=== PATIENT | male | born 1970 | race Caucasian/White ===

== ENCOUNTER 2018-04-16 10:12 | Inpatient (IN) ==
--- NOTE | 2018-04-16 10:43 | ED ---
HPI General Chief complaint: Respiratory Symptoms Stated complaint: Cough/SOB/legs swelling x Sunday Time Seen by Provider: 04/16/18 10:29 History of Present Illness HPI narrative: 48-year-old man with history of heart failure and hypertension presents with 5-6-day history of progressive difficulty breathing, but also some cough and congestion and sputum production. He has no history of fever, although reports that he felt warm sometime last week, but apparently none since, has central chest discomfort, but only when he coughs deeply, and lasts only for seconds and subsides afterwards, but no pressure-like sensation, and no arm neck or jaw pain. Patient is hypoxemic at triage, with acute respiratory distress, tachypneic and severely hypoxemic with O2 saturation 86% on 2 LPM by nasal cannula. His last visit here was 2014, with heart failure, and reports that he has been receiving stable care at [facility], although he sees a different physician every time, and is generally treated with antihypertensive, diuretic, cholesterol medication, and potassium supplementation. He reports that his weights have been stable, but does not appear to check them daily, reports his current weight is 268, and that his best weight in approximately 3 years ago was in the 240s. He is not sure if he has been gaining any weight otherwise. Has no particular swelling of legs. Related Data Home Medications Medication Instructions Recorded Confirmed amlodipine 10 mg PO DAILY 04/16/18 04/16/18 bumetanide 2 mg PO DAILY 04/16/18 04/16/18 escitalopram oxalate [Lexapro] 20 mg PO DAILY 04/16/18 04/16/18 hydralazine 50 mg PO BID 04/16/18 04/16/18 isosorbide mononitrate 60 mg PO DAILY 04/16/18 04/16/18 lisinopril 20 mg PO DAILY 04/16/18 04/16/18 pravastatin 40 mg PO HS 04/16/18 04/16/18 Allergies Allergy/AdvReac Type Severity Reaction Status Date / Time No Known Allergies Allergy Verified 04/16/18 16:36 Review of Systems ROS: all other systems reviewed are negative Constitutional Denies body ache(s), Denies chills and Reports fever(s) ENT Denies sore throat Cardiovascular Denies chest pain, Denies diaphoresis, Denies lightheadedness and Reports dyspnea Respiratory Reports chest congestion, Reports pain with cough, Reports dyspnea and Reports wheezing Gastrointestinal Denies abdominal pain, Denies nausea and Denies vomiting Musculoskeletal Denies back pain Neurologic Denies dizziness, Denies syncope and Denies headache(s) Endocrine Denies heat intolerance, Denies polydipsia and Denies polyuria Hematologic/Lymphatic Denies easy bruising Allergic/Immunologic Denies urticaria, Denies throat swelling and Denies wheezing [facility] Medical History Medical History Anxiety (Acute) Chronic systolic CHF (congestive heart failure) (Acute) Hypertension (Acute) Family History Family History Other Hypertension Social History Social History Substance History: No History of Abuse Second Hand Smoke Exposure: No Smoking Status: Never smoker How Often Do You Have a Drink Containing Alcohol: Never Recent Travel in [facility] within the Last 8 Weeks: No Recent Out of Country Travel within the Last 8 Weeks: No Exam Narrative Exam Narrative: GENERAL: Middle-aged man, significantly obese, appears older than stated age, moderate acute distress, tachypneic, but not in overt pain, oxygen saturation is hypoxemic at 86% when patient is speaking, but goes into the mid 90s when he is resting and breathing steadily and deeply. Vital signs otherwise stable. Patient is afebrile SKIN: Focused skin assessment warm/dry. HEAD: Atraumatic. Normocephalic. EYES: Pupils equal and round. No scleral icterus. No injection or drainage. ENT: No nasal bleeding or discharge. Mucous membranes pink and moist. NECK: Trachea midline. No JVD. CARDIOVASCULAR: Regular rate and rhythm. No murmur appreciated. CHEST: Nontender, no bony discomfort, no costochondral discomfort. RESPIRATORY: Tachypneic with air hunger, speaks in short sentences, but lung laguna are generally clear to auscultation, no rales, rhonchi or wheezing. GASTROINTESTINAL: Abdomen soft, non-tender, nondistended. Hepatic and splenic margins not palpable. MUSCULOSKELETAL: No obvious deformities. No clubbing. No cyanosis. No edema. NEUROLOGICAL: Awake and alert. No obvious cranial nerve deficits. Motor grossly within normal limits. Normal speech. PSYCHIATRIC: Appropriate mood and affect; insight and judgment normal. Course Reevaluation(s) Reevaluation #1: Patient significantly hypoxemic, even on supplemental oxygen, with PO2 of 52, and mild respiratory compensation with PO2 of 7.495, and PCO2 of 29.5. There is no base deficit. Patient advanced to nonrebreather mask. Time: 11:14 Reevaluation #2: Patient improved symptomatically, but still tachypneic, and still requires nonrebreather mask at 4 L of oxygen to maintain 95% saturation. Chest x-ray indicates possibility of mass, with significant interstitial vascular congestion and cardiomegaly, compatible with heart failure primarily, possible underlying tumor. BNP elevated, greater than 1000. Troponin elevated, 1.05, but I think this is Type 2 injury, due to stress of heart failure. No overt ECG findings. Will repeat ECG. BP 179/89, will reduce afterload stress, hydralazine given. Time: 12:00 Initial Documented Vital Signs Temperature 99.2 F 04/16/18 10:31 Pulse Rate 118 H 04/16/18 10:31 Respiratory Rate 26 H 04/16/18 10:31 Blood Pressure 172/95 H 04/16/18 10:31 Pulse Oximetry 88 L 04/16/18 10:31 Last Documented Vital Signs Temperature 99.2 F 04/16/18 10:31 Pulse Rate 108 H 04/16/18 16:17 Respiratory Rate 22 04/16/18 16:17 Blood Pressure 169/93 H 04/16/18 16:17 Pulse Oximetry 97 04/16/18 16:17 Critical Care Time Critical Care Time: Yes Total Critical Care Time: 60 Attestation: 60 minutes of critical care time was provided to this patient in acute respiratory distress, with severe hypoxemia, and acute decompensated heart failure, requiring immediate stabilization, diuresis, and blood pressure management to ensure patient's stability, as conditions were at risk for significant life-threatening decompensation in the absence of intervening stabilization and management. No billable procedures performed during this encounter. Medical Decision Making MDM Narrative Medical decision making narrative: Patient has acute heart failure with typical symptoms of progressive shortness of breath, with good relief with diuresis, preload reduction and afterload reduction, the patient has an elevated troponin level, and patient will be admitted to the CICU of the [facility], after consultation with Dr. Collins and air pollution analyst Dr. Schafer. Patient also has x-ray concerning for right hilar mass, which will need evaluation, but patient is on able to lay down comfortably due to his dyspnea, and further evaluation of this will be deferred until patient is significant significantly improved. Patient's d-dimer is also elevated, and this can be evaluated after is improved as well. Medical Screen Exam Complete: Yes Emergency Medical Condition: Yes Lab Data Result diagrams: 04/16/18 10:50 04/16/18 10:50 Lab Results 04/16/18 04/16/18 04/16/18 Range/Units 10:50 10:50 10:50 CBC w Diff Auto diff final WBC 17.3 H (4.0-11.0) th/mm3 RBC 5.46 (4.50-5.90) mil/mm3 Hgb 15.8 (13.0-17.0) gm/dL Hct 47.3 (39.0-51.0) % MCV 86.7 (80.0-100.0) fL MCH 29.0 (27.0-34.0) pg MCHC 33.4 (32.0-36.0) % RDW 12.6 (11.6-17.2) % Plt Count 344 (150-450) th/mm3 MPV 9.3 (7.0-11.0) fL Neut % (Auto) 88.0 H (16.0-70.0) % Lymph % (Auto) 5.9 L (9.0-44.0) % Hoke % (Auto) 5.5 (0.0-8.0) % Eos % (Auto) 0.0 (0.0-4.0) % Baso % (Auto) 0.6 (0.0-2.0) % Neut # (Auto) 15.2 H (1.8-7.7) th/mm3 Lymph # (Auto) 1.0 (1.0-4.8) th/mm3 Hoke # (Auto) 1.0 H (0.0-0.9) th/mm3 Eos # (Auto) 0.0 (0.0-0.4) th/mm3 Baso # (Auto) 0.1 (0.0-0.2) th/mm3 WBC Differential . Differential Comment . PT 11.4 (9.8-11.6) sec INR 1.1 Ratio APTT (23.4-31.7) sec D-Dimer Quant (PE/DVT) (0.00-0.50) mg/L FEU Puncture Site Right radial Patient Temperature 98.6 O2 Saturation 84 L* (90-100) % ABG pH 7.50 H (7.380-7.420) ABG pCO2 30 L (38-42) mmHg ABG pO2 52 L* (61-120) mmHg ABG HCO3 23 (22-26) mmol/L ABG O2 Content 18.4 (12.0-20.0) Vol % ABG Base Excess -0.4 (-2-2) mmol/L ABG Methemoglobin 1.1 (0-2) % Davin Test Present Hemoglobin 15.7 (12.0-16.0) G/DL Carboxyhemoglobin 1.9 (0-4) % O2 Delivery Device Nasal cannula Liter Flow 2.00 L/M Critical Value Yes Sodium (136-145) meq/L Potassium (3.5-5.1) meq/L Chloride (98-107) meq/L Carbon Dioxide (21.0-32.0) meq/L Anion Gap (5-15) meq/L BUN (7-18) mg/dL Creatinine (0.60-1.30) mg/dL Estimated GFR (>89) mL/min Random Glucose (74-106) mg/dL Lactic Acid (0.4-2.0) mmol/L Calcium (8.5-10.1) mg/dL Magnesium (1.5-2.5) mg/dL Total Bilirubin (0.2-1.0) mg/dL AST (15-37) U/L ALT (12-78) U/L Alkaline Phosphatase (45-117) U/L Troponin I (0.02-0.05) ng/mL B-Natriuretic Peptide (0-100) pg/mL Total Protein (6.4-8.2) g/dL Albumin (3.4-5.0) g/dL Ur Collection Type Urine Color (Yellw/Straw) Urine Clarity (Clear) Urine pH (5.0-8.5) Ur Specific Left Hand (1.002-1.035) Urine Protein (Neg-Trace) mg/dL Urine Glucose (UA) (Negative) mg/dL Urine Ketones (Negative) mg/dL Urine Occult Blood (Negative) Urine Nitrate (Negative) Urine Bilirubin (Negative) Urine Urobilinogen (Less than 2) mg/dL Ur Leukocyte Esterase (Negative) Urine RBC (0-3) /hpf Urine WBC (0-5) /hpf Ur Squamous Epith Cells (0-5) /hpf Fine Granular Casts (None) /lpf Micro UA Comment Ur Microscopic Review Urine Culture Comments 04/16/18 04/16/18 04/16/18 Range/Units 10:50 10:50 10:50 CBC w Diff WBC (4.0-11.0) th/mm3 RBC (4.50-5.90) mil/mm3 Hgb (13.0-17.0) gm/dL Hct (39.0-51.0) % MCV (80.0-100.0) fL MCH (27.0-34.0) pg MCHC (32.0-36.0) % RDW (11.6-17.2) % Plt Count (150-450) th/mm3 MPV (7.0-11.0) fL Neut % (Auto) (16.0-70.0) % Lymph % (Auto) (9.0-44.0) % Hoke % (Auto) (0.0-8.0) % Eos % (Auto) (0.0-4.0) % Baso % (Auto) (0.0-2.0) % Neut # (Auto) (1.8-7.7) th/mm3 Lymph # (Auto) (1.0-4.8) th/mm3 Hoke # (Auto) (0.0-0.9) th/mm3 Eos # (Auto) (0.0-0.4) th/mm3 Baso # (Auto) (0.0-0.2) th/mm3 WBC Differential Differential Comment PT (9.8-11.6) sec INR Ratio APTT (23.4-31.7) sec D-Dimer Quant (PE/DVT) 1.40 H (0.00-0.50) mg/L FEU Puncture Site Patient Temperature O2 Saturation (90-100) % ABG pH (7.380-7.420) ABG pCO2 (38-42) mmHg ABG pO2 (61-120) mmHg ABG HCO3 (22-26) mmol/L ABG O2 Content (12.0-20.0) Vol % ABG Base Excess (-2-2) mmol/L ABG Methemoglobin (0-2) % Davin Test Hemoglobin (12.0-16.0) G/DL Carboxyhemoglobin (0-4) % O2 Delivery Device Liter Flow L/M Critical Value Sodium 132 L (136-145) meq/L Potassium 3.5 (3.5-5.1) meq/L Chloride 96 L (98-107) meq/L Carbon Dioxide 24.8 (21.0-32.0) meq/L Anion Gap 11 (5-15) meq/L BUN 18 (7-18) mg/dL Creatinine 1.00 (0.60-1.30) mg/dL Estimated GFR 80 L (>89) mL/min Random Glucose 200 H (74-106) mg/dL Lactic Acid (0.4-2.0) mmol/L Calcium 8.2 L (8.5-10.1) mg/dL Magnesium 2.2 (1.5-2.5) mg/dL Total Bilirubin 1.0 (0.2-1.0) mg/dL AST 51 H (15-37) U/L ALT 74 (12-78) U/L Alkaline Phosphatase 201 H (45-117) U/L Troponin I 1.05 H* (0.02-0.05) ng/mL B-Natriuretic Peptide 1016 H (0-100) pg/mL Total Protein 8.4 H (6.4-8.2) g/dL Albumin 3.1 L (3.4-5.0) g/dL Ur Collection Type Urine Color (Yellw/Straw) Urine Clarity (Clear) Urine pH (5.0-8.5) Ur Specific Left Hand (1.002-1.035) Urine Protein (Neg-Trace) mg/dL Urine Glucose (UA) (Negative) mg/dL Urine Ketones (Negative) mg/dL Urine Occult Blood (Negative) Urine Nitrate (Negative) Urine Bilirubin (Negative) Urine Urobilinogen (Less than 2) mg/dL Ur Leukocyte Esterase (Negative) Urine RBC (0-3) /hpf Urine WBC (0-5) /hpf Ur Squamous Epith Cells (0-5) /hpf Fine Granular Casts (None) /lpf Micro UA Comment Ur Microscopic Review Urine Culture Comments 04/16/18 04/16/18 04/16/18 Range/Units 10:50 12:00 12:05 CBC w Diff WBC (4.0-11.0) th/mm3 RBC (4.50-5.90) mil/mm3 Hgb (13.0-17.0) gm/dL Hct (39.0-51.0) % MCV (80.0-100.0) fL MCH (27.0-34.0) pg MCHC (32.0-36.0) % RDW (11.6-17.2) % Plt Count (150-450) th/mm3 MPV (7.0-11.0) fL Neut % (Auto) (16.0-70.0) % Lymph % (Auto) (9.0-44.0) % Hoke % (Auto) (0.0-8.0) % Eos % (Auto) (0.0-4.0) % Baso % (Auto) (0.0-2.0) % Neut # (Auto) (1.8-7.7) th/mm3 Lymph # (Auto) (1.0-4.8) th/mm3 Hoke # (Auto) (0.0-0.9) th/mm3 Eos # (Auto) (0.0-0.4) th/mm3 Baso # (Auto) (0.0-0.2) th/mm3 WBC Differential Differential Comment PT Cancelled (9.8-11.6) sec INR Cancelled Ratio APTT 28.7 (23.4-31.7) sec D-Dimer Quant (PE/DVT) (0.00-0.50) mg/L FEU Puncture Site Patient Temperature O2 Saturation (90-100) % ABG pH (7.380-7.420) ABG pCO2 (38-42) mmHg ABG pO2 (61-120) mmHg ABG HCO3 (22-26) mmol/L ABG O2 Content (12.0-20.0) Vol % ABG Base Excess (-2-2) mmol/L ABG Methemoglobin (0-2) % Davin Test Hemoglobin (12.0-16.0) G/DL Carboxyhemoglobin (0-4) % O2 Delivery Device Liter Flow L/M Critical Value Sodium (136-145) meq/L Potassium (3.5-5.1) meq/L Chloride (98-107) meq/L Carbon Dioxide (21.0-32.0) meq/L Anion Gap (5-15) meq/L BUN (7-18) mg/dL Creatinine (0.60-1.30) mg/dL Estimated GFR (>89) mL/min Random Glucose (74-106) mg/dL Lactic Acid 2.4 H (0.4-2.0) mmol/L Calcium (8.5-10.1) mg/dL Magnesium (1.5-2.5) mg/dL Total Bilirubin (0.2-1.0) mg/dL AST (15-37) U/L ALT (12-78) U/L Alkaline Phosphatase (45-117) U/L Troponin I (0.02-0.05) ng/mL B-Natriuretic Peptide (0-100) pg/mL Total Protein (6.4-8.2) g/dL Albumin (3.4-5.0) g/dL Ur Collection Type Clean catch Urine Color Yellow (Yellw/Straw) Urine Clarity Clear (Clear) Urine pH 5.5 (5.0-8.5) Ur Specific Left Hand Greater/equal 1.030 (1.002-1.035) Urine Protein 300 or greater H (Neg-Trace) mg/dL Urine Glucose (UA) Negative (Negative) mg/dL Urine Ketones Trace H (Negative) mg/dL Urine Occult Blood Trace (Negative) Urine Nitrate Negative (Negative) Urine Bilirubin Negative (Negative) Urine Urobilinogen 0.2 (Less than 2) mg/dL Ur Leukocyte Esterase Negative (Negative) Urine RBC 0-3 (0-3) /hpf Urine WBC 0-5 (0-5) /hpf Ur Squamous Epith Cells 0-5 (0-5) /hpf Fine Granular Casts 1-3 H (None) /lpf Micro UA Comment Culture not ind Ur Microscopic Review Microscopic reviewed Urine Culture Comments Culture not ind 04/16/18 Range/Units 14:40 CBC w Diff WBC (4.0-11.0) th/mm3 RBC (4.50-5.90) mil/mm3 Hgb (13.0-17.0) gm/dL Hct (39.0-51.0) % MCV (80.0-100.0) fL MCH (27.0-34.0) pg MCHC (32.0-36.0) % RDW (11.6-17.2) % Plt Count (150-450) th/mm3 MPV (7.0-11.0) fL Neut % (Auto) (16.0-70.0) % Lymph % (Auto) (9.0-44.0) % Hoke % (Auto) (0.0-8.0) % Eos % (Auto) (0.0-4.0) % Baso % (Auto) (0.0-2.0) % Neut # (Auto) (1.8-7.7) th/mm3 Lymph # (Auto) (1.0-4.8) th/mm3 Hoke # (Auto) (0.0-0.9) th/mm3 Eos # (Auto) (0.0-0.4) th/mm3 Baso # (Auto) (0.0-0.2) th/mm3 WBC Differential Differential Comment PT (9.8-11.6) sec INR Ratio APTT (23.4-31.7) sec D-Dimer Quant (PE/DVT) (0.00-0.50) mg/L FEU Puncture Site Patient Temperature O2 Saturation (90-100) % ABG pH (7.380-7.420) ABG pCO2 (38-42) mmHg ABG pO2 (61-120) mmHg ABG HCO3 (22-26) mmol/L ABG O2 Content (12.0-20.0) Vol % ABG Base Excess (-2-2) mmol/L ABG Methemoglobin (0-2) % Davin Test Hemoglobin (12.0-16.0) G/DL Carboxyhemoglobin (0-4) % O2 Delivery Device Liter Flow L/M Critical Value Sodium (136-145) meq/L Potassium (3.5-5.1) meq/L Chloride (98-107) meq/L Carbon Dioxide (21.0-32.0) meq/L Anion Gap (5-15) meq/L BUN (7-18) mg/dL Creatinine (0.60-1.30) mg/dL Estimated GFR (>89) mL/min Random Glucose (74-106) mg/dL Lactic Acid (0.4-2.0) mmol/L Calcium (8.5-10.1) mg/dL Magnesium (1.5-2.5) mg/dL Total Bilirubin (0.2-1.0) mg/dL AST (15-37) U/L ALT (12-78) U/L Alkaline Phosphatase (45-117) U/L Troponin I 3.16 H* (0.02-0.05) ng/mL B-Natriuretic Peptide (0-100) pg/mL Total Protein (6.4-8.2) g/dL Albumin (3.4-5.0) g/dL Ur Collection Type Urine Color (Yellw/Straw) Urine Clarity (Clear) Urine pH (5.0-8.5) Ur Specific Left Hand (1.002-1.035) Urine Protein (Neg-Trace) mg/dL Urine Glucose (UA) (Negative) mg/dL Urine Ketones (Negative) mg/dL Urine Occult Blood (Negative) Urine Nitrate (Negative) Urine Bilirubin (Negative) Urine Urobilinogen (Less than 2) mg/dL Ur Leukocyte Esterase (Negative) Urine RBC (0-3) /hpf Urine WBC (0-5) /hpf Ur Squamous Epith Cells (0-5) /hpf Fine Granular Casts (None) /lpf Micro UA Comment Ur Microscopic Review Urine Culture Comments Imaging Data Radiologist's impression: Chest X-Ray 04/16/18 10:44 CONCLUSION: Masslike opacity right hilum Cardiomegaly with interstitial vascular congestion. ECG Data EKG Prior to Arrival: No Attestation: I personally reviewed and interpreted this ECG as follows: Interpretation: or any signs of cardiac progression at theEKG taken at 1025 hrs. is of poor technical quality, no prior tracings available for review. Baseline rhythm is sinus tachycardia, and there are frequent multifocal PVCs. QRS morphology shows nonspecific intraventricular conduction delay, with an increased QRS duration of 122 ms. QRS axis is normal at [address] segments showed nonspecific changes, but no acute elevations or depressions, and T waves are upright throughout on observation of the [place] rhythm. No STEMI is identified, no ischemia identified. NH interval is 120 ms, QT interval is normal at 412 ms corrected. Repeat EKG taken at 1328 hrs. shows stable ventricular bigeminy, but no evidence of signs of ST elevation or T wave inversion negative rhythm. Ventricular rate has decreased to 111 bpm, NH interval is 164 ms, QRS interval remains prolonged at 115 ms, QT interval remains unchanged at 421 ms corrected. This is abnormal tracing primarily significant for ventricular bigeminy. Discharge Plan Discharge Disposition Patient Disposition: 02 Transfer To [facility] [place] Discharge Condition Condition: Fair Discharge Details Diagnosis: Heart failure of unknown etiology, Acute respiratory distress, Hypoxemia, Hilar mass, D-dimer, elevated Physicians Team ED Provider: Alexey Palencia Primary Care Provider: LIZZ, Attending Provider: Jose R Judd Other Providers: Erickson Rushing Status ED Status: Admitted Patient
[2018-04-16 10:57] LABS: ABG Base Excess -0.4 mmol/L (-2-2); ABG PCO2 30 mmHg (38-42); ABG PO2 52 mmHg (61-120)
--- NOTE | 2018-04-16 11:10 | XR ---
EXAM DATE: 04/16/2018 11:06 AM EST AGE/SEX: 48 years / Male INDICATIONS: Short of breath for five days. CLINICAL DATA: This is the patient's initial encounter. Patient reports that signs and symptoms have been present for 4 - 6 days and indicates a pain score of 0/10. MEDICAL/SURGICAL HISTORY: . Hypertension and cardiomyopathy. Congestive heart failure None. COMPARISON: [facility], CHEST SINGLE AP, 12/26/2014. . FINDINGS: A masslike opacity is identified in the right hilum. There is generalized interstitial vascular congestion with patchy airspace disease bilaterally. The heart is moderately to markedly enlarged. There are no significant pleural effusions. CONCLUSION: Masslike opacity right hilum Cardiomegaly with interstitial vascular congestion. Electronically signed by: Reji Hernandez MD 04/16/2018 11:08 AM EST
[2018-04-16 11:16] LABS: Baso # (Auto) 0.1 th/mm3 (0.0-0.2); Baso % (Auto) 0.6 % (0.0-2.0); Hematocrit 47.3 % (39.0-51.0); Hemoglobin 15.8 gm/dL (13.0-17.0); Lymph % (Auto) 5.9 % (9.0-44.0); Mean Corpuscular HGB Conc 33.4 % (32.0-36.0); Mean Corpuscular Volume 86.7 fL (80.0-100.0); Mean Platelet Volume 9.3 fL (7.0-11.0); Mono % (Auto) 5.5 % (0.0-8.0); Neut # (Auto) 15.2 th/mm3 (1.8-7.7); Platelet Count 344 th/mm3 (150-450); Red Blood Count 5.46 mil/mm3 (4.50-5.90); Red Cell Distribution Width 12.6 % (11.6-17.2); White Blood Count 17.3 th/mm3 (4.0-11.0)
[2018-04-16 11:32] LABS: Chloride 96 meq/L (98-107); Potassium 3.5 meq/L (3.5-5.1); Sodium 132 meq/L (136-145)
[2018-04-16 11:34] LABS: INR 1.1 Ratio; Prothrombin Time 11.4 sec (9.8-11.6)
[2018-04-16 11:36] LABS: Calcium 8.2 mg/dL (8.5-10.1)
[2018-04-16 11:37] LABS: Albumin 3.1 g/dL (3.4-5.0); Anion Gap 11 meq/L (5-15); Blood Urea Nitrogen 18 mg/dL (7-18); Carbon Dioxide 24.8 meq/L (21.0-32.0); Glucose,Random 200 mg/dL (74-106); Magnesium 2.2 mg/dL (1.5-2.5)
[2018-04-16 11:40] LABS: Alanine Aminotransferase 74 U/L (12-78); Aspartate Aminotransferase 51 U/L (15-37); Glomerular Filtration Rate 80 mL/min (>89)
[2018-04-16 11:41] LABS: Total Protein 8.4 g/dL (6.4-8.2)
[2018-04-16 11:43] LABS: Alkaline Phosphatase 201 U/L (45-117)
[2018-04-16 12:03] LABS: Troponin I 1.05 ng/mL (0.02-0.05)
--- NOTE | 2018-04-16 12:14 | ECG ---
Date Performed: 04/16/2018 Time Performed: 10:25:18 PTAGE: 48 years EKG: SINUS TACHYCARDIA WITH FREQUENT VENTRICULAR PREMATURE COMPLEXES MODERATE INTRAVENTRICULAR C ONDUCTION DELAY ABNORMAL RHYTHM ECG PREVIOUS TRACING : 12/26/2014 17.22 DOCTOR: Martin Cody Interpretating Date/Time 04/16/2018 12:12:49
[2018-04-16] MEDS ORDERED: hydrALAZINE HCl Inj 20 MG/ML Vial IV.PUSH ONE (12:18)
[2018-04-16 12:21] LABS: Bilirubin,Urine Negative (Negative); Clarity,Urine Clear (Clear); Color,Urine Yellow (Yellw/Straw); Glucose,Urine (UA) Negative (Negative); Leukocyte Esterase,Urine Negative (Negative); Nitrite,Urine Negative (Negative); PH,Urine 5.5 (5.0-8.5); Specific Gravity,Urine Greater/Equal 1.030 (1.002-1.035); Urobilinogen,Urine 0.2 mg/dL (Less than 2)
[2018-04-16 12:30] LABS: RBC,Urine 0-3 /hpf (0-3); Squamous Epithelial Cell,Urine 0-5 /hpf (0-5); WBC,Urine 0-5 /hpf (0-5)
[2018-04-16] MEDS ORDERED: Acetaminophen 325 MG Tablet PO PRN ×2 (14:22→17:00)
[2018-04-16] MEDS: Heparin Drip 25,000 UNIT/250 ML BAG IV.CONT PRN (16:20)
[2018-04-16] MEDS ORDERED: Heparin - SQ 10,000 UNITS/ML Vial SQ SCH (17:00)
[2018-04-16] MEDS ORDERED: hydrALAZINE HCl Inj 20 MG/ML Vial IV.PUSH PRN (17:00)
--- NOTE | 2018-04-16 17:26 | P.HPIM ---
History of Present Illness Primary Care Physician: UNKNOWN Chief Complaint: Shortness of breath History of Present Illness: The patient is a 48-year-old male with a past medical history of CHF who is presenting to the hospital with worsening shortness of breath. The patient says that on he was working and had some [place] food when he started to feel increased shortness of breath and had some dark mucus production. The patient then developed upper chest pain that he likened to having a chest cold. He said that he had a panic attack that day. He said his symptoms gradually got better and he did well throughout the weekend. Starting yesterday he had worsening shortness of breath. Family noticed that he cannot sleep flat on his back and has to sleep elevated. The patient also endorses swelling in his feet. He has lost energy over the past few days. He does state that he has run out of several home medications including his water pill and his Lexapro. He says it has been a few weeks since he took those medications. He says he did have a bout of heart failure several years ago. He says that his breathing is currently improved. He says he has not had any further chest pain since last . He has not been following up with cardiology recently. Inpatient Certification: I certify that the inpatient services were ordered in accordance with Medicare regulations governing the order. This includes certification that hospital inpatient services are reasonable and necessary and in the case of services not specified as inpatient-only under 42 CFR 419.22(n), that they are appropriately provided as inpatient services in accordance to with the 2-midnight benchmark under 43 CFR 412.3(e) Estimated Total Length of Stay (Days): 2 Plans for Post Hospital Care: Not yet determined Review of Systems All other systems reviewed negative except as stated in HPI [facility] - History History Provided By: Patient - Medical History Medical History: Medical History (Last Updated 04/16/18 @ 17:19 by Jose R Judd DO) Anxiety Chronic systolic CHF (congestive heart failure) Hypertension - Family History Family History: Family History (Last Updated 04/16/18 @ 17:20 by Jose R Judd DO) Other Hypertension - Social History I have reviewed the patient's Social History: Yes - Tobacco History Second Hand Smoke Exposure: No Smoking Status: Never smoker - Alcohol History How Often Do You Have a Drink Containing Alcohol: Never - Substance Use History Substance History: No History of Abuse - Travel History Recent Travel in the [place] Within the Last 8 Weeks: No Recent Travel Out of the Country Within the Last 8 Weeks: No - Immunization History Tetanus Immunization: Unsure Medications and Allergies Active Medications: Active Medications Acetaminophen (Tylenol) 650 mg PO Q4H PRN PRN Reason: HEADACHE OR TEMP > 101 F Amlodipine Besylate (Norvasc) 10 mg PO DAILY [facility] Aspirin (Ecotrin) 325 mg PO DAILY [facility] Enalaprilat (Vasotec Inj) 1.25 mg IV.PUSH Q6H PRN PRN Reason: SEE LABEL COMMENTS Escitalopram Oxalate (Lexapro) 20 mg PO DAILY [facility] Furosemide (Lasix Inj) 40 mg IV.PUSH BID@0900,1800 [facility] Hydralazine HCl (Apresoline) 50 mg PO BID DAN[facility] Hydralazine HCl (Apresoline Inj) 10 mg IV.PUSH Q6H PRN PRN Reason: SEE LABEL COMMENTS Heparin Sodium/Dextrose (Heparin/D5w 25,000 U/250 Ml) 25,000 unit in 250 mls @ 0 mls/hr IV.CONT TITRATE PRN; Protocol PRN Reason: Per Protocol Last Admin: 04/16/18 16:20 Dose: 1,000 units/hr, 10 mls/hr Isosorbide Mononitrate (Imdur) 60 mg PO DAILY [facility] Lisinopril (Prinivil) 20 mg PO DAILY [facility] Metoprolol Tartrate (Lopressor) 12.5 mg PO BID [facility] Nitroglycerin (Nitrostat Sl) 0.4 mg SL Q5M PRN PRN Reason: CHEST PAIN Nitroglycerin (Nitro-Bid 2% Oint) 1 inch TOPICAL Q6HR [facility] Pravastatin Sodium (Pravachol) 40 mg PO HS [facility] Sodium Chloride (Ns Inj) 2 ml IV.FLUSH BID DANIELLA Sodium Chloride (Ns Inj) 2 ml IV.FLUSH UNSCH PRN PRN Reason: FLUSH AFTER USING IV ACCESS Allergies Allergy/AdvReac Type Severity Reaction Status Date / Time No Known Allergies Allergy Verified 04/16/18 16:36 Home Medications Medication Instructions Recorded Confirmed Type amlodipine 10 mg PO DAILY 04/16/18 04/16/18 History bumetanide 2 mg PO DAILY 04/16/18 04/16/18 History escitalopram oxalate [Lexapro] 20 mg PO DAILY 04/16/18 04/16/18 History hydralazine 50 mg PO BID 04/16/18 04/16/18 History isosorbide mononitrate 60 mg PO DAILY 04/16/18 04/16/18 History lisinopril 20 mg PO DAILY 04/16/18 04/16/18 History pravastatin 40 mg PO HS 04/16/18 04/16/18 History Exam Vital signs: Vital Signs 04/16/18 10:31 04/16/18 10:35 04/16/18 10:45 Temperature 99.2 F Pulse Rate 118 H 110 H Respiratory Rate 26 H Blood Pressure 172/95 H Pulse Oximetry 88 L 93 L 04/16/18 11:32 04/16/18 11:34 04/16/18 11:36 Temperature Pulse Rate 118 H Respiratory Rate 22 Blood Pressure 179/78 H Pulse Oximetry 95 95 98 04/16/18 12:34 04/16/18 12:52 04/16/18 13:07 Temperature Pulse Rate 113 H Respiratory Rate 22 Blood Pressure 176/92 H 174/71 H 178/81 H Pulse Oximetry 97 04/16/18 14:47 04/16/18 14:48 04/16/18 16:17 Temperature Pulse Rate 110 H 108 H Respiratory Rate 20 22 Blood Pressure 167/79 H 169/93 H Pulse Oximetry 96 96 97 Intake & Output 04/15/18 04/16/18 04/16/18 18:59 06:59 18:59 Intake Total 150 / 150 Output Total 850 / 850 Balance -700 / -700 Weight 126 kg Intake: IV 150 / 150 Levaquin 750 mg Premix Inj 150 150 / 150 ML @ 100 mls/hr IV.SIG ONCE ONE Rx#:[id number] Output: Urine 850 / 850 Narrative: GENERAL: Appears older than stated age, no acute distress. SKIN: Focused skin assessment warm/dry. HEAD: Atraumatic. Normocephalic. EYES: Pupils equal and round. No scleral icterus. No injection or drainage. ENT: No nasal bleeding or discharge. Mucous membranes pink and moist. NECK: Trachea midline. No JVD. CARDIOVASCULAR: Tachycardic. No murmur appreciated. RESPIRATORY: Lung laguna are generally clear to auscultation, no rales, rhonchi or wheezing. GASTROINTESTINAL: Abdomen soft, non-tender, nondistended. Hepatic and splenic margins not palpable. MUSCULOSKELETAL: No obvious deformities. No clubbing. No cyanosis. 1+ edema. NEUROLOGICAL: Awake and alert. No obvious cranial nerve deficits. Motor grossly within normal limits. Normal speech. PSYCHIATRIC: Appropriate mood and affect; insight and judgment normal. Results - Labs CBC & Chem 7: 04/16/18 10:50 04/16/18 10:50 Labs: Short CBC 04/16/18 Range/Units 10:50 WBC 17.3 H (4.0-11.0) th/mm3 Hgb 15.8 (13.0-17.0) gm/dL Hct 47.3 (39.0-51.0) % Plt Count 344 (150-450) th/mm3 BMP 04/16/18 10:50 Sodium 132 L Potassium 3.5 Chloride 96 L Carbon Dioxide 24.8 BUN 18 Creatinine 1.00 Calcium 8.2 L Cardiac Enzymes 04/16/18 04/16/18 Range/Units 10:50 14:40 Troponin I 1.05 H* 3.16 H* (0.02-0.05) ng/mL Liver Function 04/16/18 Range/Units 10:50 Total Bilirubin 1.0 (0.2-1.0) mg/dL AST 51 H (15-37) U/L ALT 74 (12-78) U/L Alkaline Phosphatase 201 H (45-117) U/L Albumin 3.1 L (3.4-5.0) g/dL Urine 04/16/18 Range/Units 12:00 Urine Color Yellow (Yellw/Straw) Urine Clarity Clear (Clear) Urine pH 5.5 (5.0-8.5) Ur Specific [place] Greater/equal 1.030 (1.002-1.035) Urine Protein 300 or greater H (Neg-Trace) mg/dL Urine Glucose (UA) Negative (Negative) mg/dL - Imaging Impressions Chest X-Ray 04/16/18 10:44 CONCLUSION: Masslike opacity right hilum Cardiomegaly with interstitial vascular congestion. Caprini VTE Risk Assessment Caprini VTE Risk Assessment: Moderate/High Risk (score >= 2) Caprini Risk Assessment Model: Point Value = 1 Point Value = 2 Point Value = 3 Point Value = 5 Age 41-60 Minor surgery BMI > 25 kg/m2 Swollen legs Varicose veins or History of unexplained or recurrent spontaneous Oral contraceptives or hormone replacement Sepsis (< 1 month) Serious lung disease, including pneumonia (< 1 month) Abnormal pulmonary function Acute myocardial infarction Congestive heart failure (< 1 month) History of inflammatory bowel disease Medical patient at bed rest Age 61-74 Arthroscopic surgery Major open surgery (> 45 min) Laparoscopic surgery (> 45 min) Malignancy Confined to bed (> 72 hours) Immobilizing plaster cast Central venous access Age >= 75 History of VTE Family history of VTE Factor V Leiden Prothrombin [id number] Lupus anticoagulant Anticardiolipin antibodies Elevated serum homocysteine Heparin-induced thrombocytopenia Other congenital or acquired thrombophilia Stroke (< 1 month) Elective arthroplasty Hip, pelvis, or leg fracture Acute spinal cord injury (< 1 month) Prophylaxis Regimen: Total Risk Factor Score Risk Level Prophylaxis Regimen 0-1 Low Early ambulation 2 Moderate Order ONE of the following: *Sequential Compression Device (SCD) *Heparin 5000 units SQ BID 3-4 Higher Order ONE of the following medications: *Heparin 5000 units SQ TID *Enoxaparin/Lovenox 40 mg SQ daily (WT < 150 kg, CrCl > 30 mL/min) *Enoxaparin/Lovenox 30 mg SQ daily (WT < 150 kg, CrCl > 10-29 mL/min) *Enoxaparin/Lovenox 30 mg SQ BID (WT < 150 kg, CrCl > 30 mL/min) AND/OR *Sequential Compression Device (SCD) 5 or more Highest Order ONE of the following medications: *Heparin 5000 units SQ TID (Preferred with Epidurals) *Enoxaparin/Lovenox 40 mg SQ daily (WT < 150 kg, CrCl > 30 mL/min) *Enoxaparin/Lovenox 30 mg SQ daily (WT < 150 kg, CrCl > 10-29 mL/min) *Enoxaparin/Lovenox 30 mg SQ BID (WT < 150 kg, CrCl > 30 mL/min) AND *Sequential Compression Device (SCD) Assessment and Plan - Plan Acute on chronic systolic CHF/NSTEMI Patient presents with shortness of breath and lower extremity edema. BNP elevated at 1016. Chest x-ray with vascular congestion. The patient ran out of several medications including his diuretic. Troponin is elevated at 3.16. EKG with sinus rhythm, frequent PVCs and intraventricular conduction delay. -Cardiology consult requested. The patient is pending a transfer to the [facility]. -Telemetry. -Lasix 40 mg IV BID. -follow Is and Os, daily weights. -Continue heparin drip. -Check lipid profile and A1c. -Blood pressure control. -trend trops and EKGs. Accelerated hypertension Blood pressure poorly controlled at this time. -Resume home medications. -Hydralazine or Vasotec IV as needed. -Nitropaste. Lung mass Chest x-ray with masslike opacity at the right hilum. -We will repeat chest x-ray or pursue CT of the chest once respiratory and cardiac status have improved. Hyponatremia Appears hypervolemic. -diurese and monitor. Noncompliance The pt ran out of many medications weeks ago and has not bothered to get them refilled. -compliance recommended. -resume home meds. PPx: Heparin gtt Discharge Planning: Transfer to [facility]
[2018-04-16] MEDS: amLODIPine 10 MG Tablet PO SCH (19:50)
[2018-04-16] MEDS: Lisinopril 20 MG Tablet PO SCH (19:50)
--- NOTE | 2018-04-16 19:54 | P.CONCA ---
History of Present Illness Service: Cardiology Consult date: 04/16/18 Requesting Physician: Jose R Judd Reason for Consult: Elevated troponin and CHF Primary Care Provider: UNKNOWN Chief Complaint: Shortness of breath History of Present Illness: This is a 48-year-old male with a past medical history of CHF. He presented to the [facility] Emergency Department with complaints of increase shortness of breath since of last week. He states that he had some [place] food that day and developed SOB with some dark mucous production. He stated, that his SOB improved over the weekend but started to increase yesterday. He also noticed swelling of his lower extremities and increase fatigue. He informed me that he ran out of some of his medications including his water pill a few weeks ago and has not followed up with a wealth management consultant in a few years. He currently states that his breathing is slowly improving and that he has not had any CP since of last week. Review of Systems All other systems reviewed negative except as stated in HPI [facility] - History History Provided By: Patient - Medical History Medical History: Medical History (Last Updated 04/16/18 @ 17:19 by Jose R Judd DO) Anxiety Chronic systolic CHF (congestive heart failure) Hypertension - Family History Family History: Family History (Last Updated 04/16/18 @ 17:20 by Jose R Judd DO) Other Hypertension - Tobacco History Second Hand Smoke Exposure: No Smoking Status: Never smoker - Alcohol History How Often Do You Have a Drink Containing Alcohol: Never - Substance Use History Substance History: No History of Abuse - Travel History Recent Travel in the [place] Within the Last 8 Weeks: No Recent Travel Out of the Country Within the Last 8 Weeks: No - Immunization History Tetanus Immunization: Unsure Medications and Allergies Allergies Allergy/AdvReac Type Severity Reaction Status Date / Time No Known Allergies Allergy Verified 04/16/18 16:36 Home Medications Medication Instructions Recorded Confirmed Type amlodipine 10 mg PO DAILY 04/16/18 04/16/18 History bumetanide 2 mg PO DAILY 04/16/18 04/16/18 History escitalopram oxalate [Lexapro] 20 mg PO DAILY 04/16/18 04/16/18 History hydralazine 50 mg PO BID 04/16/18 04/16/18 History isosorbide mononitrate 60 mg PO DAILY 04/16/18 04/16/18 History lisinopril 20 mg PO DAILY 04/16/18 04/16/18 History pravastatin 40 mg PO HS 04/16/18 04/16/18 History Active Medications: Active Medications Acetaminophen (Tylenol) 650 mg PO Q4H PRN PRN Reason: HEADACHE OR TEMP > 101 F Amlodipine Besylate (Norvasc) 10 mg PO DAILY [facility] Aspirin (Ecotrin) 325 mg PO DAILY DANIELLA Enalaprilat (Vasotec Inj) 1.25 mg IV.PUSH Q6H PRN PRN Reason: SEE LABEL COMMENTS Escitalopram Oxalate (Lexapro) 20 mg PO DAILY DANIELLA Furosemide (Lasix Inj) 40 mg IV.PUSH BID@0900,1800 DANIELLA Hydralazine HCl (Apresoline) 50 mg PO BID DANIELLA Hydralazine HCl (Apresoline Inj) 10 mg IV.PUSH Q6H PRN PRN Reason: SEE LABEL COMMENTS Heparin Sodium/Dextrose (Heparin/D5w 25,000 U/250 Ml) 25,000 unit in 250 mls @ 0 mls/hr IV.CONT TITRATE PRN; Protocol PRN Reason: Per Protocol Last Titration: 04/16/18 17:37 Dose: 1,000 units/hr, 10 mls/hr Isosorbide Mononitrate (Imdur) 60 mg PO DAILY [facility] Lisinopril (Prinivil) 20 mg PO DAILY [facility] Metoprolol Tartrate (Lopressor) 12.5 mg PO BID [facility] Nitroglycerin (Nitrostat Sl) 0.4 mg SL Q5M PRN PRN Reason: CHEST PAIN Nitroglycerin (Nitro-Bid 2% Oint) 1 inch TOPICAL Q6HR [facility] Pravastatin Sodium (Pravachol) 40 mg PO HS [facility] Sodium Chloride (Ns Inj) 2 ml IV.FLUSH BID DANIELLA Sodium Chloride (Ns Inj) 2 ml IV.FLUSH UNSCH PRN PRN Reason: FLUSH AFTER USING IV ACCESS Exam Vital signs: Vital Signs 04/16/18 10:31 04/16/18 10:35 04/16/18 10:45 Temperature 99.2 F Pulse Rate 118 H 110 H Respiratory Rate 26 H Blood Pressure 172/95 H Pulse Oximetry 88 L 93 L 04/16/18 11:32 04/16/18 11:34 04/16/18 11:36 Temperature Pulse Rate 118 H Respiratory Rate 22 Blood Pressure 179/78 H Pulse Oximetry 95 95 98 04/16/18 12:34 04/16/18 12:52 04/16/18 13:07 Temperature Pulse Rate 113 H Respiratory Rate 22 Blood Pressure 176/92 H 174/71 H 178/81 H Pulse Oximetry 97 04/16/18 14:47 04/16/18 14:48 04/16/18 16:17 Temperature Pulse Rate 110 H 108 H Respiratory Rate 20 22 Blood Pressure 167/79 H 169/93 H Pulse Oximetry 96 96 97 04/16/18 17:29 04/16/18 18:15 Temperature Pulse Rate 112 H 118 H Respiratory Rate 20 18 Blood Pressure 172/92 H 140/90 Pulse Oximetry 96 97 Intake & Output 04/16/18 04/16/18 04/17/18 06:59 18:59 06:59 Intake Total 160 / 160 Output Total 850 / 850 Balance -690 / -690 Weight 126 kg Intake: IV 160 / 160 Heparin/D5W 25,000 U/250 mL 25, 10 / 10 000 unit In 250 ml @ Per Protocol IV.CONT TITRATE PRN Rx #:[id number] Levaquin 750 mg Premix Inj 150 150 / 150 ML @ 100 mls/hr IV.SIG ONCE ONE Rx#:[id number] Output: Urine 850 / 850 - Constitutional mild distress - Routine HEENT Exam Head: Present: normocephalic Eye: Present: PERRL ENT: Present: mucous membranes moist - Routine Neck Exam Present: full ROM - Routine Respiratory Exam Present: decreased breath sounds - Routine Cardiovascular Exam Present: S1, S2. Absent: murmur, gallop, rubs - Routine Abdominal Exam Present: normoactive bowel sounds - Routine Extremities Exam Present: edema, full ROM, pulses intact, normal capillary refill. Absent: cyanosis, clubbing - Routine Skin Exam Present: intact - Routine Neurological Exam Present: oriented X3 Results 04/16/18 10:50 04/16/18 10:50 Cardiac Enzymes 04/16/18 04/16/18 04/16/18 Range/Units 10:50 10:50 14:40 AST 51 H (15-37) U/L Troponin I 1.05 H* 3.16 H* (0.02-0.05) ng/mL B-Natriuretic Peptide 1016 H (0-100) pg/mL Coagulation 04/16/18 04/16/18 04/16/18 Range/Units 10:50 10:50 10:50 PT 11.4 Cancelled (9.8-11.6) sec APTT 28.7 (23.4-31.7) sec B-Natriuretic Peptide 1016 H (0-100) pg/mL CBC 04/16/18 Range/Units 10:50 WBC 17.3 H (4.0-11.0) th/mm3 RBC 5.46 (4.50-5.90) mil/mm3 Hgb 15.8 (13.0-17.0) gm/dL Hct 47.3 (39.0-51.0) % Plt Count 344 (150-450) th/mm3 Neut # (Auto) 15.2 H (1.8-7.7) th/mm3 Lymph # (Auto) 1.0 (1.0-4.8) th/mm3 [place] # (Auto) 1.0 H (0.0-0.9) th/mm3 Eos # (Auto) 0.0 (0.0-0.4) th/mm3 Baso # (Auto) 0.1 (0.0-0.2) th/mm3 Comprehensive Metabolic Panel 04/16/18 Range/Units 10:50 Sodium 132 L (136-145) meq/L Potassium 3.5 (3.5-5.1) meq/L Chloride 96 L (98-107) meq/L Carbon Dioxide 24.8 (21.0-32.0) meq/L BUN 18 (7-18) mg/dL Creatinine 1.00 (0.60-1.30) mg/dL Calcium 8.2 L (8.5-10.1) mg/dL AST 51 H (15-37) U/L ALT 74 (12-78) U/L Alkaline Phosphatase 201 H (45-117) U/L Total Protein 8.4 H (6.4-8.2) g/dL Albumin 3.1 L (3.4-5.0) g/dL Intake and Output 04/16/18 04/16/18 04/16/18 06:59 14:59 22:59 Intake Total 150 / 150 10 / 10 Output Total 450 / 450 400 / 400 Balance -300 / -300 -390 / -390 Intake: IV 150 / 150 10 / 10 Heparin/D5W 25,000 U/250 mL 25, 10 / 10 000 unit In 250 ml @ Per Protocol IV.CONT TITRATE PRN Rx #:[id number] Levaquin 750 mg Premix Inj 150 150 / 150 ML @ 100 mls/hr IV.SIG ONCE ONE Rx#:[id number] Output: Urine 450 / 450 400 / 400 Other: Weight 126 kg Patient Weight 04/17/18 06:59 Weight 126 kg - Imaging and Cardiology Imaging: Impressions Chest X-Ray 04/16/18 10:44 CONCLUSION: Masslike opacity right hilum Cardiomegaly with interstitial vascular congestion. Assessment and Plan - Assessment (1) Heart failure of unknown etiology Code(s): I50.9 - Heart failure, unspecified Status: Acute (2) Acute respiratory distress Code(s): R06.03 - Acute respiratory distress Status: Acute (3) Hypoxemia Code(s): R09.02 - Hypoxemia Status: Acute (4) D-dimer, elevated Code(s): R79.89 - Other specified abnormal findings of blood chemistry Status : Acute - Plan Patient currently on a 100% NRB, continue diuresis with Lasix and CHF treatment plan. We will obtain a 2D echo to evaluate LV function. Troponin levels are slightly elevated, we will continue to monitor. Continue to monitor patient on telemetry. We will continue to follow the patient during his hospitalization The patient was seen and evaluated by Dr. Ruhsing who participated in care, management and decision making. - Attending Attestation Patient seen and examined. I reviewed and agree with the evaluation and plan as presented. Obtain echo to evaluate LV function. Troponin elevated, may need ischemic workup once stabilized. Continue therapy for CHF including diuresis.
[2018-04-16 20:44] LABS: Chol/HDL Ratio 4.02 Ratio; HDL Cholesterol 49.4 mg/dL (40.0-60.0)
[2018-04-16 21:35] LABS: Hemoglobin A1c 8.8 % (4.3-6.0)
[2018-04-16] MEDS: hydrALAZINE 50 MG Tablet PO SCH (23:57)
[2018-04-16] MEDS: Metoprolol Tartrate 25 MG Tablet PO SCH (23:59)
[2018-04-17 07:13] LABS: Baso # (Auto) 0.1 th/mm3 (0.0-0.2); Baso % (Auto) 0.4 % (0.0-2.0); Hematocrit 43.1 % (39.0-51.0); Hemoglobin 14.6 gm/dL (13.0-17.0); Lymph # (Auto) 1.4 th/mm3 (1.0-4.8); Lymph % (Auto) 8.9 % (9.0-44.0); Mean Corpuscular HGB Conc 33.8 % (32.0-36.0); Mean Corpuscular Hemoglobin 30.3 pg (27.0-34.0); Mean Corpuscular Volume 89.7 fL (80.0-100.0); Mean Platelet Volume 9.6 fL (7.0-11.0); Mono # (Auto) 1.7 th/mm3 (0.0-0.9); Mono % (Auto) 10.8 % (0.0-8.0); Neut # (Auto) 12.4 th/mm3 (1.8-7.7); Neut % (Auto) 79.9 % (16.0-70.0); Platelet Count 257 th/mm3 (150-450); Red Cell Distribution Width 13.5 % (11.6-17.2); White Blood Count 15.5 th/mm3 (4.0-11.0)
[2018-04-17 07:47] LABS: Albumin 2.9 g/dL (3.4-5.0); Anion Gap 11 meq/L (5-15); Aspartate Aminotransferase 72 U/L (15-37); Blood Urea Nitrogen 29 mg/dL (7-18); Calcium 8.3 mg/dL (8.5-10.1); Carbon Dioxide 26.6 meq/L (21.0-32.0); Chloride 94 meq/L (98-107); Glomerular Filtration Rate 59 mL/min (>89); Glucose,Random 171 mg/dL (74-106); Potassium 3.4 meq/L (3.5-5.1); Sodium 132 meq/L (136-145)
[2018-04-17 07:48] LABS: Alanine Aminotransferase 60 U/L (12-78)
[2018-04-17 07:51] LABS: Alkaline Phosphatase 163 U/L (45-117); Total Protein 7.7 g/dL (6.4-8.2)
[2018-04-17] MEDS ORDERED: Lisinopril 20 MG Tablet PO SCH (09:00)
[2018-04-17] MEDS: Isosorbide Mononitrate 60 MG ER 24HR Tablet (Imdur) PO SCH (09:24)
[2018-04-17] MEDS: amLODIPine 10 MG Tablet PO SCH ×2 (09:24→14:00)
[2018-04-17] MEDS: Metoprolol Tartrate 25 MG Tablet PO SCH ×2 (09:25→22:00)
[2018-04-17] MEDS: Lisinopril 20 MG Tablet PO SCH (09:25)
[2018-04-17] MEDS: hydrALAZINE 50 MG Tablet PO SCH ×3 (09:26→22:01)
--- NOTE | 2018-04-17 10:50 | P.PNCA ---
Subjective Interval history: Patient denies any CP, pressure, palpitations or dizziness. Patient complains of edema and SOB. Patient states that the edema is improving and is breathing is getting easier. Medications and Allergies Allergies Allergy/AdvReac Type Severity Reaction Status Date / Time No Known Allergies Allergy Verified 04/16/18 16:36 Home Medications Medication Instructions Recorded Confirmed Type amlodipine 10 mg PO DAILY 04/16/18 04/16/18 History bumetanide 2 mg PO DAILY 04/16/18 04/16/18 History escitalopram oxalate [Lexapro] 20 mg PO DAILY 04/16/18 04/16/18 History hydralazine 50 mg PO BID 04/16/18 04/16/18 History isosorbide mononitrate 60 mg PO DAILY 04/16/18 04/16/18 History lisinopril 20 mg PO DAILY 04/16/18 04/16/18 History pravastatin 40 mg PO HS 04/16/18 04/16/18 History Active Medications: Active Medications Acetaminophen (Tylenol) 650 mg PO Q4H PRN PRN Reason: HEADACHE OR TEMP > 101 F Amlodipine Besylate (Norvasc) 10 mg PO DAILY [facility] Last Admin: 04/16/18 19:50 Dose: 10 mg Aspirin (Ecotrin) 325 mg PO DAILY [facility] Last Admin: 04/17/18 09:25 Dose: 325 mg Enalaprilat (Vasotec Inj) 1.25 mg IV.PUSH Q6H PRN PRN Reason: SEE LABEL COMMENTS Escitalopram Oxalate (Lexapro) 20 mg PO DAILY [facility] Last Admin: 04/17/18 09:26 Dose: 20 mg Furosemide (Lasix Inj) 40 mg IV.PUSH BID@0900,1800 [facility] Last Admin: 04/17/18 09:24 Dose: 40 mg Hydralazine HCl (Apresoline) 50 mg PO BID [facility] Last Admin: 04/16/18 23:57 Dose: 50 mg Hydralazine HCl (Apresoline Inj) 10 mg IV.PUSH Q6H PRN PRN Reason: SEE LABEL COMMENTS Heparin Sodium/Dextrose (Heparin/D5w 25,000 U/250 Ml) 25,000 unit in 250 mls @ 0 mls/hr IV.CONT TITRATE PRN; Protocol PRN Reason: Per Protocol Last Titration: 04/16/18 17:37 Dose: 1,000 units/hr, 10 mls/hr Isosorbide Mononitrate (Imdur) 60 mg PO DAILY [facility] Last Admin: 04/17/18 09:24 Dose: 60 mg Lisinopril (Prinivil) 20 mg PO DAILY [facility] Last Admin: 04/17/18 09:25 Dose: 20 mg Metoprolol Tartrate (Lopressor) 12.5 mg PO BID [facility] Last Admin: 04/17/18 09:25 Dose: 12.5 mg Nitroglycerin (Nitrostat Sl) 0.4 mg SL Q5M PRN PRN Reason: CHEST PAIN Nitroglycerin (Nitro-Bid 2% Oint) 1 inch TOPICAL Q6HR [facility] Last Admin: 04/17/18 05:41 Dose: 1 inch Pravastatin Sodium (Pravachol) 40 mg PO HS [facility] Last Admin: 04/16/18 23:57 Dose: 40 mg Sodium Chloride (Ns Inj) 2 ml IV.FLUSH BID [facility] Last Admin: 04/17/18 09:26 Dose: 2 ml Sodium Chloride (Ns Inj) 2 ml IV.FLUSH UNSCH PRN PRN Reason: FLUSH AFTER USING IV ACCESS Physical Exam Vital signs: Vital Signs 04/16/18 10:31 04/16/18 10:35 04/16/18 10:45 Temperature 99.2 F Pulse Rate 118 H 110 H Respiratory Rate 26 H Blood Pressure 172/95 H Pulse Oximetry 88 L 93 L 04/16/18 11:32 04/16/18 11:34 04/16/18 11:36 Temperature Pulse Rate 118 H Respiratory Rate 22 Blood Pressure 179/78 H Pulse Oximetry 95 95 98 04/16/18 12:34 04/16/18 12:52 04/16/18 13:07 Temperature Pulse Rate 113 H Respiratory Rate 22 Blood Pressure 176/92 H 174/71 H 178/81 H Pulse Oximetry 97 04/16/18 14:47 04/16/18 14:48 04/16/18 16:17 Temperature Pulse Rate 110 H 108 H Respiratory Rate 20 22 Blood Pressure 167/79 H 169/93 H Pulse Oximetry 96 96 97 04/16/18 17:29 04/16/18 18:15 04/16/18 20:00 Temperature 97 F L Pulse Rate 112 H 118 H 117 H Respiratory Rate 20 18 18 Blood Pressure 172/92 H 140/90 173/105 H Pulse Oximetry 96 97 95 04/16/18 21:00 04/16/18 22:00 04/16/18 23:00 Temperature Pulse Rate 114 H 116 H 110 H Respiratory Rate Blood Pressure Pulse Oximetry 04/17/18 00:00 04/17/18 01:00 04/17/18 02:00 Temperature 99.1 F Pulse Rate 109 H 102 H 106 H Respiratory Rate 20 Blood Pressure 135/67 Pulse Oximetry 96 04/17/18 03:00 04/17/18 04:00 04/17/18 05:00 Temperature 99.5 F Pulse Rate 102 H 95 H 92 H Respiratory Rate 20 Blood Pressure 154/88 H Pulse Oximetry 96 04/17/18 06:00 04/17/18 07:00 04/17/18 07:52 Temperature Pulse Rate 98 H 92 H Respiratory Rate Blood Pressure Pulse Oximetry 96 04/17/18 08:00 04/17/18 09:00 04/17/18 09:27 Temperature 99.1 F Pulse Rate 100 H 104 H 97 H Respiratory Rate 24 Blood Pressure 140/85 127/80 Pulse Oximetry 96 98 Intake & Output 04/16/18 04/17/18 04/17/18 18:59 06:59 18:59 Intake Total 160 / 160 240 / 240 Output Total 850 / 850 375 / 375 Balance -690 / -690 -135 / -135 Weight 126 kg 106.5 kg Intake: IV 160 / 160 Heparin/D5W 25,000 U/250 mL 25, 10 / 10 000 unit In 250 ml @ Per Protocol IV.CONT TITRATE PRN Rx #:[id number] Levaquin 750 mg Premix Inj 150 150 / 150 ML @ 100 mls/hr IV.SIG ONCE ONE Rx#:[id number] Oral 240 / 240 Output: Urine 850 / 850 375 / 375 Other: Date of Last Bowel Movement 04/15/18 - Constitutional mild distress - Routine HEENT Exam Head: Present: normocephalic Eye: Present: PERRL ENT: Present: mucous membranes moist - Routine Neck Exam Present: full ROM - Routine Respiratory Exam Present: decreased breath sounds, distant breath sounds Comments: Patient on a 100% NRB at this time. - Routine Cardiovascular Exam Present: S1, S2. Absent: murmur, gallop, rubs - Routine Abdominal Exam Present: normoactive bowel sounds - Routine Extremities Exam Present: edema, full ROM, pulses intact, normal capillary refill. Absent: cyanosis, clubbing - Routine Skin Exam Present: intact - Routine Neurological Exam Present: oriented X3 - Detailed Neurological Exam: Coma Scale Eye Opening: Spontaneous Verbal Response: Oriented Motor Response: Obey commands Dada Coma Scale Total: 15 - Routine Psychiatric Exam Present: normal affect Results 04/17/18 05:24 04/17/18 05:24 Cardiac Enzymes 04/16/18 04/16/18 04/16/18 Range/Units 10:50 10:50 14:40 AST 51 H (15-37) U/L Troponin I 1.05 H* 3.16 H* (0.02-0.05) ng/mL B-Natriuretic Peptide 1016 H (0-100) pg/mL 04/16/18 04/17/18 Range/Units 19:47 05:24 AST 72 H (15-37) U/L Troponin I 6.82 H* (0.02-0.05) ng/mL B-Natriuretic Peptide (0-100) pg/mL Coagulation 04/16/18 04/16/18 04/16/18 Range/Units 10:50 10:50 10:50 PT 11.4 Cancelled (9.8-11.6) sec APTT 28.7 (23.4-31.7) sec B-Natriuretic Peptide 1016 H (0-100) pg/mL 04/16/18 04/17/18 Range/Units 20:05 05:24 PT (9.8-11.6) sec APTT 29.4 31.0 (23.4-31.7) sec B-Natriuretic Peptide (0-100) pg/mL Lipids 04/16/18 Range/Units 19:47 Triglycerides 108 (42-150) mg/dL Cholesterol 199 (120-200) mg/dL HDL Cholesterol 49.4 (40.0-60.0) mg/dL Cholesterol/HDL Ratio 4.02 Ratio CBC 04/16/18 04/17/18 Range/Units 10:50 05:24 WBC 17.3 H 15.5 H (4.0-11.0) th/mm3 RBC 5.46 4.80 (4.50-5.90) mil/mm3 Hgb 15.8 14.6 (13.0-17.0) gm/dL Hct 47.3 43.1 (39.0-51.0) % Plt Count 344 257 (150-450) th/mm3 Neut # (Auto) 15.2 H 12.4 H (1.8-7.7) th/mm3 Lymph # (Auto) 1.0 1.4 (1.0-4.8) th/mm3 [place]cock # (Auto) 1.0 H 1.7 H (0.0-0.9) th/mm3 Eos # (Auto) 0.0 0.0 (0.0-0.4) th/mm3 Baso # (Auto) 0.1 0.1 (0.0-0.2) th/mm3 Comprehensive Metabolic Panel 04/16/18 04/17/18 Range/Units 10:50 05:24 Sodium 132 L 132 L (136-145) meq/L Potassium 3.5 3.4 L (3.5-5.1) meq/L Chloride 96 L 94 L (98-107) meq/L Carbon Dioxide 24.8 26.6 (21.0-32.0) meq/L BUN 18 29 H (7-18) mg/dL Creatinine 1.00 1.30 (0.60-1.30) mg/dL Calcium 8.2 L 8.3 L (8.5-10.1) mg/dL AST 51 H 72 H (15-37) U/L ALT 74 60 (12-78) U/L Alkaline Phosphatase 201 H 163 H (45-117) U/L Total Protein 8.4 H 7.7 D (6.4-8.2) g/dL Albumin 3.1 L 2.9 L (3.4-5.0) g/dL Intake and Output 04/16/18 04/17/18 04/17/18 22:59 06:59 14:59 Intake Total 240 / 240 Output Total 400 / 400 375 / 375 Balance -390 / -390 -135 / -135 Intake: IV Heparin/D5W 25,000 U/250 mL 25, 10 / 10 000 unit In 250 ml @ Per Protocol IV.CONT TITRATE PRN Rx #:[id number] Oral 240 / 240 Output: Urine 400 / 400 375 / 375 Other: Date of Last Bowel Movement 04/15/18 Weight 106.5 kg - Imaging and Cardiology Imaging: Impressions Chest X-Ray 04/16/18 10:44 CONCLUSION: Masslike opacity right hilum Cardiomegaly with interstitial vascular congestion. Assessment and Plan - Assessment (1) Heart failure of unknown etiology Code(s): I50.9 - Heart failure, unspecified Status: Acute (2) Acute respiratory distress Code(s): R06.03 - Acute respiratory distress Status: Acute (3) Hypoxemia Code(s): R09.02 - Hypoxemia Status: Acute (4) D-dimer, elevated Code(s): R79.89 - Other specified abnormal findings of blood chemistry Status : Acute - Plan We will continue with CHF management including aggressive diuresis. 2D echo to evaluate LV function. Patient is fluid overloaded, troponin levels are trending up, we will continue aggressive diuresis until patient is stable from a respiratory standpoint. He will need evaluation for ischemic heart disease once stable. We will consult pulmonology to evaluate respiratory status. Continue to monitor patient on telemetry. We will continue to follow the patient during his hospitalization The patient was seen and evaluated by Dr. Rushing who participated in care, management and decision making. - Attending Attestation Patient seen and examined. I reviewed and agree with the evaluation and plan as presented. Continue therapy for CHF including diuresis. Will schedule adenosine myocardial perfusion study if possible tomorrow.
--- NOTE | 2018-04-17 13:36 | ECHRPT ---
Indication: HEART FAILURE CONCLUSIONS Severely dilated left ventricle. Mild concentric left ventricular hypertrophy. The left ventricular systolic function is severely reduced with an estimated ejection fraction in th e range of 30-35%. The left atrial size is xjcp-ty-wugiynqzok dilated. Uxkvz-fe-vwni mitral valve regurgitation. The estimated pulmonary arterial pressure is 19 mmHg. BP: / HR: Rhythm: MEASUREMENTS (Male / Female) Normal Values Technical Quality:Technically difficult study 2D ECHO LV Diastolic Diameter PLAX 6.4 cm 4.2 - 5.9 / 3.9 - 5.3 cm LV Systolic Diameter PLAX 5.8 cm IVS Diastolic Thickness 1.3 cm 0.6 - 1.0 / 0.6 - 0.9 cm LVPW Diastolic Thickness 1.3 cm 0.6 - 1.0 / 0.6 - 0.9 cm LV Relative Wall Thickness 0.4 RV Internal Dim ED PLAX 3.3 cm LVOT Diameter 2.1 cm Aortic Root Diameter 2.7 cm LA Systolic Diameter LX 4.7 cm 3.0 - 4.0 / 2.7 - 3.8 cm LV Ejection Fraction MOD 4C 33.5 % LV Ejection Fraction 4C AL 33.2 % M-MODE Aortic Root Diameter MM 3.4 cm LA Systolic Diameter MM 6.1 cm LA Ao Ratio MM 1.8 AV Cusp Separation MM 2.0 cm DOPPLER AV Peak Velocity 159.0 cm/s AV Peak Gradient 10.1 mmHg LVOT Peak Velocity 86.4 cm/s LVOT Peak Gradient 3.0 mmHg AV Area Cont Eq pk 1.9 cm Mitral E Point Velocity 129.0 cm/s Mitral A Point Velocity 46.9 cm/s Mitral E to A Ratio 2.8 LV E' Lateral Velocity 5.2 cm/s Mitral E to LV E' Lateral Ratio 24.6 LV E' Septal Velocity 6.5 cm/s Mitral E to LV E' Septal Ratio 19.8 TR Peak Velocity 153.0 cm/s TR Peak Gradient 9.4 mmHg Right Atrial Pressure 10.0 mmHg Pulmonary Artery Systolic Pressu 19.4 mmHg Right Ventricular Systolic Press 19.4 mmHg PV Peak Velocity 103.0 cm/s PV Peak Gradient 4.2 mmHg FINDINGS LEFT VENTRICLE Severely dilated left ventricle. Mild concentric left ventricular hypertrophy. The left ventricular systolic function is severely reduced with an estimated ejection fraction in th e range of 30-35%. RIGHT VENTRICLE Normal right ventricular size and systolic function. LEFT ATRIUM The left atrial size is lvmu-il-sndcugashs dilated. RIGHT ATRIUM The right atrial size is normal. ATRIAL SEPTUM Normal atrial septal thickness without atrial level shunting by limited color doppler interrogation. AORTA The aortic root and proximal ascending aorta are normal in size on limited imaging. MITRAL VALVE Vsshu-pr-rhon mitral valve regurgitation. AORTIC VALVE Trileaflet aortic valve. No aortic valve stenosis or regurgitation. TRICUSPID VALVE The estimated pulmonary arterial pressure is 19 mmHg. PULMONARY VALVE No pulmonary valve regurgitation or stenosis. VESSELS The inferior vena cava is normal in size. PERICARDIUM No pericardial effusion. Martin Cody MD, FACC (Electronically Signed) Final Date:17 April 2018 13:35
[2018-04-17] MEDS: Heparin Drip 25,000 UNIT/250 ML BAG IV.CONT PRN (14:39)
--- NOTE | 2018-04-17 15:16 | P.PNIM ---
Subjective Interval history: Follow-up heart failure. States he is feeling better with improved shortness of breath has not been out of bed. Oxygen saturation 91% on 6 L. Patient verbalizes understanding that he needs to be compliant with his medical therapy. Physical Exam Vital signs: Last Vital Signs Temp 98.7 F 04/17/18 11:00 Pulse 87 04/17/18 11:00 Resp 22 04/17/18 11:00 BP 126/71 04/17/18 14:00 Pulse Ox 93 L 04/17/18 11:00 Intake & Output 04/15/18 04/16/18 04/17/18 04/18/18 06:59 06:59 06:59 06:59 Intake Total 400 / 400 250 / 250 Output Total 1225 / 1225 Balance -825 / -825 250 / 250 Weight 106.5 kg Narrative: GENERAL: Appears older than stated age, no acute distress. SKIN: Focused skin assessment warm/dry. CARDIOVASCULAR: Regular rate and rhythm. No murmur appreciated. RESPIRATORY: Lung laguna are equal with occasional rhonchi GASTROINTESTINAL: Abdomen soft, non-tender, nondistended. MUSCULOSKELETAL: No obvious deformities. No clubbing. No cyanosis. 1+ edema. NEUROLOGICAL: Awake and alert. No obvious cranial nerve deficits. Motor grossly within normal limits. Normal speech. PSYCHIATRIC: Appropriate mood and affect; insight and judgment normal. Results Labs CBC & Chem 7: 04/17/18 05:24 04/17/18 05:24 Labs: Microbiology 04/16/18 12:05 Blood - Peripheral Aerobic Blood Culture - Preliminary No growth in 1 day 04/16/18 12:05 Blood - Peripheral Anaerobic Blood Culture - Preliminary No growth in 1 day 04/16/18 12:00 Blood - Peripheral Aerobic Blood Culture - Preliminary No growth in 1 day 04/16/18 12:00 Blood - Peripheral Anaerobic Blood Culture - Preliminary No growth in 1 day 04/16/18 11:00 Nasal Wash Influenza Types A,B Antigen - Final Negative for FLU A and B antigen Infection due to influenza A or B cannot be ruled out since the antigen present in the sample may be below the detection limit of the test. Assessment and Plan (1) Heart failure of unknown etiology: Code(s): I50.9 - Heart failure, unspecified Status: Acute (2) Acute respiratory distress: Code(s): R06.03 - Acute respiratory distress Status: Acute (3) Hypoxemia: Code(s): R09.02 - Hypoxemia Status: Acute (4) D-dimer, elevated: Code(s): R79.89 - Other specified abnormal findings of blood chemistry Status: Acute Plan Acute on chronic systolic CHF/NSTEMI. EF 30% with LVH. Clinically improving on diuresis Patient presents with shortness of breath and lower extremity edema. BNP elevated at 1016. Chest x-ray with vascular congestion. The patient ran out of several medications including his diuretic. Troponin is elevated at 3.16. EKG with sinus rhythm, frequent PVCs and intraventricular conduction delay. -CHF education, I/O and monitor weight -Telemetry. -Lasix 40 mg IV BID. Monitor electrolytes -Continue heparin drip. -LDL elevated on pravastatin (patient has not been compliant) -Blood pressure control. -will need stress test or cardiac catheterization per cardiology. Continue aspirin, beta-alvarez, lisinopril and nitrates. Consider LifeVest. Repeat echo in 3 months on optimal management, may need ICD Accelerated hypertension. Improved Blood pressure poorly controlled at this time. -Resume home medications. -Hydralazine or Vasotec IV as needed. -Nitropaste. Lung mass Chest x-ray with masslike opacity at the right hilum. -We will repeat chest x-ray or pursue CT of the chest once respiratory and cardiac status have improved. Hyponatremia Appears hypervolemic. -diurese and monitor. Noncompliance The pt ran out of many medications weeks ago and has not bothered to get them refilled. -compliance recommended. -resume home meds. A1c 8.8. New onset diabetes. Monitor fingersticks with sliding scale coverage. Diabetic education. Elevated AST secondary to heart failure. Patient also on started. Will monitor PPx: Heparin gtt Progress Note: Quality VTE Deep Vein Thrombosis/Pulmonary Embolism Present on Admission: No
[2018-04-17] MEDS ORDERED: Dextrose 50% in Water 50 ML Vial IV.PUSH PRN (15:20)
[2018-04-17] MEDS: Insulin NovoLOG Aspart Correctional Sugar Inj SQ SCH ×2 (17:31→22:01)
[2018-04-17 18:25] LABS: ABG PCO2 38 mmHg (38-42); ABG PO2 69 mmHG (61-120)
--- NOTE | 2018-04-17 19:46 | MB ---
cc: Inder Sage MD DATE: 04/17/2018 REASON FOR CONSULTATION: Respiratory distress and hypoxia. HISTORY OF PRESENT ILLNESS: This is a 48-year-old white male with a history of cardiomyopathy and congestive heart failure who has been admitted with progressive shortness of breath, increasing leg edema, and orthopnea. The patient apparently has been having some leg swelling and was having some nocturnal dyspnea and became quite weak over the past few days and thus was brought to the hospital for evaluation. He has been on diuretics in the past and has had previous admissions for heart failure. Upon arrival, a chest x-ray showed evidence of vascular congestion as well as a mass-like infiltrate in the right perihilar region. He has a cough, is bringing up thick whitish-yellow mucus. Denies hemoptysis and denies leg or calf muscle pain. He was started on IV heparin and diuretics, including Lasix 40 mg b.i.d. His urine output has improved and his breathing is easier now, but still on O2 at 5 liters nasal cannula. Complains of some upper chest pain, but no fevers or chills and denies any nausea, vomiting or aspiration. PAST MEDICAL HISTORY: Includes systolic heart failure, chronic. History of anxiety disorder, history of hypertension, and a history of bronchitis. Denies any prior history of asthma or chronic lung disease. PAST SURGICAL HISTORY: No significant surgery. HABITS: The patient never smoked. No alcohol use. 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 ALLERGIES: NO DRUG ALLERGIES LISTED. MEDICATIONS: 1. Amlodipine 10 mg a day. 2. Aspirin 1 daily. 3. Lexapro 20 mg a day. 4. Lasix injection 40 mg b.i.d. 5. Apresoline 50 mg b.i.d. 6. Heparin IV. 7. Lisinopril 20 mg a day. 8. Isordil 60 mg daily. 9. Metoprolol 12.5 mg b.i.d. FAMILY HISTORY: Essentially noncontributory. REVIEW OF SYSTEMS: The patient is overweight. He has wheezing, chest congestion, cough with expectoration, and denies GI symptoms or urinary symptoms. No skin lesions. He has some depression and anxiety. The other system review as in presenting complaint. PHYSICAL EXAMINATION: GENERAL: This is a moderately overweight, middle-aged white male who is alert. Face is flushed. He has 2+ leg edema. VITAL SIGNS: The blood pressure is 110/60, pulse is 90, respirations 22, temperature 98.2. HEENT: Head is normocephalic. Pupils are reactive and equal. Tongue is moist. Throat is mildly injected. Nasal mucosa edematous. NECK: No bruits. Mild venous distention at 45 degrees. Trachea midline. CHEST: Distant breath sounds. There are occasional crackles over the right lower chest and wheezes bilaterally, prolonged expirations. HEART: Sounds are irregular, S1, S2, with no definite murmur or S3. ABDOMEN: Soft, obese, with no organomegaly or tenderness. The bowel sounds are active. EXTREMITIES: 2+ leg edema. No calf tenderness. Peripheral pulses are well felt. NEUROLOGIC: Reflexes 1+ with no gross motor deficits, and the cranial nerves grossly intact. SKIN: Cool and dry. IMPRESSION: 1. Cardiomyopathy with chronic systolic heart failure. 2. Right hilar density, probable pneumonia versus lung mass. 3. History of hypertension. 4. Rule out pulmonary embolism. PLAN: The patient has been started on oxygen at 4 liters nasal cannula. We will continue the heparin drip and we will get a CT scan of the chest to evaluate the right hilum. The patient is already on anticoagulation. We could check his lower extremities for any venous clots. We will also get a pulmonary function study to evaluate him for any obstructive airway disease and start him on DuoNeb solution with a nebulizer q.i.d. He may have a pneumonia in the right perihilar region and thus he was started on Rocephin 2 g IV daily and a sputum sent for culture and Gram stain. I will review and follow the case with you, Dr. Judd. Thank you for this consultation. Inder Sage MD VJD/dionisio , 05:59 PM , 06:13 PM
[2018-04-17 21:25] LABS: Calcium 7.9 mg/dL (8.5-10.1); Carbon Dioxide 27.3 meq/L (21.0-32.0); Potassium 3.6 meq/L (3.5-5.1)
--- NOTE | 2018-04-17 22:50 | ECG ---
Date Performed: 04/16/2018 Time Performed: 15:50:08 PTAGE: 48 years EKG: SINUS TACHYCARDIA WITH FREQUENT VENTRICULAR PREMATURE COMPLEXES LEFT ATRIAL ENLARGEMENT MOD ERATE INTRAVENTRICULAR CONDUCTION DELAY ABNORMAL ECG PREVIOUS TRACING : 04/16/2018 13.28 Compared to previous tracing, VENTRICULAR BIGEMINY HAS RESO LVED DOCTOR: Hermann Branch Interpretating Date/Time 04/17/2018 22:49:20
--- NOTE | 2018-04-17 23:07 | ECG ---
Date Performed: 04/16/2018 Time Performed: 13:28:12 PTAGE: 48 years EKG: Sinus rhythm WITH FREQUENT VENTRICULAR PREMATURE COMPLEXES IN A BIGEMINAL PATTERN LEFT ATRIAL ENLARGEMENT ABNORMA L ECG PREVIOUS TRACING : 04/16/2018 10.25 Since the previous tracing, no significant change noted DOCTOR: Hermann Branch Interpretating Date/Time 04/17/2018 23:06:18
[2018-04-18] MEDS: Heparin Drip 25,000 UNIT/250 ML BAG IV.CONT PRN (05:58)
[2018-04-18 06:34] LABS: Hematocrit 43.2 % (39.0-51.0); Hemoglobin 14.3 gm/dL (13.0-17.0); Mean Corpuscular HGB Conc 33.1 % (32.0-36.0); Mean Corpuscular Hemoglobin 29.6 pg (27.0-34.0); Mean Corpuscular Volume 89.6 fL (80.0-100.0); Mean Platelet Volume 9.2 fL (7.0-11.0); Platelet Count 252 th/mm3 (150-450); Red Blood Count 4.82 mil/mm3 (4.50-5.90); Red Cell Distribution Width 13.6 % (11.6-17.2); White Blood Count 11.6 th/mm3 (4.0-11.0)
[2018-04-18 07:10] LABS: Alanine Aminotransferase 55 U/L (12-78); Albumin 2.6 g/dL (3.4-5.0); Anion Gap 7 meq/L (5-15); Aspartate Aminotransferase 53 U/L (15-37); Blood Urea Nitrogen 35 mg/dL (7-18); Calcium 8.1 mg/dL (8.5-10.1); Carbon Dioxide 30.2 meq/L (21.0-32.0); Chloride 97 meq/L (98-107); Glomerular Filtration Rate 66 mL/min (>89); Glucose,Random 165 mg/dL (74-106); Magnesium 2.8 mg/dL (1.5-2.5); Potassium 3.4 meq/L (3.5-5.1); Sodium 134 meq/L (136-145)
[2018-04-18 07:12] LABS: Alkaline Phosphatase 150 U/L (45-117); Total Protein 7.4 g/dL (6.4-8.2)
[2018-04-18] MEDS: Insulin NovoLOG Aspart Correctional Sugar Inj SQ SCH ×4 (08:37→21:06)
[2018-04-18] MEDS: Metoprolol Tartrate 25 MG Tablet PO SCH ×2 (09:14→21:03)
[2018-04-18] MEDS: Lisinopril 20 MG Tablet PO SCH (09:15)
[2018-04-18] MEDS: Isosorbide Mononitrate 60 MG ER 24HR Tablet (Imdur) PO SCH (09:15)
--- NOTE | 2018-04-18 13:09 | P.PNIM ---
Subjective Interval history: Follow-up heart failure. Improving shortness of breath still on 6 L. T-max of 102 started on Rocephin yesterday pending chest CT and stress test Physical Exam Vital signs: Last Vital Signs Temp 98.6 F 04/18/18 11:13 Pulse 93 H 04/18/18 11:13 Resp 20 04/18/18 11:13 BP 125/72 04/18/18 11:13 Pulse Ox 94 L 04/18/18 11:13 Intake & Output 04/16/18 04/17/18 04/18/18 04/19/18 06:59 06:59 06:59 06:59 Intake Total 400 / 400 2400 / 2400 Output Total 1225 / 1225 1940 / 1940 Balance -825 / -825 460 / 460 Weight 106.5 kg 106.3 kg Narrative: GENERAL: Appears older than stated age, no acute distress. SKIN: Focused skin assessment warm/dry. CARDIOVASCULAR: Regular rate and rhythm. No murmur appreciated. RESPIRATORY: Lung [place] are equal with occasional rhonchi GASTROINTESTINAL: Abdomen soft, non-tender, nondistended. MUSCULOSKELETAL: No obvious deformities. No clubbing. No cyanosis. 1+ edema. NEUROLOGICAL: Awake and alert. No obvious cranial nerve deficits. Motor grossly within normal limits. Normal speech. Results Labs CBC & Chem 7: 04/18/18 05:24 04/18/18 05:24 Labs: Microbiology 04/16/18 12:05 Blood - Peripheral Aerobic Blood Culture - Preliminary No growth in 2 days 04/16/18 12:05 Blood - Peripheral Anaerobic Blood Culture - Preliminary No growth in 2 days 04/16/18 12:00 Blood - Peripheral Aerobic Blood Culture - Preliminary No growth in 2 days 04/16/18 12:00 Blood - Peripheral Anaerobic Blood Culture - Preliminary No growth in 2 days 04/17/18 18:00 Sputum - Expectorated Sputum Gram Stain - Final Imaging Imaging: ITS Impressions Chest X-Ray 04/16/18 10:44 CONCLUSION: Masslike opacity right hilum Cardiomegaly with interstitial vascular congestion. Procedures Procedures: none Assessment and Plan (1) Heart failure of unknown etiology: Code(s): I50.9 - Heart failure, unspecified Status: Acute (2) Acute respiratory distress: Code(s): R06.03 - Acute respiratory distress Status: Acute (3) Hypoxemia: Code(s): R09.02 - Hypoxemia Status: Acute (4) D-dimer, elevated: Code(s): R79.89 - Other specified abnormal findings of blood chemistry Status: Acute Plan Acute on chronic systolic CHF/NSTEMI. EF 30% with LVH. Clinically improving on diuresis Patient presents with shortness of breath and lower extremity edema. BNP elevated at 1016. Chest x-ray with vascular congestion. The patient ran out of several medications including his diuretic. Troponin is elevated at 3.16. EKG with sinus rhythm, frequent PVCs and intraventricular conduction delay. -CHF education, I/O and monitor weight -Telemetry. -Lasix 40 mg IV BID. Monitor electrolytes -Continue heparin drip. -LDL elevated on pravastatin (patient has not been compliant) -Blood pressure control. -Continue aspirin, beta-alvarez, lisinopril and nitrates. Consider LifeVest. Repeat echo in 3 months on optimal management, may need ICD. For stress test today Accelerated hypertension. Improved Blood pressure poorly controlled at this time. -Resume home medications. -Hydralazine or Vasotec IV as needed. -Nitropaste. Lung mass Hypoxia. Wean oxygen to keep saturation at least 92% Chest x-ray with masslike opacity at the right hilum. -Started on Rocephin by pulmonary follow-up chest CT Fever. Blood cultures negative to date monitor Hyponatremia Appears hypervolemic. -diurese and monitor. Noncompliance The pt ran out of many medications weeks ago and has not bothered to get them refilled. -compliance recommended. -resume home meds. A1c 8.8. New onset diabetes. Monitor fingersticks with sliding scale coverage. Diabetic education. Consider Jardiance Elevated AST secondary to heart failure. Patient also on statin. Will monitor PPx: Heparin gtt Not ready for discharge. May need home oxygen. PT consulted-home health care versus snf Progress Note: Quality VTE Deep Vein Thrombosis/Pulmonary Embolism Present on Admission: No
[2018-04-18] MEDS ORDERED: Regadenoson Inj 0.4 MG/5 ML Syringe IV.PUSH ONE (14:00)
--- NOTE | 2018-04-18 14:34 | P.PNCA ---
Subjective Interval history: Still SOB, but improving, no CP, less edema, orthopnea improving Medications and Allergies Active Medications: Active Medications Acetaminophen (Tylenol) 650 mg PO Q4H PRN PRN Reason: HEADACHE OR TEMP > 101 F Last Admin: 04/18/18 00:40 Dose: 650 mg Albuterol (Duoneb Neb (Radha)) 1 ampul NEB Q6HR NEB [facility] Last Admin: 04/18/18 08:16 Dose: 1 ampul Amlodipine Besylate (Norvasc) 10 mg PO DAILY [facility] Last Admin: 04/17/18 14:00 Dose: Not Given Aspirin (Ecotrin) 325 mg PO DAILY [facility] Last Admin: 04/18/18 09:15 Dose: 325 mg Dextrose (D50w Vial) 50 ml IV.PUSH UNSCH PRN PRN Reason: PER HYPOGLYCEMIA PROTOCOL Enalaprilat (Vasotec Inj) 1.25 mg IV.PUSH Q6H PRN PRN Reason: SEE LABEL COMMENTS Escitalopram Oxalate (Lexapro) 20 mg PO DAILY [facility] Last Admin: 04/18/18 09:16 Dose: 20 mg Furosemide (Lasix Inj) 80 mg IV.PUSH BID@0900,1800 [facility] Last Admin: 04/18/18 09:14 Dose: 80 mg Glucagon (Glucagon Inj) 1 mg OTHER UNSCH PRN PRN Reason: for Hypoglycemia Protocol Hydralazine HCl (Apresoline) 50 mg PO BID [facility] Last Admin: 04/17/18 22:01 Dose: 50 mg Hydralazine HCl (Apresoline Inj) 10 mg IV.PUSH Q6H PRN PRN Reason: SEE LABEL COMMENTS Heparin Sodium/Dextrose (Heparin/D5w 25,000 U/250 Ml) 25,000 unit in 250 mls @ 0 mls/hr IV.CONT TITRATE PRN; Protocol PRN Reason: Per Protocol Last Titration: 04/18/18 10:29 Dose: 1,500 units/hr, 15 mls/hr Ceftriaxone Sodium 2,000 mg/ (Sodium Chloride) 100 mls @ 200 mls/hr IV.SIG Q24H [facility] Last Infusion: 04/17/18 22:45 Dose: Infused Insulin Aspart (Novolog Insulin Correctional Sugar Inj) 0 unit SQ ACHS [facility]; Protocol Last Admin: 04/18/18 12:50 Dose: Not Given Isosorbide Mononitrate (Imdur) 60 mg PO DAILY [facility] Last Admin: 04/18/18 09:15 Dose: 60 mg Lisinopril (Prinivil) 20 mg PO DAILY [facility] Last Admin: 04/18/18 09:15 Dose: 20 mg Metoprolol Tartrate (Lopressor) 12.5 mg PO BID [facility] Last Admin: 04/18/18 09:14 Dose: 12.5 mg Nitroglycerin (Nitrostat Sl) 0.4 mg SL Q5M PRN PRN Reason: CHEST PAIN Nitroglycerin (Nitro-Bid 2% Oint) 1 inch TOPICAL Q6HR [facility] Last Admin: 04/18/18 05:54 Dose: 1 inch Potassium Chloride (Klor-Con 10) 30 meq PO BID [facility] Pravastatin Sodium (Pravachol) 40 mg PO HS [facility] Last Admin: 04/17/18 22:00 Dose: 40 mg Sodium Chloride (Ns Inj) 2 ml IV.FLUSH BID [facility] Last Admin: 04/18/18 10:31 Dose: Not Given Sodium Chloride (Ns Inj) 2 ml IV.FLUSH UNSCH PRN PRN Reason: FLUSH AFTER USING IV ACCESS Allergies Allergy/AdvReac Type Severity Reaction Status Date / Time No Known Allergies Allergy Verified 04/16/18 16:36 Home Medications Medication Instructions Recorded Confirmed Type amlodipine 10 mg PO DAILY 04/16/18 04/16/18 History bumetanide 2 mg PO DAILY 04/16/18 04/16/18 History escitalopram oxalate [Lexapro] 20 mg PO DAILY 04/16/18 04/16/18 History hydralazine 50 mg PO BID 04/16/18 04/16/18 History isosorbide mononitrate 60 mg PO DAILY 04/16/18 04/16/18 History lisinopril 20 mg PO DAILY 04/16/18 04/16/18 History pravastatin 40 mg PO HS 04/16/18 04/16/18 History Physical Exam Vital signs: Vital Signs 04/17/18 15:00 04/17/18 15:40 04/17/18 16:00 Temperature 98.0 F Pulse Rate 98 H 90 88 Respiratory Rate 22 Blood Pressure 108/66 Pulse Oximetry 94 L 04/17/18 17:00 04/17/18 17:28 04/17/18 18:00 Temperature Pulse Rate 96 H 96 H 98 H Respiratory Rate 20 Blood Pressure 136/59 L Pulse Oximetry 96 04/17/18 19:00 04/17/18 20:00 04/17/18 21:00 Temperature 97.5 F L Pulse Rate 53 L 53 L 104 H Respiratory Rate 20 Blood Pressure 123/61 Pulse Oximetry 90 L 90 L 04/17/18 21:48 04/17/18 22:00 04/17/18 23:00 Temperature Pulse Rate 53 L 108 H 96 H Respiratory Rate 20 Blood Pressure Pulse Oximetry 90 L 04/18/18 00:00 04/18/18 01:00 04/18/18 02:00 Temperature 102.4 F H Pulse Rate 96 H 96 H 96 H Respiratory Rate 22 Blood Pressure 132/72 Pulse Oximetry 93 L 04/18/18 03:00 04/18/18 04:00 04/18/18 04:41 Temperature 98.2 F Pulse Rate 76 81 83 Respiratory Rate 20 21 Blood Pressure 125/73 Pulse Oximetry 95 04/18/18 05:00 04/18/18 06:00 04/18/18 07:00 Temperature Pulse Rate 74 74 88 Respiratory Rate Blood Pressure Pulse Oximetry 04/18/18 08:00 04/18/18 08:26 04/18/18 09:00 Temperature 98.9 F Pulse Rate 96 H 102 H 102 H Respiratory Rate 20 18 Blood Pressure 145/95 H Pulse Oximetry 92 L 93 L 04/18/18 09:10 04/18/18 10:00 04/18/18 11:13 Temperature 98.6 F Pulse Rate 90 93 H Respiratory Rate 20 Blood Pressure 125/74 125/72 Pulse Oximetry 94 L Intake & Output 04/17/18 04/18/18 04/18/18 18:59 06:59 18:59 Intake Total 1550 / 1550 850 / 850 Output Total 1290 / 1290 650 / 650 Balance 260 / 260 200 / 200 Weight 234 lb 5.622 oz Intake: IV 250 / 250 350 / 350 Heparin/D5W 25,000 U/250 mL 25, 250 / 250 250 / 250 000 unit In 250 ml @ Per Protocol IV.CONT TITRATE PRN Rx #:[id number] Rocephin Inj 2,000 MG In NS Inj 100 / 100 100 ML @ 200 mls/hr IV.SIG Q24H RADHA Rx#:[id number] Oral 1300 / 1300 500 / 500 Output: Urine 1290 / 1290 650 / 650 Other: Date of Last Bowel Movement 04/17/18 04/17/18 04/17/18 Narrative: GENERAL: In NAD. SKIN: Skin warm/dry. CARDIOVASCULAR: Regular rate and rhythm. No murmur appreciated. RESPIRATORY: Lung w few rhonchi. GASTROINTESTINAL: Abdomen soft, non-tender, nondistended. MUSCULOSKELETAL: No cyanosis. 1+ edema. NEUROLOGICAL: Grossly nonfocal. Results 04/18/18 05:24 04/18/18 05:24 Cardiac Enzymes 04/16/18 04/16/18 04/17/18 Range/Units 14:40 19:47 05:24 AST 72 H (15-37) U/L Troponin I 3.16 H* 6.82 H* (0.02-0.05) ng/mL 04/18/18 Range/Units 05:24 AST 53 H (15-37) U/L Troponin I (0.02-0.05) ng/mL Coagulation 04/16/18 04/16/18 04/17/18 Range/Units 10:50 20:05 05:24 PT Cancelled APTT 28.7 29.4 31.0 (23.4-31.7) sec 04/17/18 04/17/18 04/18/18 Range/Units 13:58 20:44 08:46 PT APTT 31.7 25.0 D 31.1 D (23.4-31.7) sec Lipids 04/16/18 Range/Units 19:47 Triglycerides 108 (42-150) mg/dL Cholesterol 199 (120-200) mg/dL HDL Cholesterol 49.4 (40.0-60.0) mg/dL Cholesterol/HDL Ratio 4.02 Ratio CBC 04/17/18 04/18/18 Range/Units 05:24 05:24 WBC 15.5 H 11.6 H (4.0-11.0) th/mm3 RBC 4.80 4.82 (4.50-5.90) mil/mm3 Hgb 14.6 14.3 (13.0-17.0) gm/dL Hct 43.1 43.2 (39.0-51.0) % Plt Count 257 252 (150-450) th/mm3 Neut # (Auto) 12.4 H (1.8-7.7) th/mm3 Lymph # (Auto) 1.4 (1.0-4.8) th/mm3 [place] # (Auto) 1.7 H (0.0-0.9) th/mm3 Eos # (Auto) 0.0 (0.0-0.4) th/mm3 Baso # (Auto) 0.1 (0.0-0.2) th/mm3 Comprehensive Metabolic Panel 04/17/18 04/17/18 04/18/18 Range/Units 05:24 20:44 05:24 Sodium 132 L 132 L 134 L (136-145) meq/L Potassium 3.4 L 3.6 3.4 L (3.5-5.1) meq/L Chloride 94 L 96 L 97 L (98-107) meq/L Carbon Dioxide 26.6 27.3 30.2 (21.0-32.0) meq/L BUN 29 H 34 H 35 H (7-18) mg/dL Creatinine 1.30 1.25 1.18 (0.60-1.30) mg/dL Calcium 8.3 L 7.9 L 8.1 L (8.5-10.1) mg/dL AST 72 H 53 H (15-37) U/L ALT 60 55 (12-78) U/L Alkaline Phosphatase 163 H 150 H (45-117) U/L Total Protein 7.7 D 7.4 (6.4-8.2) g/dL Albumin 2.9 L 2.6 L (3.4-5.0) g/dL Intake and Output 04/17/18 04/18/18 04/18/18 22:59 06:59 14:59 Intake Total 1400 / 1400 750 / 750 Output Total 1290 / 1290 650 / 650 Balance 110 / 110 100 / 100 Intake: IV 100 / 100 250 / 250 Heparin/D5W 25,000 U/250 mL 25, 250 / 250 000 unit In 250 ml @ Per Protocol IV.CONT TITRATE PRN Rx #:[id number] Rocephin Inj 2,000 MG In NS Inj 100 / 100 100 ML @ 200 mls/hr IV.SIG Q24H RADHA Rx#:[id number] Oral 1300 / 1300 500 / 500 Output: Urine 1290 / 1290 650 / 650 Other: Date of Last Bowel Movement 04/17/18 04/17/18 04/17/18 Weight 234 lb 5.622 oz Assessment and Plan - Assessment (1) Heart failure of unknown etiology Code(s): I50.9 - Heart failure, unspecified Status: Acute (2) Acute respiratory distress Code(s): R06.03 - Acute respiratory distress Status: Acute (3) Hypoxemia Code(s): R09.02 - Hypoxemia Status: Acute (4) D-dimer, elevated Code(s): R79.89 - Other specified abnormal findings of blood chemistry Status : Acute - Plan We will continue with CHF management including aggressive diuresis; monitor renal fx and K. Pulmonary evaluation in progress. Will schedule adenosine stress test to evaluate for ischemia. Continue to monitor patient on telemetry. Increase activity as tolerated, PT. We will continue to follow the patient during his hospitalization.
--- NOTE | 2018-04-18 15:44 | NM ---
EXAM DATE: 04/18/2018 3:35 PM EST AGE/SEX: 48 years / Male INDICATIONS:Congestive heart failure. Myocardial infarction CLINICAL DATA: This is the patient's initial encounter. Patient reports that signs and symptoms have been present for 2 days and indicates a pain score of 4/10. MEDICAL/SURGICAL HISTORY: Hypertension. None. COMPARISON: No prior exams available for comparison. DOSE: 10 mCi Tc 99m Myoview at rest 30.2 mCi [id number] at stress 0.4 mg Lexiscan STRESS SYMPTOMS: None. EJECTION FRACTION: 27 % TECHNIQUE: The patient underwent pharmacologic stress with infusion of prescribed dose. Continuous ECG tracing was monitored during stress. Gated SPECT imaging was performed after stress and conventi onal SPECT imaging was performed at rest. The examination was performed on a SPECT/CT scanner, both attenuation and non-corrected datasets were reviewed. FINDINGS: Distribution: The maximum perfused segment at stress is in the septal wall. Perfusion Study: There is a large predominantly fixed perfusion defect involving the lateral wall w ith no significant reversibility. This extends into the lateral aspect of the anterior wall and apex. Gated Study: There is apparent global hypokinesis with akinesis in the lateral and anterior and apic al duncan. The ejection fraction is calculated at 27%. RISK CATEGORY: High (>3% Annual Morality Rate) CONCLUSION: 1. Large predominantly fixed defect involving the lateral wall which also involves the lateral anter ior wall and apex. No definite ischemia. 2. Markedly decreased calculated ejection fraction 27% with global hypokinesis and akinesis in the l ateral, anterior and apical duncan. Electronically signed by: Jose R Vazquez MD Board Certified Radiologist 04/18/2018 3:42 PM EST
[2018-04-18] MEDS: amLODIPine 10 MG Tablet PO SCH (16:51)
[2018-04-18] MEDS: hydrALAZINE 50 MG Tablet PO SCH ×2 (16:51→21:03)
--- NOTE | 2018-04-18 17:46 | P.PN ---
Subjective Interval history: He is better today . Diuresed well and now on O2 3 L. On heparin. Physical Exam Vital signs: Vital Signs 04/17/18 18:00 04/17/18 19:00 04/17/18 20:00 Temperature 97.5 F L Pulse Rate 98 H 53 L 53 L Respiratory Rate 20 Blood Pressure 123/61 Pulse Oximetry 90 L 90 L 04/17/18 21:00 04/17/18 21:48 04/17/18 22:00 Temperature Pulse Rate 104 H 53 L 108 H Respiratory Rate 20 Blood Pressure Pulse Oximetry 90 L 04/17/18 23:00 04/18/18 00:00 04/18/18 01:00 Temperature 102.4 F H Pulse Rate 96 H 96 H 96 H Respiratory Rate 22 Blood Pressure 132/72 Pulse Oximetry 93 L 04/18/18 02:00 04/18/18 03:00 04/18/18 04:00 Temperature 98.2 F Pulse Rate 96 H 76 81 Respiratory Rate 20 Blood Pressure 125/73 Pulse Oximetry 95 04/18/18 04:41 04/18/18 05:00 04/18/18 06:00 Temperature Pulse Rate 83 74 74 Respiratory Rate 21 Blood Pressure Pulse Oximetry 04/18/18 07:00 04/18/18 08:00 04/18/18 08:26 Temperature 98.9 F Pulse Rate 88 96 H 102 H Respiratory Rate 20 18 Blood Pressure 145/95 H Pulse Oximetry 92 L 93 L 04/18/18 09:00 04/18/18 09:10 04/18/18 10:00 Temperature Pulse Rate 102 H 90 Respiratory Rate Blood Pressure 125/74 Pulse Oximetry 04/18/18 11:00 04/18/18 11:13 04/18/18 12:00 Temperature 98.6 F Pulse Rate 90 93 H 88 Respiratory Rate 20 Blood Pressure 125/72 Pulse Oximetry 94 L 04/18/18 13:00 04/18/18 15:00 04/18/18 16:00 Temperature Pulse Rate 84 90 94 H Respiratory Rate Blood Pressure Pulse Oximetry 04/18/18 16:07 04/18/18 17:00 Temperature Pulse Rate 89 96 H Respiratory Rate 20 Blood Pressure Pulse Oximetry Intake & Output 04/17/18 04/18/18 04/18/18 18:59 06:59 18:59 Intake Total 1550 / 1550 850 / 850 Output Total 1290 / 1290 650 / 650 Balance 260 / 260 200 / 200 Weight 106.3 kg Intake: IV 250 / 250 350 / 350 Heparin/D5W 25,000 U/250 mL 25, 250 / 250 250 / 250 000 unit In 250 ml @ Per Protocol IV.CONT TITRATE PRN Rx #:[id number] Rocephin Inj 2,000 MG In NS Inj 100 / 100 100 ML @ 200 mls/hr IV.SIG Q24H DANIELLA Rx#:[id number] Oral 1300 / 1300 500 / 500 Output: Urine 1290 / 1290 650 / 650 Other: Date of Last Bowel Movement 04/17/18 04/17/18 04/18/18 Narrative: GENERAL: Mid aged W/M In NAD. SKIN: Skin warm/dry. CARDIOVASCULAR: Regular rate and rhythm. No murmur appreciated. RESPIRATORY: Basal crackles and wheeze. GASTROINTESTINAL: Abdomen soft, non-tender, nondistended. MUSCULOSKELETAL: No cyanosis. 1+ edema. NEUROLOGICAL: Grossly nonfocal. Results - Labs CBC & Chem 7: 04/18/18 05:24 04/18/18 05:24 Laboratory Results - last 24 hr 04/17/18 04/17/18 04/17/18 18:11 20:44 20:44 WBC RBC Hgb Hct MCV MCH MCHC RDW Plt Count MPV APTT 25.0 D Puncture Site Right radial Patient Temperature 98.6 O2 Saturation 91 ABG pH 7.44 H ABG pCO2 38 ABG pO2 69 ABG HCO3 26 ABG O2 Content 17.8 ABG Base Excess 2.0 ABG Methemoglobin 1.6 Davin Test Present Hemoglobin 13.8 Carboxyhemoglobin 1.2 O2 Delivery Device Nasal cannula Liter Flow 5.00 Critical Value No Sodium 132 L Potassium 3.6 Chloride 96 L Carbon Dioxide 27.3 Anion Gap 9 BUN 34 H Creatinine 1.25 Estimated GFR 62 L POC Glucose Random Glucose 162 H Calcium 7.9 L Magnesium Total Bilirubin AST ALT Alkaline Phosphatase Total Protein Albumin 04/17/18 04/18/18 04/18/18 21:53 05:24 05:24 WBC 11.6 H RBC 4.82 Hgb 14.3 Hct 43.2 MCV 89.6 MCH 29.6 MCHC 33.1 RDW 13.6 Plt Count 252 MPV 9.2 APTT Puncture Site Patient Temperature O2 Saturation ABG pH ABG pCO2 ABG pO2 ABG HCO3 ABG O2 Content ABG Base Excess ABG Methemoglobin Davin Test Hemoglobin Carboxyhemoglobin O2 Delivery Device Liter Flow Critical Value Sodium 134 L Potassium 3.4 L Chloride 97 L Carbon Dioxide 30.2 Anion Gap 7 BUN 35 H Creatinine 1.18 Estimated GFR 66 L POC Glucose 170 H Random Glucose 165 H Calcium 8.1 L Magnesium 2.8 H D Total Bilirubin 0.4 AST 53 H ALT 55 Alkaline Phosphatase 150 H Total Protein 7.4 Albumin 2.6 L 04/18/18 04/18/18 04/18/18 08:27 08:46 11:21 WBC RBC Hgb Hct MCV MCH MCHC RDW Plt Count MPV APTT 31.1 D Puncture Site Patient Temperature O2 Saturation ABG pH ABG pCO2 ABG pO2 ABG HCO3 ABG O2 Content ABG Base Excess ABG Methemoglobin Davin Test Hemoglobin Carboxyhemoglobin O2 Delivery Device Liter Flow Critical Value Sodium Potassium Chloride Carbon Dioxide Anion Gap BUN Creatinine Estimated GFR POC Glucose 161 H 188 H Random Glucose Calcium Magnesium Total Bilirubin AST ALT Alkaline Phosphatase Total Protein Albumin 04/18/18 04/18/18 16:55 16:57 WBC RBC Hgb Hct MCV MCH MCHC RDW Plt Count MPV APTT 32.2 H Puncture Site Patient Temperature O2 Saturation ABG pH ABG pCO2 ABG pO2 ABG HCO3 ABG O2 Content ABG Base Excess ABG Methemoglobin Davin Test Hemoglobin Carboxyhemoglobin O2 Delivery Device Liter Flow Critical Value Sodium Potassium Chloride Carbon Dioxide Anion Gap BUN Creatinine Estimated GFR POC Glucose 181 H Random Glucose Calcium Magnesium Total Bilirubin AST ALT Alkaline Phosphatase Total Protein Albumin [facility] 04/16/18 12:05 Blood - Peripheral Aerobic Blood Culture - Preliminary No growth in 2 days 04/16/18 12:05 Blood - Peripheral Anaerobic Blood Culture - Preliminary No growth in 2 days 04/16/18 12:00 Blood - Peripheral Aerobic Blood Culture - Preliminary No growth in 2 days 04/16/18 12:00 Blood - Peripheral Anaerobic Blood Culture - Preliminary No growth in 2 days 04/17/18 18:00 Sputum - Expectorated Sputum Gram Stain - Final - Imaging Impressions Myocardial Perfusion Scan Nuc Med 04/18/18 08:00 CONCLUSION: 1. Large predominantly fixed defect involving the lateral wall which also involves the lateral anterior wall and apex. No definite ischemia. 2. Markedly decreased calculated ejection fraction 27% with global hypokinesis and akinesis in the lateral, anterior and apical duncan. - Procedures none Assessment and Plan - Assessment (1) Pneumonia Code(s): J18.9 - Pneumonia, unspecified organism Status: Acute (2) Heart failure of unknown etiology Code(s): I50.9 - Heart failure, unspecified Status: Acute (3) Acute respiratory distress Code(s): R06.03 - Acute respiratory distress Status: Acute (4) Hypoxemia Code(s): R09.02 - Hypoxemia Status: Acute (5) Hilar mass Code(s): R91.8 - Other nonspecific abnormal finding of lung field Status: Acute (6) D-dimer, elevated Code(s): R79.89 - Other specified abnormal findings of blood chemistry Status : Acute - Plan 1. Cont antibiotic. Rocephin 2. Nebs qid , duoneb 3. Wean O2 to 2 L 4. Continue Lasix 40 mg BID 5. Will get CT Chest to R/O Mass 6. Doppler of leg veins for Possible DVT 7. CBC,BMP in am
--- NOTE | 2018-04-18 18:21 | US ---
EXAM DATE: 04/18/2018 6:13 PM EST AGE/SEX: 48 years / Male INDICATIONS: Bilateral leg pain. CLINICAL DATA: This is the patient's initial encounter. Patient reports that signs and symptoms have been present for 1 day and indicates a pain score of 4/10. MEDICAL/SURGICAL HISTORY: Hypertension. Diabetes. Congestive heart failure. Anxiety. None. COMPARISON: No prior exams available for comparison. TECHNIQUE: Venous ultrasound of both lower extremities was performed from the inguinal ligament to t he proximal calf. Real-time, color Doppler and spectral tracing, compression and augmentation techni ques were used. FINDINGS: Right Leg: Normal compression of the deep venous system from the inguinal region to the proximal monique f. No echogenic clot is seen. Normal response of the venous system to augmentation and respiration. Left Leg: Normal compression of the deep venous system from the inguinal region to the proximal calf . No echogenic clot is seen. Normal response of the venous system to augmentation and respiration. Other: None. CONCLUSION: 1. Negative for deep venous thrombosis Electronically signed by: Hema Garcia MD Board Certified Radiologist 04/18/2018 6:19 PM EST
[2018-04-19] MEDS: Heparin Drip 25,000 UNIT/250 ML BAG IV.CONT PRN (00:30)
[2018-04-19 06:48] LABS: Hematocrit 38.7 % (39.0-51.0); Hemoglobin 13.2 gm/dL (13.0-17.0); Mean Corpuscular Volume 88.3 fL (80.0-100.0); Mean Platelet Volume 9.6 fL (7.0-11.0); Platelet Count 259 th/mm3 (150-450); Red Blood Count 4.38 mil/mm3 (4.50-5.90); Red Cell Distribution Width 13.5 % (11.6-17.2); White Blood Count 11.7 th/mm3 (4.0-11.0)
[2018-04-19 07:03] LABS: Carbon Dioxide 29.2 meq/L (21.0-32.0); Potassium 3.6 meq/L (3.5-5.1)
[2018-04-19] MEDS: Metoprolol Tartrate 25 MG Tablet PO SCH ×2 (08:55→20:21)
[2018-04-19] MEDS: hydrALAZINE 50 MG Tablet PO SCH ×2 (08:55→20:20)
[2018-04-19] MEDS: amLODIPine 10 MG Tablet PO SCH (08:56)
[2018-04-19] MEDS: Isosorbide Mononitrate 60 MG ER 24HR Tablet (Imdur) PO SCH (08:56)
[2018-04-19] MEDS: Lisinopril 20 MG Tablet PO SCH (08:57)
[2018-04-19] MEDS: Insulin NovoLOG Aspart Correctional Sugar Inj SQ SCH ×4 (08:59→20:29)
[2018-04-19] MEDS ORDERED: Metoprolol Tartrate 25 MG Tablet PO SCH ×2 (11:33→12:00)
--- NOTE | 2018-04-19 11:33 | P.PNIM ---
Subjective Interval history: Follow-up heart failure. Improving shortness of breath still on 2 L. Afebrile overnight, no chest pain, lower extremity edema resolved. Still coughing a lot of mucus, dark green. Physical Exam Vital signs: Last Vital Signs Temp 99.0 F 04/19/18 08:00 Pulse 88 04/19/18 09:53 Resp 18 04/19/18 09:53 BP 159/96 H 04/19/18 08:00 Pulse Ox 94 L 04/19/18 09:54 Intake & Output 04/17/18 04/18/18 04/19/18 04/20/18 06:59 06:59 06:59 06:59 Intake Total 400 / 400 2400 / 2400 1190 / 1190 Output Total 1225 / 1225 1940 / 1940 3445 / 3445 Balance -825 / -825 460 / 460 -2255 / -2255 Weight 106.5 kg 106.3 kg 120 kg Narrative: GENERAL: Not in distress, on 2 L of oxygen. SKIN: Skin warm/dry. CARDIOVASCULAR: Regular rate and rhythm. No murmur appreciated. RESPIRATORY: Occasional crackles at bases, no wheezing GASTROINTESTINAL: Abdomen soft, non-tender, nondistended. MUSCULOSKELETAL: No cyanosis. No edema. NEUROLOGICAL: Grossly nonfocal. Alert awake and oriented x3. Results Labs CBC & Chem 7: 04/19/18 05:16 04/19/18 05:16 Labs: Microbiology 04/16/18 12:05 Blood - Peripheral Aerobic Blood Culture - Preliminary No growth in 3 days 04/16/18 12:05 Blood - Peripheral Anaerobic Blood Culture - Preliminary No growth in 3 days 04/16/18 12:00 Blood - Peripheral Aerobic Blood Culture - Preliminary No growth in 3 days 04/16/18 12:00 Blood - Peripheral Anaerobic Blood Culture - Preliminary No growth in 3 days 04/17/18 18:00 Sputum - Expectorated Sputum Gram Stain - Final Imaging Imaging: Impressions Venous Doppler Study 04/18/18 00:00 CONCLUSION: 1. Negative for deep venous thrombosis Myocardial Perfusion Scan Nuc Med 04/18/18 08:00 CONCLUSION: 1. Large predominantly fixed defect involving the lateral wall which also involves the lateral anterior wall and apex. No definite ischemia. 2. Markedly decreased calculated ejection fraction 27% with global hypokinesis and akinesis in the lateral, anterior and apical duncan. Procedures Procedures: none Assessment and Plan (1) Pneumonia: Code(s): J18.9 - Pneumonia, unspecified organism Status: Acute (2) Heart failure of unknown etiology: Code(s): I50.9 - Heart failure, unspecified Status: Acute (3) Acute respiratory distress: Code(s): R06.03 - Acute respiratory distress Status: Acute (4) Hypoxemia: Code(s): R09.02 - Hypoxemia Status: Acute (5) Hilar mass: Code(s): R91.8 - Other nonspecific abnormal finding of lung field Status: Acute (6) D-dimer, elevated: Code(s): R79.89 - Other specified abnormal findings of blood chemistry Status: Acute Plan The patient is a 48-year-old male with a past medical history of CHF who is presenting to the hospital with worsening shortness of breath with dark mucus production associated with chest pain. Acute on chronic systolic CHF with NSTEMI - EF 30% with LVH. Chest x-ray showed vascular congestion, BNP is 1016, patient ran out of diuretics, troponin III 0.16, EKG showed sinus rhythm with intraventricular conduction delay and PVCs. Cardiology consulted. Recommends aggressive diuresis, clinically improving. Adenosine stress test showed a fixed defect on the lateral wall which also involves the lateral anterior wall and apex, no ischemia. - Continue pravastatin, aspirin, metoprolol, continue lisinopril, nitrates. Continue Lasix twice a day, monitor BMP. Consider LifeVest. Repeat echo in 3 months on optimal management, may need ICD. Left lower extremity Doppler done , negative for DVT. Accelerated hypertension-improved, antihypertensives as above, continue lisinopril, nitrates, hydralazine as needed. Rule out pneumonia-patient has been having dark colored mucus, chest x-ray showed masslike opacity in the right hilum, patient also having fever, blood cultures negative, Gram stain showed mixed tiffanie, moderate WBCs, continue ceftriaxone, follow-up sputum culture. Pulmonology following, continue duo nebs , follow-up chest CT. Continue oxygen supplementation. Hyponatremia-monitor, resolved. Noncompliance -The pt ran out of many medications weeks ago and has not bothered to get them refilled. Counseled. New-onset uncontrolled diabetes mellitus type II-hemoglobin A1c 8.8, continue sliding scale coverage, start metformin, consider Jardiance. Diabetic education. Congestive hepatopathy-elevated AST secondary to heart failure. Patient also on statin. Will monitor PPx: Heparin gtt Not ready for discharge. May need home oxygen. PT consulted-home health care Progress Note: Quality VTE Deep Vein Thrombosis/Pulmonary Embolism Present on Admission: No _ (1) Pneumonia Qualifiers: Aspiration pneumonia type: Laterality: Lung location: Pneumonia type:
--- NOTE | 2018-04-19 12:24 | P.PNIM ---
Physical Exam Vital signs: Last Vital Signs Temp 99.0 F 04/19/18 08:00 Pulse 88 04/19/18 09:53 Resp 18 04/19/18 09:53 BP 159/96 H 04/19/18 08:00 Pulse Ox 94 L 04/19/18 09:54 Intake & Output 04/17/18 04/18/18 04/19/18 04/20/18 06:59 06:59 06:59 06:59 Intake Total 400 / 400 2400 / 2400 1190 / 1190 Output Total 1225 / 1225 1940 / 1940 3445 / 3445 Balance -825 / -825 460 / 460 -2255 / -2255 Weight 106.5 kg 106.3 kg 120 kg Results Labs CBC & Chem 7: 04/19/18 05:16 04/19/18 05:16 Labs: Microbiology 04/16/18 12:05 Blood - Peripheral Aerobic Blood Culture - Preliminary No growth in 3 days 04/16/18 12:05 Blood - Peripheral Anaerobic Blood Culture - Preliminary No growth in 3 days 04/16/18 12:00 Blood - Peripheral Aerobic Blood Culture - Preliminary No growth in 3 days 04/16/18 12:00 Blood - Peripheral Anaerobic Blood Culture - Preliminary No growth in 3 days 04/17/18 18:00 Sputum - Expectorated Sputum Gram Stain - Final Imaging Imaging: Impressions Venous Doppler Study 04/18/18 00:00 CONCLUSION: 1. Negative for deep venous thrombosis Myocardial Perfusion Scan Nuc Med 04/18/18 08:00 CONCLUSION: 1. Large predominantly fixed defect involving the lateral wall which also involves the lateral anterior wall and apex. No definite ischemia. 2. Markedly decreased calculated ejection fraction 27% with global hypokinesis and akinesis in the lateral, anterior and apical duncan. Procedures Procedures: none Assessment and Plan (1) Pneumonia: Code(s): J18.9 - Pneumonia, unspecified organism Status: Acute (2) Heart failure of unknown etiology: Code(s): I50.9 - Heart failure, unspecified Status: Acute (3) Acute respiratory distress: Code(s): R06.03 - Acute respiratory distress Status: Acute (4) Hypoxemia: Code(s): R09.02 - Hypoxemia Status: Acute (5) Hilar mass: Code(s): R91.8 - Other nonspecific abnormal finding of lung field Status: Acute (6) D-dimer, elevated: Code(s): R79.89 - Other specified abnormal findings of blood chemistry Status: Acute Plan The patient is a 48-year-old male with a past medical history of CHF who is presenting to the hospital with worsening shortness of breath with dark mucus production associated with chest pain. Acute on chronic systolic CHF with NSTEMI - EF 30% with LVH. Chest x-ray showed vascular congestion, BNP is 1016, patient ran out of diuretics, troponin III 0.16, EKG showed sinus rhythm with intraventricular conduction delay and PVCs. Cardiology consulted. Recommends aggressive diuresis, clinically improving. Adenosine stress test showed a fixed defect on the lateral wall which also involves the lateral anterior wall and apex, no ischemia. Discussed with cardiology Dr. Rushing, may stop heparin IV. -Continue pravastatin, aspirin, metoprolol, continue lisinopril, nitrates. Continue Lasix twice a day, monitor BMP. Consider LifeVest. Repeat echo in 3 months on optimal management, may need ICD. Left lower extremity Doppler done , negative for DVT. Accelerated hypertension-improved, antihypertensives as above, continue lisinopril, nitrates, hydralazine as needed. Rule out pneumonia-patient has been having dark colored mucus, chest x-ray showed masslike opacity in the right hilum, patient also having fever, blood cultures negative, Gram stain showed mixed tiffanie, moderate WBCs, continue ceftriaxone, follow-up sputum culture. Pulmonology following, continue duo nebs , follow-up chest CT. Continue oxygen supplementation. Hyponatremia-monitor, resolved. Noncompliance -The pt ran out of many medications weeks ago and has not bothered to get them refilled. Counseled. New-onset uncontrolled diabetes mellitus type II-hemoglobin A1c 8.8, continue sliding scale coverage, start metformin, consider Jardiance. Diabetic education. Congestive hepatopathy-elevated AST secondary to heart failure. Patient also on statin. Will monitor DVT PPx: Heparin subcutaneous. Not ready for discharge. May need home oxygen. PT consulted-home health care Progress Note: Quality VTE Deep Vein Thrombosis/Pulmonary Embolism Present on Admission: No _ (1) Pneumonia Qualifiers: Aspiration pneumonia type: Laterality: Lung location: Pneumonia type:
--- NOTE | 2018-04-19 15:32 | P.PNCA ---
Subjective Interval history: Patient denies any CP, pressure, palpitations or dizziness at this time. Patient complains of mild SOB with edema, both are improving. Medications and Allergies Allergies Allergy/AdvReac Type Severity Reaction Status Date / Time No Known Allergies Allergy Verified 04/16/18 16:36 Home Medications Medication Instructions Recorded Confirmed Type amlodipine 10 mg PO DAILY 04/16/18 04/16/18 History bumetanide 2 mg PO DAILY 04/16/18 04/16/18 History escitalopram oxalate [Lexapro] 20 mg PO DAILY 04/16/18 04/16/18 History hydralazine 50 mg PO BID 04/16/18 04/16/18 History isosorbide mononitrate 60 mg PO DAILY 04/16/18 04/16/18 History lisinopril 20 mg PO DAILY 04/16/18 04/16/18 History pravastatin 40 mg PO HS 04/16/18 04/16/18 History Active Medications: Active Medications Acetaminophen (Tylenol) 650 mg PO Q4H PRN PRN Reason: HEADACHE OR TEMP > 101 F Last Admin: 04/18/18 00:40 Dose: 650 mg Albuterol (Duoneb Neb ([facility])) 1 ampul NEB Q6HR NEB [facility] Last Admin: 04/19/18 09:53 Dose: 1 ampul Amlodipine Besylate (Norvasc) 10 mg PO DAILY [facility] Last Admin: 04/19/18 08:56 Dose: 10 mg Aspirin (Ecotrin) 325 mg PO DAILY [facility] Last Admin: 04/19/18 08:57 Dose: 325 mg Dextrose (D50w Vial) 50 ml IV.PUSH UNSCH PRN PRN Reason: PER HYPOGLYCEMIA PROTOCOL Enalaprilat (Vasotec Inj) 1.25 mg IV.PUSH Q6H PRN PRN Reason: SEE LABEL COMMENTS Escitalopram Oxalate (Lexapro) 20 mg PO DAILY [facility] Last Admin: 04/19/18 08:56 Dose: 20 mg Furosemide (Lasix Inj) 80 mg IV.PUSH BID@0900,1800 [facility] Last Admin: 04/19/18 08:58 Dose: 80 mg Glucagon (Glucagon Inj) 1 mg OTHER UNSCH PRN PRN Reason: for Hypoglycemia Protocol Heparin Sodium (Porcine) (Heparin Inj) 5,000 units SQ Q12HR [facility] Hydralazine HCl (Apresoline) 50 mg PO BID [facility] Last Admin: 04/19/18 08:55 Dose: 50 mg Hydralazine HCl (Apresoline Inj) 10 mg IV.PUSH Q6H PRN PRN Reason: SEE LABEL COMMENTS Ceftriaxone Sodium 2,000 mg/ (Sodium Chloride) 100 mls @ 200 mls/hr IV.SIG Q24H [facility] Last Infusion: 04/18/18 21:40 Dose: Infused Insulin Aspart (Novolog Insulin [employer] Sugar Inj) 0 unit SQ ACHS [facility]; Protocol Last Admin: 04/19/18 12:48 Dose: 1 unit Isosorbide Mononitrate (Imdur) 60 mg PO DAILY [facility] Last Admin: 04/19/18 08:56 Dose: 60 mg Lisinopril (Prinivil) 20 mg PO DAILY [facility] Last Admin: 04/19/18 08:57 Dose: 20 mg Metformin HCl (Glucophage) 500 mg PO BIDPC [facility] Last Admin: 04/19/18 12:48 Dose: 500 mg Metoprolol Tartrate (Lopressor) 12.5 mg PO BID [facility] Miscellaneous (Pill Splitter) 1 each OTHER UNSCH PRN PRN Reason: SEE LABEL COMMENTS Nitroglycerin (Nitrostat Sl) 0.4 mg SL Q5M PRN PRN Reason: CHEST PAIN Nitroglycerin (Nitro-Bid 2% Oint) 1 inch TOPICAL Q6HR [facility] Last Admin: 04/19/18 12:49 Dose: Not Given Potassium Chloride (Klor-Con 10) 30 meq PO BID [facility] Last Admin: 04/19/18 08:54 Dose: 30 meq Pravastatin Sodium (Pravachol) 40 mg PO HS [facility] Last Admin: 04/18/18 21:03 Dose: 40 mg Sodium Chloride (Ns Inj) 2 ml IV.FLUSH BID [facility] Last Admin: 04/19/18 09:00 Dose: 2 ml Sodium Chloride (Ns Inj) 2 ml IV.FLUSH UNSCH PRN PRN Reason: FLUSH AFTER USING IV ACCESS Physical Exam Vital signs: Vital Signs 04/18/18 16:00 04/18/18 16:07 04/18/18 17:00 Temperature 99.8 F H Pulse Rate 92 H 89 96 H Respiratory Rate 22 20 Blood Pressure 141/88 H Pulse Oximetry 93 L 04/18/18 18:00 04/18/18 19:00 12/13/18 20:00 Temperature Pulse Rate 104 H 110 H 110 H Respiratory Rate 17 20 Blood Pressure 135/92 H Pulse Oximetry 94 L 92 L 04/18/18 21:00 04/18/18 22:00 04/18/18 23:00 Temperature Pulse Rate 102 H 96 H 94 H Respiratory Rate Blood Pressure Pulse Oximetry 04/19/18 00:00 04/19/18 01:00 04/19/18 02:00 Temperature 98.3 F Pulse Rate 94 H 92 H 92 H Respiratory Rate 20 Blood Pressure 127/78 Pulse Oximetry 93 L 04/19/18 03:00 04/19/18 03:20 04/19/18 04:00 Temperature 98.5 F Pulse Rate 90 93 H 92 H Respiratory Rate 15 20 Blood Pressure 143/92 H Pulse Oximetry 94 L 04/19/18 05:00 04/19/18 06:00 04/19/18 08:00 Temperature 99.0 F Pulse Rate 88 94 H 97 H Respiratory Rate 22 Blood Pressure 159/96 H Pulse Oximetry 92 L 04/19/18 09:53 04/19/18 09:54 Temperature Pulse Rate 88 Respiratory Rate 18 Blood Pressure Pulse Oximetry 94 L Intake & Output 04/18/18 04/19/18 04/19/18 18:59 06:59 18:59 Intake Total 600 / 600 590 / 590 Output Total 2420 / 2420 1025 / 1025 Balance -1820 / -1820 -435 / -435 Weight 120 kg Intake: IV 350 / 350 Heparin/D5W 25,000 U/250 mL 25, 250 / 250 000 unit In 250 ml @ Per Protocol IV.CONT TITRATE PRN Rx #:[id number] Rocephin Inj 2,000 MG In NS Inj 100 / 100 100 ML @ 200 mls/hr IV.SIG Q24H DANIELLA Rx#:[id number] Oral 600 / 600 240 / 240 Output: Urine 2420 / 2420 1025 / 1025 Other: Date of Last Bowel Movement 04/18/18 04/18/18 04/19/18 - Constitutional no acute distress - Routine HEENT Exam Head: Present: normocephalic Eye: Present: PERRL ENT: Present: mucous membranes moist - Routine Neck Exam Present: full ROM - Routine Respiratory Exam Present: decreased breath sounds, wheezes, crackles, distant breath sounds Comments: Rhonchi in the upper lobes, inspiratory and expiratory wheezing in the right middle lobe and course crackles bilat lower lobes. Patient on NC at this time - Routine Cardiovascular Exam Present: S1, S2. Absent: murmur, gallop, rubs - Routine Abdominal Exam Present: normoactive bowel sounds - Routine Extremities Exam Present: edema, full ROM, pulses intact, normal capillary refill. Absent: cyanosis, clubbing Comments: Edema is slowly improving. - Routine Skin Exam Present: intact - Routine Neurological Exam Present: oriented X3 - Detailed Neurological Exam: Coma Scale Eye Opening: Spontaneous Verbal Response: Oriented Motor Response: Obey commands Dada Coma Scale Total: 15 - Routine Psychiatric Exam Present: normal affect Results 04/19/18 05:16 04/19/18 05:16 Cardiac Enzymes 04/18/18 Range/Units 05:24 AST 53 H (15-37) U/L Coagulation 04/17/18 04/18/18 04/18/18 Range/Units 20:44 08:46 16:55 APTT 25.0 D 31.1 D 32.2 H (23.4-31.7) sec 04/19/18 Range/Units 01:01 APTT 31.7 (23.4-31.7) sec CBC 04/18/18 04/19/18 Range/Units 05:24 05:16 WBC 11.6 H 11.7 H (4.0-11.0) th/mm3 RBC 4.82 4.38 L (4.50-5.90) mil/mm3 Hgb 14.3 13.2 (13.0-17.0) gm/dL Hct 43.2 38.7 L (39.0-51.0) % Plt Count 252 259 (150-450) th/mm3 Comprehensive Metabolic Panel 04/17/18 04/18/18 04/19/18 Range/Units 20:44 05:24 05:16 Sodium 132 L 134 L 136 (136-145) meq/L Potassium 3.6 3.4 L 3.6 (3.5-5.1) meq/L Chloride 96 L 97 L 99 (98-107) meq/L Carbon Dioxide 27.3 30.2 29.2 (21.0-32.0) meq/L BUN 34 H 35 H 27 H (7-18) mg/dL Creatinine 1.25 1.18 0.92 (0.60-1.30) mg/dL Calcium 7.9 L 8.1 L 8.0 L (8.5-10.1) mg/dL AST 53 H (15-37) U/L ALT 55 (12-78) U/L Alkaline Phosphatase 150 H (45-117) U/L Total Protein 7.4 (6.4-8.2) g/dL Albumin 2.6 L (3.4-5.0) g/dL Intake and Output 04/19/18 04/19/18 04/19/18 06:59 14:59 22:59 Intake Total 490 / 490 Output Total 1025 / 1025 Balance -535 / -535 Intake: IV 250 / 250 Heparin/D5W 25,000 U/250 mL 25, 250 / 250 000 unit In 250 ml @ Per Protocol IV.CONT TITRATE PRN Rx #:[id number] Oral 240 / 240 Output: Urine 1025 / 1025 Other: Date of Last Bowel Movement 04/18/18 04/19/18 Weight 120 kg - Imaging and Cardiology Imaging: Impressions Venous Doppler Study 04/18/18 00:00 CONCLUSION: 1. Negative for deep venous thrombosis Myocardial Perfusion Scan Nuc Med 04/18/18 08:00 CONCLUSION: 1. Large predominantly fixed defect involving the lateral wall which also involves the lateral anterior wall and apex. No definite ischemia. 2. Markedly decreased calculated ejection fraction 27% with global hypokinesis and akinesis in the lateral, anterior and apical duncan. Assessment and Plan - Assessment (1) Heart failure of unknown etiology Code(s): I50.9 - Heart failure, unspecified Status: Acute (2) Acute respiratory distress Code(s): R06.03 - Acute respiratory distress Status: Acute (3) Hypoxemia Code(s): R09.02 - Hypoxemia Status: Acute (4) D-dimer, elevated Code(s): R79.89 - Other specified abnormal findings of blood chemistry Status : Acute - Plan Patient currently on NC from [facility], pulmonary evaluation in progress. SPECT done yesterday which showed predominantly fixed defect involving lateral wall, lateral anterior wall and apex. No definite ischemia, global hypokinesis and akinesis in the lateral, anterior and apical duncan. Patients edema and SOB are improving, continue with aggressive diuresis and CHF management. We will continue to monitor renal function and potassium levels. Continue to monitor patient on telemetry. Continue to increase activity as patient tolerated. We will continue to follow patient during hospitalization. The patient was seen and evaluated by Dr. Rushing who participated in care, management and decision making. - Attending Attestation Patient seen and examined. I reviewed and agree with the evaluation and plan as presented. Nuc ST with a large fixed defect, no evidence of ischemia. Continue tx for CHF. Pulmonary evaluation in progress.
--- NOTE | 2018-04-19 15:54 | P.DIET ---
Nutritional Evaluation Type of nutrition evaluation: initial Nutrition screening: MDC (diet education) Screening comments: 04/17 MDC for diet education Assessment Assessment: MDC for diet education received on 04/17. Pts present during RD visit. RD provided DM educational materials for pt. Pt and receptive and asked questions relating towards DM diet patterns. RD provided answers for pt. Consult RD if any complexities arise. Recommendations: Consult RD if any complexities arise
--- NOTE | 2018-04-19 18:21 | P.PN ---
Subjective Interval history: He is feeling better. On O2 [address] chest not done yet. No chest pains. Leg edema less. Physical Exam Vital signs: Vital Signs 04/18/18 19:00 04/18/18 20:00 04/18/18 21:00 Temperature Pulse Rate 110 H 110 H 102 H Respiratory Rate 17 20 Blood Pressure 135/92 H Pulse Oximetry 94 L 92 L 04/18/18 22:00 04/18/18 23:00 04/19/18 00:00 Temperature 98.3 F Pulse Rate 96 H 94 H 94 H Respiratory Rate 20 Blood Pressure 127/78 Pulse Oximetry 93 L 04/19/18 01:00 04/19/18 02:00 04/19/18 03:00 Temperature Pulse Rate 92 H 92 H 90 Respiratory Rate Blood Pressure Pulse Oximetry 04/19/18 03:20 04/19/18 04:00 04/19/18 05:00 Temperature 98.5 F Pulse Rate 93 H 92 H 88 Respiratory Rate 15 20 Blood Pressure 143/92 H Pulse Oximetry 94 L 04/19/18 06:00 04/19/18 08:00 04/19/18 09:53 Temperature 99.0 F Pulse Rate 94 H 97 H 88 Respiratory Rate 22 18 Blood Pressure 159/96 H Pulse Oximetry 92 L 04/19/18 09:54 04/19/18 12:00 04/19/18 16:00 Temperature 98.5 F 98.2 F Pulse Rate 87 85 Respiratory Rate 18 18 Blood Pressure 116/76 144/86 H Pulse Oximetry 94 L 93 L 93 L 04/19/18 17:02 Temperature Pulse Rate 87 Respiratory Rate 18 Blood Pressure Pulse Oximetry Intake & Output 04/18/18 04/19/18 04/19/18 18:59 06:59 18:59 Intake Total 600 / 600 590 / 590 Output Total 2420 / 2420 1025 / 1025 Balance -1820 / -1820 -435 / -435 Weight 120 kg Intake: IV 350 / 350 Heparin/D5W 25,000 U/250 mL 25, 250 / 250 000 unit In 250 ml @ Per Protocol IV.CONT TITRATE PRN Rx #:[id number] Rocephin Inj 2,000 MG In NS Inj 100 / 100 100 ML @ 200 mls/hr IV.SIG Q24H DANIELLA Rx#:[id number] Oral 600 / 600 240 / 240 Output: Urine 2420 / 2420 1025 / 1025 Other: Date of Last Bowel Movement 04/18/18 04/18/18 04/19/18 Narrative: GENERAL: Obese mid aged W/M Not in distress, on 2 L of oxygen. SKIN: Skin warm/dry. CARDIOVASCULAR: Regular rate and rhythm. No murmur appreciated. RESPIRATORY: Occasional crackles at bases, no wheezing GASTROINTESTINAL: Abdomen soft, non-tender, nondistended. MUSCULOSKELETAL: No cyanosis. 1 + edema. NEUROLOGICAL: Grossly nonfocal. Alert awake and oriented x3. Results - Labs CBC & Chem 7: 04/19/18 05:16 04/19/18 05:16 Laboratory Results - last 24 hr 04/18/18 04/19/18 04/19/18 20:41 01:01 05:16 WBC 11.7 H RBC 4.38 L Hgb 13.2 Hct 38.7 L MCV 88.3 MCH 30.0 MCHC 34.0 RDW 13.5 Plt Count 259 MPV 9.6 APTT 31.7 Sodium Potassium Chloride Carbon Dioxide Anion Gap BUN Creatinine Estimated GFR POC Glucose 224 H Random Glucose Calcium 04/19/18 04/19/18 04/19/18 05:16 08:17 11:53 WBC RBC Hgb Hct MCV MCH MCHC RDW Plt Count MPV APTT Sodium 136 Potassium 3.6 Chloride 99 Carbon Dioxide 29.2 Anion Gap 8 BUN 27 H Creatinine 0.92 Estimated GFR 88 L POC Glucose 200 H 189 H Random Glucose 161 H Calcium 8.0 L 04/19/18 17:07 WBC RBC Hgb Hct MCV MCH MCHC RDW Plt Count MPV APTT Sodium Potassium Chloride Carbon Dioxide Anion Gap BUN Creatinine Estimated GFR POC Glucose 146 H Random Glucose Calcium Microbiology 04/17/18 18:00 Sputum - Expectorated Sputum Gram Stain - Final 04/17/18 18:00 Sputum - Expectorated Sputum Sputum Culture - Preliminary Heavy growth normal respiratory tiffanie at 24 hours 04/16/18 12:05 Blood - Peripheral Aerobic Blood Culture - Preliminary No growth in 3 days 04/16/18 12:05 Blood - Peripheral Anaerobic Blood Culture - Preliminary No growth in 3 days 04/16/18 12:00 Blood - Peripheral Aerobic Blood Culture - Preliminary No growth in 3 days 04/16/18 12:00 Blood - Peripheral Anaerobic Blood Culture - Preliminary No growth in 3 days - Imaging Impressions Venous Doppler Study 04/18/18 00:00 CONCLUSION: 1. Negative for deep venous thrombosis - Procedures none Assessment and Plan - Assessment (1) Pneumonia Code(s): J18.9 - Pneumonia, unspecified organism Status: Acute (2) Heart failure of unknown etiology Code(s): I50.9 - Heart failure, unspecified Status: Acute (3) Acute respiratory distress Code(s): R06.03 - Acute respiratory distress Status: Acute (4) Hypoxemia Code(s): R09.02 - Hypoxemia Status: Acute (5) Hilar mass Code(s): R91.8 - Other nonspecific abnormal finding of lung field Status: Acute (6) D-dimer, elevated Code(s): R79.89 - Other specified abnormal findings of blood chemistry Status : Acute - Plan 1. Cont antibiotic. and switch to PO ceftin 2. Nebs qid , duoneb 3. Cont O2 2 L 4. Continue Lasix 80 mg BID 5. Will get CT Chest to R/O Mass 6. Doppler of leg veins for Possible DVT 7. CBC,BMP in am
[2018-04-19] MEDS: Heparin - SQ 10,000 UNITS/ML Vial SQ SCH (20:25)
[2018-04-20 08:47] LABS: Calcium 9.1 mg/dL (8.5-10.1); Carbon Dioxide 35.4 meq/L (21.0-32.0); Potassium 3.9 meq/L (3.5-5.1)
[2018-04-20] MEDS: Insulin NovoLOG Aspart Correctional Sugar Inj SQ SCH ×4 (09:24→20:34)
[2018-04-20] MEDS: Heparin - SQ 10,000 UNITS/ML Vial SQ SCH ×2 (09:27→20:21)
[2018-04-20] MEDS: hydrALAZINE 50 MG Tablet PO SCH ×2 (09:28→20:21)
[2018-04-20] MEDS: Isosorbide Mononitrate 60 MG ER 24HR Tablet (Imdur) PO SCH (09:28)
[2018-04-20] MEDS: Metoprolol Tartrate 25 MG Tablet PO SCH ×2 (09:28→20:22)
[2018-04-20] MEDS: amLODIPine 10 MG Tablet PO SCH (09:29)
[2018-04-20] MEDS: Lisinopril 20 MG Tablet PO SCH (09:29)
--- NOTE | 2018-04-20 11:03 | P.PNIM ---
Subjective Interval history: No overnight events, feeling good, still on oxygen at 2 L. Breathing a lot better, no chest pain. Physical Exam Vital signs: Last Vital Signs Temp 97.7 F 04/20/18 07:59 Pulse 82 04/20/18 10:00 Resp 14 04/20/18 09:00 BP 150/84 H 04/20/18 09:25 Pulse Ox 95 04/20/18 09:38 Intake & Output 04/18/18 04/19/18 04/20/18 04/21/18 06:59 06:59 06:59 06:59 Intake Total 2400 / 2400 1190 / 1190 1480 / 1480 Output Total 1940 / 1940 3445 / 3445 3475 / 3475 Balance 460 / 460 -2254 / -2254 -1994 / Weight 106.3 kg 120 kg 118.5 kg Narrative: GENERAL: Obese mid aged W/M Not in distress, on 2 L of oxygen. SKIN: Skin warm/dry. CARDIOVASCULAR: Regular rate and rhythm. No murmur appreciated. RESPIRATORY: Occasional rhonchi, no crackles or wheezing GASTROINTESTINAL: Abdomen soft, non-tender, nondistended. MUSCULOSKELETAL: No cyanosis. Trace edema. NEUROLOGICAL: Grossly nonfocal. Alert awake and oriented x3. Results Labs CBC & Chem 7: 04/19/18 05:16 04/20/18 07:44 Labs: Microbiology 04/17/18 18:00 Sputum - Expectorated Sputum Gram Stain - Final 04/17/18 18:00 Sputum - Expectorated Sputum Sputum Culture - Preliminary Heavy growth normal respiratory tiffanie at 24 hours 04/16/18 12:05 Blood - Peripheral Aerobic Blood Culture - Preliminary No growth in 3 days 04/16/18 12:05 Blood - Peripheral Anaerobic Blood Culture - Preliminary No growth in 3 days 04/16/18 12:00 Blood - Peripheral Aerobic Blood Culture - Preliminary No growth in 3 days 04/16/18 12:00 Blood - Peripheral Anaerobic Blood Culture - Preliminary No growth in 3 days Procedures Procedures: none Assessment and Plan (1) Heart failure of unknown etiology: Code(s): I50.9 - Heart failure, unspecified Status: Acute (2) Acute respiratory distress: Code(s): R06.03 - Acute respiratory distress Status: Acute (3) Hypoxemia: Code(s): R09.02 - Hypoxemia Status: Acute (4) D-dimer, elevated: Code(s): R79.89 - Other specified abnormal findings of blood chemistry Status: Acute Plan The patient is a 48-year-old male with a past medical history of CHF who is presenting to the hospital with worsening shortness of breath with dark mucus production associated with chest pain. EF 30% with LVH. Chest x-ray showed vascular congestion, BNP is 1016, patient ran out of diuretics, troponin III 0.16, EKG showed sinus rhythm with intraventricular conduction delay and PVCs. Cardiology consulted. Recommends aggressive diuresis, clinically improving. Adenosine stress test showed a fixed defect on the lateral wall which also involves the lateral anterior wall and apex, no ischemia. Left lower extremity Doppler done, negative for DVT. Repeat echo in 3 months on optimal management, may need AICD. Patient also being treated for pneumonia with dark colored mucus , chest x-ray showed masslike opacity in the right hilum, blood culture negative , Gram stain showed mixed tiffanie with moderate WBCs, patient was started on ceftriaxone and was switched to cefuroxime. Awaiting CT scan of the chest to rule out bronchogenic carcinoma. Blood glucose was uncontrolled, hemoglobin A1c 8.8, patient was started on metformin. Acute on chronic systolic CHF with NSTEMI - Discussed with cardiology Dr. Rushing, may stop heparin IV. Continue pravastatin, aspirin, metoprolol, continue lisinopril, nitrates. Continue Lasix twice a day, switch to oral, BMP stable. Recheck BMP tomorrow. Accelerated hypertension-improved, antihypertensives as above, continue lisinopril, Norvasc, nitrates, hydralazine as needed. Rule out pneumonia-patient has been having dark colored mucus, chest x-ray showed masslike opacity in the right hilum, patient also having fever, blood cultures negative, Gram stain showed mixed tiffanie, moderate WBCs, continue antibiotics, switch ceftriaxone to cefuroxime. Ceftriaxone, follow-up sputum culture. Pulmonology following, continue duo nebs, follow-up chest CT to rule out bronchogenic carcinoma. Patient does not have any pair source, needs to be on room air before discharge. Hyponatremia-monitor, resolved. Noncompliance -The pt ran out of many medications weeks ago and has not bothered to get them refilled. Counseled. New-onset uncontrolled diabetes mellitus type II-hemoglobin A1c 8.8, continue sliding scale coverage, cont metformin, consider Jardiance prior to discharge. Diabetic education. Congestive hepatopathy-elevated AST secondary to heart failure. Patient also on statin. Monitor as outpatient. DVT PPx: Heparin subcutaneous. Not ready for discharge. Still on 2 L of oxygen. Discharge home when on room air. Progress Note: Quality VTE Deep Vein Thrombosis/Pulmonary Embolism Present on Admission: No
--- NOTE | 2018-04-20 13:40 | NM ---
EXAM DATE: 04/20/2018 1:34 PM EST AGE/SEX: 48 years / Male INDICATIONS: Dyspnea. CLINICAL DATA: This is the patient's initial encounter. Patient reports that signs and symptoms have been present for 1 day and indicates a pain score of 0/10. MEDICAL/SURGICAL HISTORY: Congestive heart failure. Hypertension. None. COMPARISON: [facility], CHEST 1V SINGLE AP, 04/16/2018. . DOSE: 0.6 mCi Tc99m DTPA aerosol 8.2 mCi Tc99m MAA IV TECHNIQUE: Following five minutes of tidal breathing of DTPA aerosol, planar images of the lungs wer e performed in eight projections. The patient was then injected with MAA, and eight-view perfusion s can was performed. FINDINGS: Heterogeneous pattern of aerosol delivery to the periphery of both lungs. Multiple small matched defe cts are noted bilaterally. Perfusion demonstrates multiple areas of matched perfusion defects, small in size. CONCLUSION: 1. Multiple small matched perfusion and ventilation defects. Low probability of PE. Electronically signed by: Audra Loredo MD Board Certified Radiologist 04/20/2018 1:38 PM JOHN Urbano
--- NOTE | 2018-04-20 13:57 | CT ---
EXAM DATE: 04/20/2018 1:49 PM EST AGE/SEX: 48 years / Male INDICATIONS: Short of breath, possible right sided lung mass. CLINICAL DATA: This is the patient's initial encounter. Patient reports that signs and symptoms have been present for 1 week and indicates a pain score of 7/10. MEDICAL/SURGICAL HISTORY: Congestive heart failure. Hypertension. None. RADIATION DOSE: 18.46 CTDI (mGy) COMPARISON: [facility] [place], [place] LUNG VENT & PERFUSE, 04/20/2018. [facility], CHEST 1V SINGLE AP, 04/16/2018. [facility], CHEST SINGLE AP, 12/26/2014. . TECHNIQUE: Multiple contiguous axial images were obtained through the chest without contrast. Image s were obtained in suspended respiration using multiple row detector helical technique. Using automa erik exposure control and adjustment of the mA and/or kV according to patient size, radiation dose was kept as low as reasonably achievable to obtain optimal diagnostic quality images. DICOM format imag e data is available electronically for review and comparison. FINDINGS: Lungs: The lungs are significant for multifocal bilateral airspace groundglass opacities identified predominantly adjacent to vascular structures within area of rounded airspace consolidation involving the right upper lobe. There is pleural effusion on the right, small with fluid also seen within the minor fissure. Mediastinum: The heart is moderately enlarged with severe three-vessel calcified coronary artery dis ease. Pleurae: Small right-sided pleural effusion with extension into the minor fissure. Focal pleural thi ckening seen adjacent to the area of rounded airspace consolidation involving the basilar aspect of t he right upper lobe. Axillae: Unremarkable. Bony Structures: Unremarkable. Miscellaneous: The examination was extended to include the upper abdomen, and both adrenal glands ar e normal in size and configuration. CONCLUSION: 1. Bilateral multifocal airspace groundglass opacities. Given the distribution adjacent to vascular structures and enlargement of cardiac silhouette this likely represents congestive heart failure with pulmonary edema. Area of rounded airspace consolidation involving the right upper lobe abuts the ple ura with focal thickening of the pleural surface. Findings are compatible with rounded atelectasis ve rsus irregular parenchymal mass. Right-sided pleural effusion is noted above. Electronically signed by: Audra Loredo MD Board Certified Radiologist 04/20/2018 1:56 PM Sundeep
--- NOTE | 2018-04-20 15:22 | P.PN ---
Subjective Interval history: Doing better. Still with good output. Physical Exam Vital signs: Vital Signs 04/19/18 16:00 04/19/18 17:00 04/19/18 17:02 Temperature 98.2 F Pulse Rate 82 85 87 Respiratory Rate 18 18 Blood Pressure 144/86 H Pulse Oximetry 93 L 04/19/18 18:00 04/19/18 19:00 04/19/18 20:00 Temperature 98.5 F Pulse Rate 90 90 92 H Respiratory Rate 22 Blood Pressure 162/93 H Pulse Oximetry 93 L 04/19/18 20:49 04/19/18 21:00 04/19/18 22:00 Temperature Pulse Rate 93 H 86 87 Respiratory Rate 16 Blood Pressure Pulse Oximetry 92 L 04/19/18 23:00 04/20/18 00:00 04/20/18 01:00 Temperature 97.9 F Pulse Rate 82 79 80 Respiratory Rate 20 Blood Pressure 133/85 Pulse Oximetry 94 L 04/20/18 02:00 04/20/18 03:00 04/20/18 04:00 Temperature 98 F Pulse Rate 79 81 83 Respiratory Rate 16 20 Blood Pressure 148/90 H Pulse Oximetry 92 L 94 L 04/20/18 05:00 04/20/18 06:00 04/20/18 07:00 Temperature Pulse Rate 85 86 78 Respiratory Rate Blood Pressure Pulse Oximetry 04/20/18 07:59 04/20/18 08:00 04/20/18 09:00 Temperature 97.7 F Pulse Rate 85 92 H 90 Respiratory Rate 18 14 Blood Pressure 148/90 H Pulse Oximetry 94 L 3 L 04/20/18 09:25 04/20/18 09:38 04/20/18 10:00 Temperature Pulse Rate 80 82 Respiratory Rate Blood Pressure 150/84 H Pulse Oximetry 95 95 04/20/18 11:00 04/20/18 11:45 04/20/18 12:00 Temperature 98.8 F Pulse Rate 85 82 80 Respiratory Rate 18 Blood Pressure 145/88 H Pulse Oximetry 92 L 04/20/18 13:00 Temperature Pulse Rate 74 Respiratory Rate Blood Pressure Pulse Oximetry Intake & Output 04/19/18 04/20/18 04/20/18 18:59 06:59 18:59 Intake Total 900 / 900 580 / 580 Output Total 2175 / 2175 1300 / 1300 Balance -1275 / -1275 -720 / -720 Weight 118.5 kg Intake: IV 200 / 200 100 / 100 Heparin/D5W 25,000 U/250 mL 25, 200 / 200 000 unit In 250 ml @ Per Protocol IV.CONT TITRATE PRN Rx #:[id number] Rocephin Inj 2,000 MG In NS Inj 100 / 100 100 ML @ 200 mls/hr IV.SIG Q24H DANIELLA Rx#:[id number] Oral 700 / 700 480 / 480 Output: Urine 2175 / 2175 1300 / 1300 Other: Date of Last Bowel Movement 04/19/18 04/19/18 # Bowel Movements 1 0 Narrative: GENERAL: Obese mid aged W/M Not in distress. SKIN: Skin warm/dry. CARDIOVASCULAR: Regular rate and rhythm. No murmur appreciated. RESPIRATORY: Occasional basal crackles and wheezing GASTROINTESTINAL: Abdomen soft, non-tender, nondistended. MUSCULOSKELETAL: No cyanosis. Trace edema. NEUROLOGICAL: Grossly nonfocal. Alert awake and oriented x3. Results - Labs CBC & Chem 7: 04/19/18 05:16 04/20/18 07:44 Laboratory Results - last 24 hr 04/19/18 04/19/18 04/20/18 17:07 20:28 07:44 Sodium 141 Potassium 3.9 Chloride 101 Carbon Dioxide 35.4 H Anion Gap 5 BUN 24 H Creatinine 0.95 Estimated GFR 85 L POC Glucose 146 H 149 H Random Glucose 136 H Calcium 9.1 D 04/20/18 04/20/18 08:06 11:40 Sodium Potassium Chloride Carbon Dioxide Anion Gap BUN Creatinine Estimated GFR POC Glucose 124 H 164 H Random Glucose Calcium Microbiology 04/17/18 18:00 Sputum - Expectorated Sputum Gram Stain - Final 04/17/18 18:00 Sputum - Expectorated Sputum Sputum Culture - Final Heavy growth normal respiratory tiffanie 04/16/18 12:05 Blood - Peripheral Aerobic Blood Culture - Preliminary No growth in 4 days 04/16/18 12:05 Blood - Peripheral Anaerobic Blood Culture - Preliminary No growth in 4 days 04/16/18 12:00 Blood - Peripheral Aerobic Blood Culture - Preliminary No growth in 4 days 04/16/18 12:00 Blood - Peripheral Anaerobic Blood Culture - Preliminary No growth in 4 days - Imaging Impressions Chest CT 04/20/18 00:00 CONCLUSION: 1. Bilateral multifocal airspace groundglass opacities. Given the distribution adjacent to vascular structures and enlargement of cardiac silhouette this likely represents congestive heart failure with pulmonary edema. Area of rounded airspace consolidation involving the right upper lobe abuts the pleura with focal thickening of the pleural surface. Findings are compatible with rounded atelectasis versus irregular parenchymal mass. Right-sided pleural effusion is noted above. Pulmonary Perfusion Imaging 04/20/18 00:00 CONCLUSION: 1. Multiple small matched perfusion and ventilation defects. Low probability of PE. - Procedures none Assessment and Plan - Assessment (1) Pneumonia Code(s): J18.9 - Pneumonia, unspecified organism Status: Acute (2) Heart failure of unknown etiology Code(s): I50.9 - Heart failure, unspecified Status: Acute (3) Acute respiratory distress Code(s): R06.03 - Acute respiratory distress Status: Acute (4) Hypoxemia Code(s): R09.02 - Hypoxemia Status: Acute (5) Hilar mass Code(s): R91.8 - Other nonspecific abnormal finding of lung field Status: Acute (6) D-dimer, elevated Code(s): R79.89 - Other specified abnormal findings of blood chemistry Status : Acute - Plan 1. Cont antibiotic.for 5 days 2. Nebs qid , duoneb 3. Cont O2 2 L 4. Continue Lasix 40 mg BID 5. PFT on Sunday 6. Up with help 7. CBC,BMP in am
--- NOTE | 2018-04-20 15:56 | P.PNCA ---
Subjective Interval history: Patient denies any CP, pressure, palpitations, dizziness or edema. States his SOB is getting much better. Medications and Allergies Allergies Allergy/AdvReac Type Severity Reaction Status Date / Time No Known Allergies Allergy Verified 04/16/18 16:36 Home Medications Medication Instructions Recorded Confirmed Type amlodipine 10 mg PO DAILY 04/16/18 04/16/18 History bumetanide 2 mg PO DAILY 04/16/18 04/16/18 History escitalopram oxalate [Lexapro] 20 mg PO DAILY 04/16/18 04/16/18 History hydralazine 50 mg PO BID 04/16/18 04/16/18 History isosorbide mononitrate 60 mg PO DAILY 04/16/18 04/16/18 History lisinopril 20 mg PO DAILY 04/16/18 04/16/18 History pravastatin 40 mg PO HS 04/16/18 04/16/18 History Active Medications: Active Medications Acetaminophen (Tylenol) 650 mg PO Q4H PRN PRN Reason: HEADACHE OR TEMP > 101 F Last Admin: 04/18/18 00:40 Dose: 650 mg Albuterol (Duoneb Neb ([facility])) 1 ampul NEB Q6HR NEB [facility] Last Admin: 04/20/18 09:36 Dose: 1 ampul Amlodipine Besylate (Norvasc) 10 mg PO DAILY [facility] Last Admin: 04/20/18 09:29 Dose: 10 mg Aspirin (Ecotrin) 325 mg PO DAILY [facility] Last Admin: 04/20/18 09:28 Dose: 325 mg Cefuroxime Axetil (Ceftin) 500 mg PO Q12HR [facility] Dextrose (D50w Vial) 50 ml IV.PUSH UNSCH PRN PRN Reason: PER HYPOGLYCEMIA PROTOCOL Enalaprilat (Vasotec Inj) 1.25 mg IV.PUSH Q6H PRN PRN Reason: SEE LABEL COMMENTS Escitalopram Oxalate (Lexapro) 20 mg PO DAILY [facility] Last Admin: 04/20/18 09:28 Dose: 20 mg Furosemide (Lasix) 80 mg PO BID@0900,1800 [facility] Glucagon (Glucagon Inj) 1 mg OTHER UNSCH PRN PRN Reason: for Hypoglycemia Protocol Heparin Sodium (Porcine) (Heparin Inj) 5,000 units SQ Q12HR [facility] Last Admin: 04/20/18 09:27 Dose: 5,000 units Hydralazine HCl (Apresoline) 50 mg PO BID [facility] Last Admin: 04/20/18 09:28 Dose: 50 mg Hydralazine HCl (Apresoline Inj) 10 mg IV.PUSH Q6H PRN PRN Reason: SEE LABEL COMMENTS Insulin Aspart (Novolog Insulin Correctional Sugar Inj) 0 unit SQ ACHS [facility]; Protocol Last Admin: 04/20/18 14:10 Dose: 1 unit Isosorbide Mononitrate (Imdur) 60 mg PO DAILY [facility] Last Admin: 04/20/18 09:28 Dose: 60 mg Lisinopril (Prinivil) 20 mg PO DAILY [facility] Last Admin: 04/20/18 09:29 Dose: 20 mg [facility] Last Admin: 04/20/18 09:28 Dose: 500 mg Metoprolol Tartrate (Lopressor) 12.5 mg PO BID [facility] Last Admin: 04/20/18 09:28 Dose: 12.5 mg Miscellaneous (Pill Splitter) 1 each OTHER UNSCH PRN PRN Reason: SEE LABEL COMMENTS Nitroglycerin (Nitrostat Sl) 0.4 mg SL Q5M PRN PRN Reason: CHEST PAIN Nitroglycerin (Nitro-Bid 2% Oint) 1 inch TOPICAL Q6HR [facility] Last Admin: 04/20/18 12:39 Dose: Not Given Potassium Chloride (Klor-Con 10) 30 meq PO BID [facility] Last Admin: 04/20/18 09:26 Dose: 30 meq Pravastatin Sodium (Pravachol) 40 mg PO HS [facility] Last Admin: 04/19/18 20:21 Dose: 40 mg Sodium Chloride (Ns Inj) 2 ml IV.FLUSH BID [facility] Last Admin: 04/20/18 10:13 Dose: 2 ml Sodium Chloride (Ns Inj) 2 ml IV.FLUSH UNSCH PRN PRN Reason: FLUSH AFTER USING IV ACCESS Physical Exam Vital signs: Vital Signs 04/19/18 16:00 04/19/18 17:00 04/19/18 17:02 Temperature 98.2 F Pulse Rate 82 85 87 Respiratory Rate 18 18 Blood Pressure 144/86 H Pulse Oximetry 93 L 04/19/18 18:00 04/19/18 19:00 04/19/18 20:00 Temperature 98.5 F Pulse Rate 90 90 92 H Respiratory Rate 22 Blood Pressure 162/93 H Pulse Oximetry 93 L 04/19/18 20:49 04/19/18 21:00 04/19/18 22:00 Temperature Pulse Rate 93 H 86 87 Respiratory Rate 16 Blood Pressure Pulse Oximetry 92 L 04/19/18 23:00 04/20/18 00:00 04/20/18 01:00 Temperature 97.9 F Pulse Rate 82 79 80 Respiratory Rate 20 Blood Pressure 133/85 Pulse Oximetry 94 L 04/20/18 02:00 04/20/18 03:00 04/20/18 04:00 Temperature 98 F Pulse Rate 79 81 83 Respiratory Rate 16 20 Blood Pressure 148/90 H Pulse Oximetry 92 L 94 L 04/20/18 05:00 04/20/18 06:00 04/20/18 07:00 Temperature Pulse Rate 85 86 78 Respiratory Rate Blood Pressure Pulse Oximetry 04/20/18 07:59 04/20/18 08:00 04/20/18 09:00 Temperature 97.7 F Pulse Rate 85 92 H 90 Respiratory Rate 18 14 Blood Pressure 148/90 H Pulse Oximetry 94 L 3 L 04/20/18 09:25 04/20/18 09:38 04/20/18 10:00 Temperature Pulse Rate 80 82 Respiratory Rate Blood Pressure 150/84 H Pulse Oximetry 95 95 04/20/18 11:00 04/20/18 11:45 04/20/18 12:00 Temperature 98.8 F Pulse Rate 85 82 80 Respiratory Rate 18 Blood Pressure 145/88 H Pulse Oximetry 92 L 92 L 04/20/18 13:00 04/20/18 15:31 04/20/18 15:34 Temperature 97.5 F L Pulse Rate 74 81 Respiratory Rate 18 Blood Pressure 126/72 Pulse Oximetry 93 L 93 L Intake & Output 04/19/18 04/20/18 04/20/18 18:59 06:59 18:59 Intake Total 900 / 900 580 / 580 Output Total 2175 / 2175 1300 / 1300 Balance -1275 / -1275 -720 / -720 Weight 118.5 kg Intake: IV 200 / 200 100 / 100 Heparin/D5W 25,000 U/250 mL 25, 200 / 200 000 unit In 250 ml @ Per Protocol IV.CONT TITRATE PRN Rx #:[id number] Rocephin Inj 2,000 MG In NS Inj 100 / 100 100 ML @ 200 mls/hr IV.SIG Q24H DANIELLA Rx#:[id number] Oral 700 / 700 480 / 480 Output: Urine 2175 / 2175 1300 / 1300 Other: Date of Last Bowel Movement 04/19/18 04/19/18 # Bowel Movements 1 0 - Constitutional no acute distress - Routine HEENT Exam Head: Present: normocephalic Eye: Present: PERRL ENT: Present: mucous membranes moist - Routine Neck Exam Present: full ROM - Routine Respiratory Exam Present: decreased breath sounds, rhonchi Comments: Rhonchi throughout - Routine Cardiovascular Exam Present: S1, S2. Absent: murmur, gallop, rubs - Routine Abdominal Exam Present: normoactive bowel sounds - Routine Extremities Exam Present: edema, full ROM, pulses intact, normal capillary refill. Absent: cyanosis, clubbing Comments: trace edema LE's - Routine Skin Exam Present: intact - Routine Neurological Exam Present: oriented X3 - Detailed Neurological Exam: Coma Scale Eye Opening: Spontaneous Verbal Response: Oriented Motor Response: Obey commands [place] Coma Scale Total: 15 - Routine Psychiatric Exam Present: normal affect Results 04/19/18 05:16 04/20/18 07:44 Coagulation 04/18/18 04/19/18 Range/Units 16:55 01:01 APTT 32.2 H 31.7 (23.4-31.7) sec CBC 04/19/18 Range/Units 05:16 WBC 11.7 H (4.0-11.0) th/mm3 RBC 4.38 L (4.50-5.90) mil/mm3 Hgb 13.2 (13.0-17.0) gm/dL Hct 38.7 L (39.0-51.0) % Plt Count 259 (150-450) th/mm3 Comprehensive Metabolic Panel 04/19/18 04/20/18 Range/Units 05:16 07:44 Sodium 136 141 (136-145) meq/L Potassium 3.6 3.9 (3.5-5.1) meq/L Chloride 99 101 (98-107) meq/L Carbon Dioxide 29.2 35.4 H (21.0-32.0) meq/L BUN 27 H 24 H (7-18) mg/dL Creatinine 0.92 0.95 (0.60-1.30) mg/dL Calcium 8.0 L 9.1 D (8.5-10.1) mg/dL Intake and Output 04/20/18 04/20/18 04/20/18 06:59 14:59 22:59 Intake Total 480 / 480 Output Total 1300 / 1300 Balance -820 / -820 Intake: Oral 480 / 480 Output: Urine 1300 / 1300 Other: Date of Last Bowel Movement 04/19/18 04/19/18 # Bowel Movements 0 Weight 118.5 kg - Imaging and Cardiology Imaging: Impressions Venous Doppler Study 04/18/18 00:00 CONCLUSION: 1. Negative for deep venous thrombosis Chest CT 04/20/18 00:00 CONCLUSION: 1. Bilateral multifocal airspace groundglass opacities. Given the distribution adjacent to vascular structures and enlargement of cardiac silhouette this likely represents congestive heart failure with pulmonary edema. Area of rounded airspace consolidation involving the right upper lobe abuts the pleura with focal thickening of the pleural surface. Findings are compatible with rounded atelectasis versus irregular parenchymal mass. Right-sided pleural effusion is noted above. Pulmonary Perfusion Imaging 04/20/18 00:00 CONCLUSION: 1. Multiple small matched perfusion and ventilation defects. Low probability of PE. Assessment and Plan - Assessment (1) Heart failure of unknown etiology Code(s): I50.9 - Heart failure, unspecified Status: Acute (2) Acute respiratory distress Code(s): R06.03 - Acute respiratory distress Status: Acute (3) Hypoxemia Code(s): R09.02 - Hypoxemia Status: Acute (4) D-dimer, elevated Code(s): R79.89 - Other specified abnormal findings of blood chemistry Status : Acute - Plan Patient is currently on RA, pulmonary evaluation in progress. We will continue with current CHF treatment plan and aggressive diuresis. SPECT done 04-18-18 which showed predominantly fixed defect involving lateral wall, lateral anterior wall and apex. No definite ischemia, global hypokinesis and akinesis in the lateral, anterior and apical duncan. Discussed with patient the importance of lifestyle modifications. Continue to increase activity as patient tolerated. We will continue to follow the patient during his hospitalization. The patient was seen and evaluated by Dr. Rushing who participated in care, management and decision making. - Attending Attestation Patient seen and examined. I reviewed and agree with the evaluation and plan as presented. Continue tx for CHF. Pulmonary evaluation in progress.
[2018-04-20] MEDS: Furosemide 80 MG Tablet PO SCH (17:34)
[2018-04-20] MEDS: Azithromycin 250 MG Tablet PO SCH (17:34)
--- NOTE | 2018-04-21 08:00 | P.PNIM ---
Subjective Interval history: Patient feels good, has been on room air. Denies any chest pain or shortness of breath, good urine output, lower extremity edema almost resolved. Physical Exam Vital signs: Last Vital Signs Temp 97.9 F 04/21/18 07:47 Pulse 83 04/21/18 07:47 Resp 18 04/21/18 07:47 BP 146/89 H 04/21/18 07:47 Pulse Ox 94 L 04/21/18 07:47 Intake & Output 04/19/18 04/20/18 04/21/18 04/22/18 06:59 06:59 06:59 06:59 Intake Total 1190 / 1190 1480 / 1480 1680 / 1680 Output Total 3445 / 3445 3475 / 3475 3870 / 3870 Balance -2254 / -2254 -1994 / -2189 / Weight 120 kg 118.5 kg 118.3 kg Narrative: GENERAL: Obese mid aged W/M Not in distress, on room air. SKIN: Skin warm/dry. CARDIOVASCULAR: Regular rate and rhythm. No murmur appreciated. RESPIRATORY: No crackles or wheezing. GASTROINTESTINAL: Abdomen soft, non-tender, nondistended. MUSCULOSKELETAL: No cyanosis. Trace edema. NEUROLOGICAL: Grossly nonfocal. Alert awake and oriented x3. Results Labs CBC & Chem 7: 04/19/18 05:16 04/21/18 07:09 Labs: Microbiology 04/17/18 18:00 Sputum - Expectorated Sputum Gram Stain - Final 04/17/18 18:00 Sputum - Expectorated Sputum Sputum Culture - Final Heavy growth normal respiratory tiffanie 04/16/18 12:05 Blood - Peripheral Aerobic Blood Culture - Preliminary No growth in 4 days 04/16/18 12:05 Blood - Peripheral Anaerobic Blood Culture - Preliminary No growth in 4 days 04/16/18 12:00 Blood - Peripheral Aerobic Blood Culture - Preliminary No growth in 4 days 04/16/18 12:00 Blood - Peripheral Anaerobic Blood Culture - Preliminary No growth in 4 days Imaging Imaging: Impressions Chest CT 04/20/18 00:00 CONCLUSION: 1. Bilateral multifocal airspace groundglass opacities. Given the distribution adjacent to vascular structures and enlargement of cardiac silhouette this likely represents congestive heart failure with pulmonary edema. Area of rounded airspace consolidation involving the right upper lobe abuts the pleura with focal thickening of the pleural surface. Findings are compatible with rounded atelectasis versus irregular parenchymal mass. Right-sided pleural effusion is noted above. Pulmonary Perfusion Imaging 04/20/18 00:00 CONCLUSION: 1. Multiple small matched perfusion and ventilation defects. Low probability of PE. Procedures Procedures: none Assessment and Plan (1) Heart failure of unknown etiology: Code(s): I50.9 - Heart failure, unspecified Status: Acute (2) Acute respiratory distress: Code(s): R06.03 - Acute respiratory distress Status: Acute (3) Hypoxemia: Code(s): R09.02 - Hypoxemia Status: Acute (4) D-dimer, elevated: Code(s): R79.89 - Other specified abnormal findings of blood chemistry Status: Acute Plan The patient is a 48-year-old male with a past medical history of CHF who is presenting to the hospital with worsening shortness of breath with dark mucus production associated with chest pain. BNP is 1016, patient ran out of diuretics, troponin III 0.16, EKG showed sinus rhythm with intraventricular conduction delay and PVCs. Cardiology consulted. Recommends aggressive diuresis, clinically improving. EF 30% with LVH. Adenosine stress test showed a fixed defect on the lateral wall which also involves the lateral anterior wall and apex, no ischemia. Left lower extremity Doppler done, negative for DVT. Repeat echo in 3 months on optimal management, may need AICD. Patient also being treated for pneumonia with dark colored mucus, chest x-ray showed vascular congestion and masslike opacity in the right hilum. CT scan of the chest done showed small right effusion, evidence of pulmonary edema, possible parenchymal mass versus atelectasis, discussed with Dr. Gee, he thinks that this is likely atelectasis from pneumonia. Blood culture negative, Gram stain showed mixed tiffanie with moderate WBCs, patient was started on ceftriaxone and was switched to cefuroxime. Blood glucose was uncontrolled, hemoglobin A1c 8.8 , patient was started on metformin. Acute on chronic systolic CHF with NSTEMI - Continue pravastatin, aspirin, metoprolol, continue lisinopril, nitrates. Nuclear stress test showed large predominantly fixed defect involving the lateral wall and lateral anterior wall and apex, no definite ischemia. Ejection fraction per nuclear scan 27%. Continue Lasix twice a day, switched to oral, BMP stable. Accelerated hypertension-improved, antihypertensives as above, continue lisinopril, Norvasc, nitrates, hydralazine as needed. Likely gram positive pneumonia- blood cultures negative, Gram stain showed mixed tiffanie, was on ceftriaxone, switched to cefuroxime, azithromycin added. Pulmonology following, continue duo nebs. Chest x-ray and CT chest as above. For PFTs tomorrow per pulmonary, on room air, discharged today, mandatory referral to pulmonary for PFTs. Hyponatremia-monitor, resolved. Noncompliance -The pt ran out of many medications weeks ago and has not bothered to get them refilled. Counseled. New-onset uncontrolled diabetes mellitus type II-hemoglobin A1c 8.8, continue sliding scale coverage, cont metformin, consider Jardiance prior to discharge. Diabetic education. Congestive hepatopathy-elevated AST secondary to heart failure. Patient also on statin. Monitor as outpatient. DVT PPx: Heparin subcutaneous. Not ready for discharge. On room air. For PFTs as outpatient. Progress Note: Quality VTE Deep Vein Thrombosis/Pulmonary Embolism Present on Admission: No
[2018-04-21 08:03] LABS: Anion Gap 6 meq/L (5-15); Blood Urea Nitrogen 19 mg/dL (7-18); Calcium 8.2 mg/dL (8.5-10.1); Carbon Dioxide 32.4 meq/L (21.0-32.0); Chloride 102 meq/L (98-107); Glomerular Filtration Rate Greater Than 89 mL/min (>89); Glucose,Random 125 mg/dL (74-106); Potassium 3.6 meq/L (3.5-5.1); Sodium 140 meq/L (136-145)
[2018-04-21] MEDS: Heparin - SQ 10,000 UNITS/ML Vial SQ SCH ×2 (09:21→20:14)
[2018-04-21] MEDS: amLODIPine 10 MG Tablet PO SCH (09:22)
[2018-04-21] MEDS: Isosorbide Mononitrate 60 MG ER 24HR Tablet (Imdur) PO SCH (09:22)
[2018-04-21] MEDS: Metoprolol Tartrate 25 MG Tablet PO SCH ×2 (09:22→20:14)
[2018-04-21] MEDS: Insulin NovoLOG Aspart Correctional Sugar Inj SQ SCH ×4 (09:22→20:23)
[2018-04-21] MEDS: hydrALAZINE 50 MG Tablet PO SCH ×2 (09:22→20:14)
[2018-04-21] MEDS: Furosemide 80 MG Tablet PO SCH ×2 (09:23→17:51)
[2018-04-21] MEDS: Lisinopril 20 MG Tablet PO SCH (09:23)
--- NOTE | 2018-04-21 10:37 | P.DS ---
DS: Providers Date of admission: 04/16/18 13:07 Primary care physician: UNKNOWN Consults: 04/16/18 14:21 Consult to Cardiology Routine Consulting Provider: Erickson Rushing Does the patient have a Research And Development Engineer who follows them?: Yes Preferred Insurance Customer Service Specialist:: Erickson Rushing Reason for Consultation: Elevated trop, CHF Notified:: Office Spoke with:: DAVID Date Notified:: 04/16/18 Time Notified:: 14:53 Ordering Provider: NAHUM 04/17/18 10:47 Consult to Pulmonology Routine Consulting Provider: Jose Porter V Preferred Gasoline Engine Inspector:: Jose Porter Reason for Consultation: increased SOB Notified:: Office Date Notified:: 04/17/18 Time Notified:: 10:53 Ordering Provider: SAWYER Brief History from admission: The patient is a 48-year-old male with a past medical history of CHF who is presenting to the hospital with worsening shortness of breath. The patient says that on he was working and had some [place] food when he started to feel increased shortness of breath and had some dark mucus production. The patient then developed upper chest pain that he likened to having a chest cold. He said that he had a panic attack that day. He said his symptoms gradually got better and he did well throughout the weekend. Starting yesterday he had worsening shortness of breath. Family noticed that he cannot sleep flat on his back and has to sleep elevated. The patient also endorses swelling in his feet. He has lost energy over the past few days. He does state that he has run out of several home medications including his water pill and his Lexapro. He says it has been a few weeks since he took those medications. He says he did have a bout of heart failure several years ago. He says that his breathing is currently improved. He says he has not had any further chest pain since last . He has not been following up with cardiology recently. DS: Diagnosis Discharge Diagnosis (1) Acute respiratory distress: Status: Acute (2) Hypoxemia: Status: Acute (3) NSTEMI (non-ST elevated myocardial infarction): Status: Acute Diagnosis: Principal (4) Systolic CHF, acute: Status: Acute Diagnosis: Principal (5) Pneumonia: Status: Acute Diagnosis: Principal (6) Accelerated hypertension: Status: Acute DS: Summary The patient is a 48-year-old male with a past medical history of CHF who is presenting to the hospital with worsening shortness of breath with dark mucus production associated with chest pain. BNP is 1016, patient ran out of diuretics, troponin III 0.16, EKG showed sinus rhythm with intraventricular conduction delay and PVCs. Cardiology consulted. Recommends aggressive diuresis, clinically improving. EF 30% with LVH. Adenosine stress test showed a fixed defect on the lateral wall which also involves the lateral anterior wall and apex, no ischemia. Left lower extremity Doppler done, negative for DVT. Repeat echo in 3 months on optimal management, may need AICD. Patient also being treated for pneumonia with dark colored mucus, chest x-ray showed vascular congestion and masslike opacity in the right hilum. CT scan of the chest done showed small right effusion, evidence of pulmonary edema, possible parenchymal mass versus atelectasis, discussed with Dr. Gee, he thinks that this is likely atelectasis from pneumonia. Blood culture negative, Gram stain showed mixed tiffanie with moderate WBCs, patient was started on ceftriaxone and was switched to cefuroxime. Blood glucose was uncontrolled, hemoglobin A1c 8.8 , patient was started on metformin. He will continue pravastatin, aspirin, metoprolol, continue lisinopril, nitrates for his systolic congestive heart failure. Continue Lasix twice a day. Bumex was stopped. He will finish his antibiotic to cefuroxime and azithromycin. He will need PFTs and pulmonary follow-up as outpatient. Time Spent with Patient Total time spent providing and/or coordinating discharge services: Quality: VTE Deep Vein Thrombosis/Pulmonary Embolism Present on Admission: No Results Procedures completed during hospitalization: none Labs on day of discharge: Labs from last 24 hours 04/21/18 04/21/18 04/20/18 07:45 07:09 20:28 Sodium 140 Potassium 3.6 Chloride 102 Carbon Dioxide 32.4 H Anion Gap 6 BUN 19 H Creatinine 0.80 Estimated GFR Greater than 89 POC Glucose 132 H 160 H Random Glucose 125 H Calcium 8.2 L D 04/20/18 04/20/18 17:12 11:40 Sodium Potassium Chloride Carbon Dioxide Anion Gap BUN Creatinine Estimated GFR POC Glucose 134 H 164 H Random Glucose Calcium Preliminary micro results at discharge 04/16/18 12:05 Aerobic Blood Culture - Preliminary Blood - Peripheral No growth in 4 days Anaerobic Blood Culture - Preliminary No growth in 4 days 04/16/18 12:00 Aerobic Blood Culture - Preliminary Blood - Peripheral No growth in 4 days Anaerobic Blood Culture - Preliminary No growth in 4 days Impressions ITS Impressions Chest X-Ray 04/16/18 10:44 CONCLUSION: Masslike opacity right hilum Cardiomegaly with interstitial vascular congestion. Venous Doppler Study 04/18/18 00:00 CONCLUSION: 1. Negative for deep venous thrombosis Myocardial Perfusion Scan Nuc Med 04/18/18 08:00 CONCLUSION: 1. Large predominantly fixed defect involving the lateral wall which also involves the lateral anterior wall and apex. No definite ischemia. 2. Markedly decreased calculated ejection fraction 27% with global hypokinesis and akinesis in the lateral, anterior and apical duncan. Chest CT 04/20/18 00:00 CONCLUSION: 1. Bilateral multifocal airspace groundglass opacities. Given the distribution adjacent to vascular structures and enlargement of cardiac silhouette this likely represents congestive heart failure with pulmonary edema. Area of rounded airspace consolidation involving the right upper lobe abuts the pleura with focal thickening of the pleural surface. Findings are compatible with rounded atelectasis versus irregular parenchymal mass. Right-sided pleural effusion is noted above. Pulmonary Perfusion Imaging 04/20/18 00:00 CONCLUSION: 1. Multiple small matched perfusion and ventilation defects. Low probability of PE. Discharge Plan Discharge Disposition Patient Disposition: 01 Discharge Home Discharge Condition Condition: Fair Discharge Order Discharge Orders: Discharge Order (Routine); Ordered 04/21/18 Ordered By: Tyron Barry Discharge Details Anticipated Discharge Date: 04/21/18 Discharge Comment: d/c after cleared by cardiology and pulmonary Physicians Team ED Provider: Alexey Palencia Primary Care Provider: UNKNOWN, Attending Provider: Tyron Barry Other Providers: Erickson Rushing ; Jose Porter V Rxs /Orders / Referrals /Forms Prescriptions: New metformin [Glucophage] 500 mg Tablet 500 mg PO BIDPC Qty: 60 RF: 0 azithromycin 250 mg Tablet 500 mg PO DAILY@1800 Qty: 4 RF: 0 potassium chloride [Klor-Con 10] 10 mEq Tablet Extended Release 30 meq PO BID Qty: 60 RF: 0 aspirin 325 mg Tablet,Delayed Release (Dr/Ec) 325 mg PO DAILY Qty: 30 RF: 0 furosemide 80 mg Tablet 80 mg PO BID@0900,1800 Qty: 60 RF: 0 cefuroxime axetil 500 mg Tablet 500 mg PO Q12HR Qty: 6 RF: 0 metoprolol tartrate 25 mg Tablet 12.5 mg PO BID Qty: 60 RF: 0 albuterol sulfate [Ventolin HFA] 90 mcg/actuation HFA aerosol inhaler 1 inh INHALATION Q6H PRN (Reason: shortness of breath) Qty: 8.5 RF: 0 Continue pravastatin 40 mg Tablet 40 mg PO HS RF: 0 lisinopril 20 mg Tablet 20 mg PO DAILY RF: 0 isosorbide mononitrate 60 mg Tablet Extended Release 24 Hr 60 mg PO DAILY RF: 0 amlodipine 10 mg Tablet 10 mg PO DAILY RF: 0 hydralazine 50 mg Tablet 50 mg PO BID RF: 0 escitalopram oxalate [Lexapro] 20 mg Tablet 20 mg PO DAILY RF: 0 Discontinued bumetanide 2 mg Tablet 2 mg PO DAILY RF: 0 Referrals: UNKNOWN, [Primary Care Provider] - See Instructions Jose Porter MD [Physician] - See Instructions (1 week ) Erickson Rushing MD [Physician] - See Instructions (1 week) Discharge Instructions Patient Printed Instructions: Foot Care for People with Diabetes (DC), Type 2 Diabetes in Adults (DC), Managing Diabetes During Sick Days (DC) Additional Instructions: Health Care Community Resource Services [facility] ([phone]) [facility] ([phone]) [facility] ([phone]) [facility] ([phone]) Discharge Interventions Interventions: Discharge Planning - Case Management Last Done: 04/19/18 16:25 Status ED Status: Left Department
[2018-04-21] MEDS ORDERED: Lisinopril 20 MG Tablet PO SCH (14:46)
--- NOTE | 2018-04-21 15:10 | P.PNCA ---
Subjective Interval history: Patient denies any CP, pressure, palpitations, dizziness or SOB. Patient states he is feeling much better and has been walking the halls. Medications and Allergies Allergies Allergy/AdvReac Type Severity Reaction Status Date / Time No Known Allergies Allergy Verified 04/16/18 16:36 Home Medications Medication Instructions Recorded Confirmed Type amlodipine 10 mg PO DAILY 04/16/18 04/16/18 History bumetanide 2 mg PO DAILY 04/16/18 04/16/18 History escitalopram oxalate [Lexapro] 20 mg PO DAILY 04/16/18 04/16/18 History hydralazine 50 mg PO BID 04/16/18 04/16/18 History isosorbide mononitrate 60 mg PO DAILY 04/16/18 04/16/18 History lisinopril 20 mg PO DAILY 04/16/18 04/16/18 History pravastatin 40 mg PO HS 04/16/18 04/16/18 History Active Medications: Active Medications Acetaminophen (Tylenol) 650 mg PO Q4H PRN PRN Reason: HEADACHE OR TEMP > 101 F Last Admin: 04/18/18 00:40 Dose: 650 mg Albuterol (Duoneb Neb ([facility])) 1 ampul NEB Q6HR NEB [facility] Last Admin: 04/21/18 09:47 Dose: 1 ampul Amlodipine Besylate (Norvasc) 10 mg PO DAILY [facility] Last Admin: 04/21/18 09:22 Dose: 10 mg Aspirin (Ecotrin) 325 mg PO DAILY [facility] Last Admin: 04/21/18 09:22 Dose: 325 mg Azithromycin (Zithromax) 500 mg PO DAILY@1800 [facility] Stop: 04/25/18 17:59 Last Admin: 04/20/18 17:34 Dose: 500 mg Cefuroxime Axetil (Ceftin) 500 mg PO Q12HR [facility] Last Admin: 04/21/18 09:23 Dose: 500 mg Dextrose (D50w Vial) 50 ml IV.PUSH UNSCH PRN PRN Reason: PER HYPOGLYCEMIA PROTOCOL Enalaprilat (Vasotec Inj) 1.25 mg IV.PUSH Q6H PRN PRN Reason: SEE LABEL COMMENTS Escitalopram Oxalate (Lexapro) 20 mg PO DAILY [facility] Last Admin: 04/21/18 09:23 Dose: 20 mg Furosemide (Lasix) 80 mg PO BID@0900,1800 [facility] Last Admin: 04/21/18 09:23 Dose: 80 mg Glucagon (Glucagon Inj) 1 mg OTHER UNSCH PRN PRN Reason: for Hypoglycemia Protocol Heparin Sodium (Porcine) (Heparin Inj) 5,000 units SQ Q12HR [facility] Last Admin: 04/21/18 09:21 Dose: 5,000 units Hydralazine HCl (Apresoline) 50 mg PO BID [facility] Last Admin: 04/21/18 09:22 Dose: 50 mg Hydralazine HCl (Apresoline Inj) 10 mg IV.PUSH Q6H PRN PRN Reason: SEE LABEL COMMENTS Insulin Aspart (Novolog Insulin Correctional Sugar Inj) 0 unit SQ ACHS [facility]; Protocol Last Admin: 04/21/18 09:22 Dose: Not Given Isosorbide Mononitrate (Imdur) 60 mg PO DAILY [facility] Last Admin: 04/21/18 09:22 Dose: 60 mg Lisinopril (Prinivil) 40 mg PO DAILY [facility] Last Admin: 04/21/18 09:23 Dose: 500 mg Metoprolol Tartrate (Lopressor) 25 mg PO BID [facility] Miscellaneous (Pill Splitter) 1 each OTHER UNSCH PRN PRN Reason: SEE LABEL COMMENTS Nitroglycerin (Nitrostat Sl) 0.4 mg SL Q5M PRN PRN Reason: CHEST PAIN Nitroglycerin (Nitro-Bid 2% Oint) 1 inch TOPICAL Q6HR [facility] Last Admin: 04/21/18 05:31 Dose: Not Given Potassium Chloride (Klor-Con 10) 30 meq PO BID [facility] Last Admin: 04/21/18 09:22 Dose: 30 meq Pravastatin Sodium (Pravachol) 40 mg PO HS [facility] Last Admin: 04/20/18 20:21 Dose: 40 mg Sodium Chloride (Ns Inj) 2 ml IV.FLUSH BID [facility] Last Admin: 04/21/18 09:24 Dose: 2 ml Sodium Chloride (Ns Inj) 2 ml IV.FLUSH UNSCH PRN PRN Reason: FLUSH AFTER USING IV ACCESS Physical Exam Vital signs: Vital Signs 04/20/18 15:31 18 15:34 04/20/18 16:00 Temperature 97.5 F L Pulse Rate 81 78 Respiratory Rate 18 Blood Pressure 126/72 Pulse Oximetry 93 L 93 L 04/20/18 17:00 04/20/18 18:00 04/20/18 19:00 Temperature Pulse Rate 80 76 75 Respiratory Rate Blood Pressure Pulse Oximetry 04/20/18 20:00 04/20/18 21:00 04/20/18 21:34 Temperature 98 F Pulse Rate 82 79 85 Respiratory Rate 20 20 Blood Pressure 149/89 H Pulse Oximetry 94 L 95 04/20/18 22:00 04/20/18 23:00 04/20/18 23:59 Temperature Pulse Rate 76 73 77 Respiratory Rate Blood Pressure Pulse Oximetry 04/21/18 00:00 04/21/18 01:00 04/21/18 02:00 Temperature 98.3 F Pulse Rate 77 74 73 Respiratory Rate 20 Blood Pressure 130/76 Pulse Oximetry 95 04/21/18 03:00 04/21/18 04:00 04/21/18 04:25 Temperature 98.2 F Pulse Rate 74 76 81 Respiratory Rate 18 18 Blood Pressure 149/97 H Pulse Oximetry 93 L 04/21/18 05:00 04/21/18 06:00 04/21/18 07:00 Temperature Pulse Rate 72 71 73 Respiratory Rate Blood Pressure Pulse Oximetry 04/21/18 07:47 04/21/18 08:00 04/21/18 09:00 Temperature 97.9 F Pulse Rate 83 86 84 Respiratory Rate 18 14 Blood Pressure 146/89 H Pulse Oximetry 94 L 93 L 04/21/18 10:00 04/21/18 11:00 04/21/18 12:00 Temperature 98.1 F Pulse Rate 86 84 80 Respiratory Rate 18 Blood Pressure 119/70 Pulse Oximetry 94 L 04/21/18 13:00 04/21/18 14:00 Temperature Pulse Rate 78 80 Respiratory Rate Blood Pressure Pulse Oximetry Intake & Output 04/20/18 04/21/18 04/21/18 18:59 06:59 18:59 Intake Total 1200 / 1200 480 / 480 Output Total 2420 / 2420 1450 / 1450 Balance -1220 / -1220 -970 / -970 Weight 118.3 kg Intake: Oral 1200 / 1200 480 / 480 Output: Urine 2420 / 2420 1450 / 1450 Other: Date of Last Bowel Movement 04/19/18 04/19/18 04/20/18 # Bowel Movements 0 - Constitutional no acute distress - Routine HEENT Exam Head: Present: normocephalic Eye: Present: PERRL ENT: Present: mucous membranes moist - Routine Neck Exam Present: full ROM - Routine Respiratory Exam Present: CTA bilaterally - Routine Cardiovascular Exam Present: S1, S2. Absent: murmur, gallop, rubs - Routine Abdominal Exam Present: normoactive bowel sounds - Routine Extremities Exam Present: edema, full ROM, pulses intact, normal capillary refill. Absent: cyanosis, clubbing Comments: trace edema - Routine Skin Exam Present: intact - Routine Neurological Exam Present: oriented X3 - Detailed Neurological Exam: Coma Scale Eye Opening: Spontaneous - Routine Psychiatric Exam Present: normal affect Results 04/19/18 05:16 04/21/18 07:09 Comprehensive Metabolic Panel 04/20/18 04/21/18 Range/Units 07:44 07:09 Sodium 141 140 (136-145) meq/L Potassium 3.9 3.6 (3.5-5.1) meq/L Chloride 101 102 (98-107) meq/L Carbon Dioxide 35.4 H 32.4 H (21.0-32.0) meq/L BUN 24 H 19 H (7-18) mg/dL Creatinine 0.95 0.80 (0.60-1.30) mg/dL Calcium 9.1 D 8.2 L D (8.5-10.1) mg/dL Intake and Output 04/21/18 04/21/18 04/21/18 06:59 14:59 22:59 Intake Total 480 / 480 Output Total 1450 / 1450 Balance -970 / -970 Intake: Oral 480 / 480 Output: Urine 1450 / 1450 Other: Date of Last Bowel Movement 04/19/18 04/20/18 # Bowel Movements 0 Weight 118.3 kg - Imaging and Cardiology Imaging: Impressions Chest CT 04/20/18 00:00 CONCLUSION: 1. Bilateral multifocal airspace groundglass opacities. Given the distribution adjacent to vascular structures and enlargement of cardiac silhouette this likely represents congestive heart failure with pulmonary edema. Area of rounded airspace consolidation involving the right upper lobe abuts the pleura with focal thickening of the pleural surface. Findings are compatible with rounded atelectasis versus irregular parenchymal mass. Right-sided pleural effusion is noted above. Pulmonary Perfusion Imaging 12/15/18 00:00 CONCLUSION: 1. Multiple small matched perfusion and ventilation defects. Low probability of PE. Assessment and Plan - Assessment (1) Heart failure of unknown etiology Code(s): I50.9 - Heart failure, unspecified Status: Acute (2) Acute respiratory distress Code(s): R06.03 - Acute respiratory distress Status: Acute (3) Hypoxemia Code(s): R09.02 - Hypoxemia Status: Acute (4) D-dimer, elevated Code(s): R79.89 - Other specified abnormal findings of blood chemistry Status : Acute - Plan No new cardiac issues at this time. Continue and titrate tx for CHF. We will increase his Lisinopril to 40mg PO QD and metoprolol to 25mg PO BID. Re-enforced the importance of lifestyle modifications, patient verbalized understanding. Continue to increase activity as patient tolerates. Pulmonary evaluation in progress. We will continue to monitor patient during hospitalization The patient was seen and evaluated by Dr. Rushing who participated in care, management and decision making. - Attending Attestation Patient seen and examined. I reviewed and agree with the evaluation and plan as presented. Continue and titrate tx for CHF. Overall improved. Increase activity , PT.
--- NOTE | 2018-04-21 16:09 | P.PN ---
Subjective Interval history: He is better. No fever. Off O2 sats 94. Will go home. Physical Exam Vital signs: Vital Signs 04/20/18 17:00 04/20/18 18:00 04/20/18 19:00 Temperature Pulse Rate 80 76 75 Respiratory Rate Blood Pressure Pulse Oximetry 04/20/18 20:00 04/20/18 21:00 04/20/18 21:34 Temperature 98 F Pulse Rate 82 79 85 Respiratory Rate 20 20 Blood Pressure 149/89 H Pulse Oximetry 94 L 95 04/20/18 22:00 04/20/18 23:00 04/20/18 23:59 Temperature Pulse Rate 76 73 77 Respiratory Rate Blood Pressure Pulse Oximetry 04/21/18 00:00 04/21/18 01:00 04/21/18 02:00 Temperature 98.3 F Pulse Rate 77 74 73 Respiratory Rate 20 Blood Pressure 130/76 Pulse Oximetry 95 04/21/18 03:00 04/21/18 04:00 04/21/18 04:25 Temperature 98.2 F Pulse Rate 74 76 81 Respiratory Rate 18 18 Blood Pressure 149/97 H Pulse Oximetry 93 L 04/21/18 05:00 04/21/18 06:00 04/21/18 07:00 Temperature Pulse Rate 72 71 73 Respiratory Rate Blood Pressure Pulse Oximetry 04/21/18 07:47 04/21/18 08:00 04/21/18 09:00 Temperature 97.9 F Pulse Rate 83 86 84 Respiratory Rate 18 14 Blood Pressure 146/89 H Pulse Oximetry 94 L 93 L 04/21/18 10:00 04/21/18 11:00 04/21/18 12:00 Temperature 98.1 F Pulse Rate 86 84 80 Respiratory Rate 18 Blood Pressure 119/70 Pulse Oximetry 94 L 04/21/18 13:00 04/21/18 14:00 04/21/18 15:00 Temperature Pulse Rate 78 80 81 Respiratory Rate Blood Pressure Pulse Oximetry Intake & Output 04/20/18 04/21/18 04/21/18 18:59 06:59 18:59 Intake Total 1200 / 1200 480 / 480 Output Total 2420 / 2420 1450 / 1450 Balance -1220 / -1220 -970 / -970 Weight 118.3 kg Intake: Oral 1200 / 1200 480 / 480 Output: Urine 2420 / 2420 1450 / 1450 Other: Date of Last Bowel Movement 04/19/18 04/19/18 04/20/18 # Bowel Movements 0 Narrative: GENERAL: Obese mid aged W/M Not in distress. SKIN: Skin warm/dry. CARDIOVASCULAR: Regular rate and rhythm. No murmur appreciated. RESPIRATORY: No crackles or wheezing. GASTROINTESTINAL: Abdomen soft, non-tender, nondistended. MUSCULOSKELETAL: No cyanosis. Trace edema. NEUROLOGICAL: Grossly nonfocal. Alert awake and oriented x3. Results - Labs CBC & Chem 7: 04/19/18 05:16 04/21/18 07:09 Laboratory Results - last 24 hr 04/20/18 04/20/18 04/21/18 17:12 20:28 07:09 Sodium 140 Potassium 3.6 Chloride 102 Carbon Dioxide 32.4 H Anion Gap 6 BUN 19 H Creatinine 0.80 Estimated GFR Greater than 89 POC Glucose 134 H 160 H Random Glucose 125 H Calcium 8.2 L D 04/21/18 04/21/18 07:45 12:19 Sodium Potassium Chloride Carbon Dioxide Anion Gap BUN Creatinine Estimated GFR POC Glucose 132 H 137 H Random Glucose Calcium Microbiology 04/16/18 12:05 Blood - Peripheral Aerobic Blood Culture - Final No growth in 5 days 04/16/18 12:05 Blood - Peripheral Anaerobic Blood Culture - Final No growth in 5 days 04/16/18 12:00 Blood - Peripheral Aerobic Blood Culture - Final No growth in 5 days 04/16/18 12:00 Blood - Peripheral Anaerobic Blood Culture - Final No growth in 5 days 04/17/18 18:00 Sputum - Expectorated Sputum Gram Stain - Final 04/17/18 18:00 Sputum - Expectorated Sputum Sputum Culture - Final Heavy growth normal respiratory tiffanie - Procedures none Assessment and Plan - Assessment (1) Pneumonia Code(s): J18.9 - Pneumonia, unspecified organism Status: Acute (2) Heart failure of unknown etiology Code(s): I50.9 - Heart failure, unspecified Status: Acute (3) Acute respiratory distress Code(s): R06.03 - Acute respiratory distress Status: Acute (4) Hypoxemia Code(s): R09.02 - Hypoxemia Status: Acute (5) Hilar mass Code(s): R91.8 - Other nonspecific abnormal finding of lung field Status: Acute (6) D-dimer, elevated Code(s): R79.89 - Other specified abnormal findings of blood chemistry Status : Acute - Plan 1. Cont Ceftin 500 mg BID X 5 days 2. D/C Nebs and add ventolin HFA , 2 puffs TID PRN 3. D/C O2 4. Continue Lasix 40 mg BID 5. PFT on Sunday 6.OK to go home on PO Meds 7. Will see as OP in 2 weeks
[2018-04-21] MEDS: Azithromycin 250 MG Tablet PO SCH (17:51)
[2018-04-21] MEDS ORDERED: Budesonide-Formoterol 160/4.5 MCG 6 GM Inhaler INH SCH (21:00)
[2018-04-22] MEDS: Isosorbide Mononitrate 60 MG ER 24HR Tablet (Imdur) PO SCH (08:10)
[2018-04-22] MEDS: hydrALAZINE 50 MG Tablet PO SCH (08:10)
[2018-04-22] MEDS: Metoprolol Tartrate 25 MG Tablet PO SCH (08:10)
[2018-04-22] MEDS: Furosemide 80 MG Tablet PO SCH (08:10)
[2018-04-22] MEDS: amLODIPine 10 MG Tablet PO SCH (08:11)
[2018-04-22] MEDS: Heparin - SQ 10,000 UNITS/ML Vial SQ SCH (08:11)
--- NOTE | 2018-04-22 09:47 | P.PNIM ---
Subjective Interval history: Patient says he is feeling well. Denies any chest pain or shortness of breath. Would like to go home. Physical Exam Vital signs: Vital Signs 04/21/18 10:00 04/21/18 11:00 04/21/18 12:00 Temperature 98.1 F Pulse Rate 86 84 80 Respiratory Rate 18 Blood Pressure 119/70 Pulse Oximetry 94 L 04/21/18 13:00 04/21/18 14:00 04/21/18 15:00 Temperature Pulse Rate 78 80 81 Respiratory Rate Blood Pressure Pulse Oximetry 04/21/18 16:00 04/21/18 17:00 04/21/18 18:00 Temperature 98.4 F Pulse Rate 84 80 82 Respiratory Rate 18 Blood Pressure 125/75 Pulse Oximetry 94 L 04/21/18 19:00 04/21/18 20:00 04/21/18 21:00 Temperature 98.1 F Pulse Rate 91 H 98 H 87 Respiratory Rate 20 Blood Pressure 141/86 H Pulse Oximetry 95 04/21/18 22:00 04/21/18 23:00 04/22/18 00:00 Temperature 98.3 F Pulse Rate 85 82 77 Respiratory Rate 18 Blood Pressure 131/76 Pulse Oximetry 95 04/22/18 01:00 04/22/18 03:00 04/22/18 04:00 Temperature 98.2 F Pulse Rate 81 77 74 Respiratory Rate 18 Blood Pressure 152/95 H Pulse Oximetry 94 L 04/22/18 05:00 04/22/18 06:00 04/22/18 07:00 Temperature Pulse Rate 76 74 72 Respiratory Rate Blood Pressure Pulse Oximetry 04/22/18 08:00 04/22/18 09:00 Temperature 98.5 F Pulse Rate 74 76 Respiratory Rate 18 Blood Pressure 154/99 H Pulse Oximetry 94 L Intake & Output 04/21/18 04/22/18 04/22/18 18:59 06:59 18:59 Intake Total 1400 / 1400 480 / 480 Output Total 182 / 5 1999 Balance -425 / -425 -1520 / -1520 Weight 115 kg Intake: Oral 1400 / 1400 480 / 480 Output: Urine 1824 / 1825 1999 Other: Date of Last Bowel Movement 04/21/18 04/21/18 # Bowel Movements 0 Narrative: GENERAL: Patient sitting up in chair eating breakfast. Alert and oriented x3. SKIN: Warm and dry. HEAD: Normocephalic. EYES: No scleral icterus. No injection or drainage. NECK: Supple, trachea midline. No JVD. CARDIOVASCULAR: Regular rate and rhythm without murmurs, gallops, or rubs. RESPIRATORY: Breath sounds equal bilaterally. No accessory muscle use. GASTROINTESTINAL: Abdomen soft, non-tender, nondistended. MUSCULOSKELETAL: No cyanosis, or edema. BACK: Nontender without obvious deformity. No CVA tenderness. Results - Labs CBC & Chem 7: 04/19/18 05:16 04/21/18 07:09 Laboratory Results - last 24 hr 04/21/18 04/21/18 04/21/18 12:19 16:58 20:17 POC Glucose 137 H 120 H 144 H 04/22/18 07:44 POC Glucose 129 H Microbiology 04/21/18 14:50 Stool Stool Occult Blood (KOBE) - Final Hemoccult negative 04/16/18 12:05 Blood - Peripheral Aerobic Blood Culture - Final No growth in 5 days 04/16/18 12:05 Blood - Peripheral Anaerobic Blood Culture - Final No growth in 5 days 04/16/18 12:00 Blood - Peripheral Aerobic Blood Culture - Final No growth in 5 days 04/16/18 12:00 Blood - Peripheral Anaerobic Blood Culture - Final No growth in 5 days - Procedures none Assessment and Plan - Assessment (1) Acute respiratory distress Code(s): R06.03 - Acute respiratory distress Status: Acute (2) Hypoxemia Code(s): R09.02 - Hypoxemia Status: Acute (3) NSTEMI (non-ST elevated myocardial infarction) Code(s): I21.4 - Non-ST elevation (NSTEMI) myocardial infarction Status: Acute (4) Systolic CHF, acute Code(s): I50.21 - Acute systolic (congestive) heart failure Status: Acute (5) Pneumonia Code(s): J18.9 - Pneumonia, unspecified organism Status: Acute (6) Accelerated hypertension Code(s): I10 - Essential (primary) hypertension Status: Acute - Plan The patient is a 48-year-old male with a past medical history of CHF who is presenting to the hospital with worsening shortness of breath with dark mucus production associated with chest pain. BNP is 1016, patient ran out of diuretics, troponin III 0.16, EKG showed sinus rhythm with intraventricular conduction delay and PVCs. Cardiology consulted. Recommends aggressive diuresis, clinically improving. EF 30% with LVH. Adenosine stress test showed a fixed defect on the lateral wall which also involves the lateral anterior wall and apex, no ischemia. Left lower extremity Doppler done, negative for DVT. Repeat echo in 3 months on optimal management, may need AICD. Patient also being treated for pneumonia with dark colored mucus, chest x-ray showed vascular congestion and masslike opacity in the right hilum. CT scan of the chest done showed small right effusion, evidence of pulmonary edema, possible parenchymal mass versus atelectasis, discussed with Dr. Gee, he thinks that this is likely atelectasis from pneumonia. Blood culture negative, Gram stain showed mixed tiffanie with moderate WBCs, patient was started on ceftriaxone and was switched to cefuroxime. Blood glucose was uncontrolled, hemoglobin A1c 8.8 , patient was started on metformin. //Acute on chronic systolic CHF with NSTEMI - Continue pravastatin, aspirin, metoprolol, continue lisinopril, nitrates. Nuclear stress test showed large predominantly fixed defect involving the lateral wall and lateral anterior wall and apex, no definite ischemia. Ejection fraction per nuclear scan 27%. Continue Lasix twice a day, switched to oral, BMP stable. = 04/22. Adjust dose of metoprolol to 50 mg by mouth twice daily. //Accelerated hypertension-improved, antihypertensives as above, continue lisinopril, Norvasc, nitrates, hydralazine as needed. //Likely gram positive pneumonia- blood cultures negative, Gram stain showed mixed tiffanie, was on ceftriaxone, switched to cefuroxime, azithromycin added. Pulmonology following, continue duo nebs. Chest x-ray and CT chest as above. For PFTs tomorrow per pulmonary, on room air, discharged today, mandatory referral to pulmonary for PFTs. //Hyponatremia-monitor, resolved. //Noncompliance -The pt ran out of many medications weeks ago and has not bothered to get them refilled. Counseled. //New-onset uncontrolled diabetes mellitus type II-hemoglobin A1c 8.8, continue sliding scale coverage, cont metformin, consider Jardiance prior to discharge. Diabetic education. //Congestive hepatopathy-elevated AST secondary to heart failure. Patient also on statin. Monitor as outpatient. //DVT PPx: Heparin subcutaneous. Discussed Condition With: Patient, nurse Discharge Planning: Discharge pending cardiology clearance.
--- NOTE | 2018-04-22 13:29 | P.PNCA ---
Subjective Interval history: Patient was evaluated this AM. Patient denied any CP, pressure, palpitations, dizziness, edema or SOB. Patient states, he is feeling so much better. Medications and Allergies Allergies Allergy/AdvReac Type Severity Reaction Status Date / Time No Known Allergies Allergy Verified 04/16/18 16:36 Home Medications Medication Instructions Recorded Confirmed Type amlodipine 10 mg PO DAILY 04/16/18 04/16/18 History escitalopram oxalate [Lexapro] 20 mg PO DAILY 04/16/18 04/16/18 History hydralazine 50 mg PO BID 04/16/18 04/16/18 History isosorbide mononitrate 60 mg PO DAILY 04/16/18 04/16/18 History pravastatin 40 mg PO HS 04/16/18 04/16/18 History Physical Exam Vital signs: Vital Signs 04/21/18 14:00 04/21/18 15:00 04/21/18 16:00 Temperature 98.4 F Pulse Rate 80 81 84 Respiratory Rate 18 Blood Pressure 125/75 Pulse Oximetry 94 L 04/21/18 17:00 04/21/18 18:00 04/21/18 19:00 Temperature Pulse Rate 80 82 91 H Respiratory Rate Blood Pressure Pulse Oximetry 04/21/18 20:00 04/21/18 21:00 04/21/18 22:00 Temperature 98.1 F Pulse Rate 98 H 87 85 Respiratory Rate 20 Blood Pressure 141/86 H Pulse Oximetry 95 04/21/18 23:00 04/22/18 00:00 04/22/18 01:00 Temperature 98.3 F Pulse Rate 82 77 81 Respiratory Rate 18 Blood Pressure 131/76 Pulse Oximetry 95 04/22/18 03:00 04/22/18 04:00 04/22/18 05:00 Temperature 98.2 F Pulse Rate 77 74 76 Respiratory Rate 18 Blood Pressure 152/95 H Pulse Oximetry 94 L 04/22/18 06:00 04/22/18 07:00 04/22/18 08:00 Temperature 98.5 F Pulse Rate 74 72 74 Respiratory Rate 18 Blood Pressure 154/99 H Pulse Oximetry 94 L 04/22/18 09:00 04/22/18 10:00 Temperature Pulse Rate 76 78 Respiratory Rate Blood Pressure Pulse Oximetry Intake & Output 04/21/18 04/22/18 04/22/18 18:59 06:59 18:59 Intake Total 1400 / 1400 480 / 480 Output Total 1824 Balance -425 / -425 -1520 / -1520 Weight 115 kg Intake: Oral 1400 / 1400 480 / 480 Output: Urine 1824 Other: Date of Last Bowel Movement 04/21/18 04/21/18 # Bowel Movements 0 - Constitutional no acute distress - Routine HEENT Exam Head: Present: normocephalic Eye: Present: PERRL ENT: Present: mucous membranes moist - Routine Neck Exam Present: full ROM - Routine Respiratory Exam Present: CTA bilaterally - Routine Cardiovascular Exam Present: S1, S2. Absent: murmur, gallop, rubs - Routine Abdominal Exam Present: normoactive bowel sounds - Routine Extremities Exam Present: edema, full ROM, pulses intact, normal capillary refill. Absent: cyanosis, clubbing Comments: trace LE's - Routine Skin Exam Present: intact - Routine Neurological Exam Present: oriented X3 - Detailed Neurological Exam: Coma Scale Eye Opening: Spontaneous Verbal Response: Oriented Motor Response: Obey commands Dada Coma Scale Total: 15 - Routine Psychiatric Exam Present: normal affect Results 04/19/18 05:16 04/21/18 07:09 Comprehensive Metabolic Panel 04/21/18 Range/Units 07:09 Sodium 140 (136-145) meq/L Potassium 3.6 (3.5-5.1) meq/L Chloride 102 (98-107) meq/L Carbon Dioxide 32.4 H (21.0-32.0) meq/L BUN 19 H (7-18) mg/dL Creatinine 0.80 (0.60-1.30) mg/dL Calcium 8.2 L D (8.5-10.1) mg/dL Intake and Output 04/21/18 04/22/18 04/22/18 22:59 06:59 14:59 Intake Total 1400 / 1400 480 / 480 Output Total 1824 Balance -425 / -425 -1520 / -1520 Intake: Oral 1400 / 1400 480 / 480 Output: Urine 1824 Other: Date of Last Bowel Movement 04/21/18 04/21/18 # Bowel Movements 0 Weight 115 kg - Imaging and Cardiology Imaging: Impressions Chest CT 04/20/18 00:00 CONCLUSION: 1. Bilateral multifocal airspace groundglass opacities. Given the distribution adjacent to vascular structures and enlargement of cardiac silhouette this likely represents congestive heart failure with pulmonary edema. Area of rounded airspace consolidation involving the right upper lobe abuts the pleura with focal thickening of the pleural surface. Findings are compatible with rounded atelectasis versus irregular parenchymal mass. Right-sided pleural effusion is noted above. Pulmonary Perfusion Imaging 04/20/18 00:00 CONCLUSION: 1. Multiple small matched perfusion and ventilation defects. Low probability of PE. Assessment and Plan - Assessment (1) Heart failure of unknown etiology Code(s): I50.9 - Heart failure, unspecified Status: Acute (2) Acute respiratory distress Code(s): R06.03 - Acute respiratory distress Status: Acute (3) Hypoxemia Code(s): R09.02 - Hypoxemia Status: Acute (4) D-dimer, elevated Code(s): R79.89 - Other specified abnormal findings of blood chemistry Status : Acute - Plan We will increase his metoprolol to 50mg BID. Patients overall condition has greatly improved. No new cardiac issues at this time, continue with current CHF treatment plan. Patient is cleared for discharge from a cardiology standpoint. The patient was seen and evaluated by Dr. Rusihng who participated in care, management and decision making. - Attending Attestation Patient seen and examined. I reviewed and agree with the evaluation and plan as presented. Continue tx for CHF. DC home. Will schedule outpt f/u.
== END 2018-04-22 10:48 | disposition home or self-care (01) ==
LOC: PHED 10:12 → PHEDH 13:07 → HCIS 18:11
PROVIDERS: ADMIT Internal Medicine; ATTEND Internal Medicine
DX: Z79.899 Other long term (current) drug therapy; Z79.82 Long term (current) use of aspirin; I21.4 Non-ST elevation (NSTEMI) myocardial infarction; J18.9 Pneumonia, unspecified organism; E87.1 Hypo-osmolality and hyponatremia; I11.0 Hypertensive heart disease with heart failure; R09.02 Hypoxemia; Z91.19 Patient's noncompliance with other medical treatment and regimen; F41.9 Anxiety disorder, unspecified; R06.03 Acute respiratory distress; I50.23 Acute on chronic systolic (congestive) heart failure; I42.9 Cardiomyopathy, unspecified; R91.8 Other nonspecific abnormal finding of lung field